=== PATIENT | male | born 1945 | race Two or more races ===

== ENCOUNTER 2018-11-20 21:08 | Inpatient (IN) | payer MEDICARE, OTHER ==
[~2018-11-20] VITALS: Ht 170.2 cm; Wt 74.6 kg
[2018-11-20 22:25] LABS: Basophils # (auto) 0.1 uL; Basophils % (auto) 1.6 % (0.0-2.0); Eosinophils # (auto) 0.1 uL; Eosinophils % (auto) 2.7 % (0.0-7.0); Hematocrit 42.5 % (41.0-53.0); Hemoglobin 14.2 g/dL (13.5-17.5); Lymphocytes # (auto) 0.7 uL; Lymphocytes % (auto) 14.3 % (10.0-50.0); Mean Corpuscular Hemoglobin 31.3 pg (28.0-32.0); Mean Corpuscular Hgb Conc. 33.4 g/dL (32.0-36.0); Mean Corpuscular Volume 93.7 fL (80.0-100.0); Monocytes # (auto) 0.7 uL; Neutrophils # (auto) 3.3 uL; Neutrophils % (auto) 66.4 % (37.0-80.0); Nucleated Red Blood Cells % 0.1 %; Platelet Count (auto) 143 10^3/uL (140-450); Red Blood Cells 4.54 10^6/uL (4.5-5.90); Red Cell Distribution Width 17.6 % (11.8-14.3)
[2018-11-20 22:37] LABS: Potassium 4.5 mmol/L (3.5-5.1)
[2018-11-20 22:45] LABS: Albumin 3.6 g/dL (3.4-5.0); BUN/Creatinine Ratio 20.2; Bilirubin, Total 0.9 mg/dL (0.2-1.0); Total Protein 7.6 g/dL (6.4-8.2)
[2018-11-21 01:39] LABS: Urine Bacteria NONE SEEN /hpf (None Seen); Urine Blood Negative /uL (Negative); Urine Hyaline Cast FEW /lpf (0 - 2); Urine Specific Gravity 1.011 (1.001-1.035); Urine WBC <1 /hpf (0 - 3)
[2018-11-21] MEDS ORDERED: FUROSEMIDE 20 MG/2 ML VIAL IV ONE (03:15)
[2018-11-21] MEDS ORDERED: diphenhdrAMINE HCL 25 MG CAP PO PRN (04:00)
[2018-11-21] MEDS ORDERED: traMADol HCL 50 MG TAB PO PRN (04:00)
[2018-11-21] MEDS ORDERED: DOCUSATE SOD 100 MG CAP PO PRN (04:00)
[2018-11-21] MEDS ORDERED: MORPHINE SULF INJ 2 MG/ML SYRINGE 1ML IV PRN (04:00)
[2018-11-21] MEDS ORDERED: ACETAMINOPHEN 500 MG TAB PO PRN (04:00)
[2018-11-21] MEDS ORDERED: ONDANSETRON HCL 4 MG/2 ML VIAL IV PRN (04:00)
[2018-11-21] MEDS ORDERED: NITROGLYCERIN 0.4 MG SL TAB SL PRN (04:00)
[2018-11-21] MEDS ORDERED: cloNIDine HCL 0.1 MG TAB PO PRN (04:15)
[2018-11-21] MEDS ORDERED: ALBUTEROL SULF 2.5 MG/0.5ML(0.5%) NEB SOLN NEB ONE (04:30)
[2018-11-21] MEDS ORDERED: IPRATROPIUM BROM 0.5 MG/2.5ML INH SOL NEB ONE (04:30)
--- NOTE | 2018-11-21 05:13 | NUR ---
Telemetry admit from ER BIPIN RAPHAEL admitted to Telemetry unit after SBAR received. Patient oriented to Bob Alvarado primary RN, unit, room, bed, and unit policies regarding patient care and visiting hours. Patient now on continuous telemetry monitoring, tele box # 36 and telemetry reading on arrival to unit is sinus tachycardia. Patient placed on bedside oxygen, weighed by bedscale and encouraged to call if they need something. All questions and concerns addressed, patient verbalized understanding.
[2018-11-21 05:46] VITALS: BP 143/85
[2018-11-21] MEDS: FUROSEMIDE 40 MG/4 ML VIAL IV SCH ×2 (05:49→17:02)
--- NOTE | 2018-11-21 08:05 | NUR ---
Opening Shift Note Assumed care of patient. Patient is awake, alert, and expressing frustration with unwanted hospital stay. Patient has left forearm IV 18 gauge peripheral IV. No S/S of distress/SOB or pain. Instructed on POC and to call for assist PRN, will continue to monitor for changes Q1hr and PRN.
[2018-11-21 08:46] LABS: Basophils # (auto) 0.1 uL; Basophils % (auto) 1.1 % (0.0-2.0); Eosinophils # (auto) 0.1 uL; Eosinophils % (auto) 0.8 % (0.0-7.0); Hematocrit 47.2 % (41.0-53.0); Hemoglobin 15.7 g/dL (13.5-17.5); Lymphocytes # (auto) 0.6 uL; Lymphocytes % (auto) 9.6 % (10.0-50.0); Mean Corpuscular Hemoglobin 31.2 pg (28.0-32.0); Mean Corpuscular Hgb Conc. 33.3 g/dL (32.0-36.0); Mean Corpuscular Volume 93.7 fL (80.0-100.0); Monocytes # (auto) 0.5 uL; Monocytes % (auto) 8.4 % (0.0-12.0); Neutrophils # (auto) 4.9 uL; Neutrophils % (auto) 80.1 % (37.0-80.0); Nucleated Red Blood Cells % 0.1 %; Platelet Count (auto) 162 10^3/uL (140-450); Red Blood Cells 5.04 10^6/uL (4.5-5.90); White Blood Cell 6.1 10^3/uL (4.4-10.8)
[2018-11-21 09:00] VITALS: BP 127/86
[2018-11-21 09:03] LABS: BUN/Creatinine Ratio 18.8; Calcium 9.2 mg/dL (8.5-10.1); Potassium 3.6 mmol/L (3.5-5.1)
[2018-11-21] MEDS: PANTOPRAZOLE 40 MG TAB PO SCH (09:50)
[2018-11-21] MEDS: ASPirin-EC 81 mg tab PO SCH (09:50)
[2018-11-21] MEDS ORDERED: ENOXAPARIN SOD 40 MG/0.4 ML SYRINGE SC SCH (10:00)
[2018-11-21] MEDS ORDERED: OPTISON 3ml Vial for INJ IV ONE (10:38)
[2018-11-21] MEDS ORDERED: SACU1TAB PO (12:12)
[2018-11-21] MEDS ORDERED: CLON0.1T PO (12:12)
[2018-11-21] MEDS ORDERED: ASPI-231 PO (12:12)
[2018-11-21] MEDS ORDERED: FER325T PO (12:12)
[2018-11-21] MEDS ORDERED: FURO80TA3 PO (12:12)
[2018-11-21 13:00] VITALS: BP 134/113
--- NOTE | 2018-11-21 13:25 | NUR ---
MD Notification Upon entering room, patient was experiencing shortness of breath and change in mentation. Patient's vital signs were taken BP 132/93 HR 136, RR 20, Oxygen Saturation 89%. Patient was placed in Semi-Fowlers and placed on nasal cannula 3L; oxygen saturation now 91%. Dr. Solo was called and said cardiac consult would be placed. Will continue to monitor patient.
[2018-11-21 17:19] VITALS: BP 128/78
--- NOTE | 2018-11-21 17:45 | NUR ---
DR. EILSE AT BEDSIDE DISCUSSING POC WITH PATIENT AND FAMILY. DR. ELISE IS PATIENT'S RN FIELD CASE MANAGER. ORDER TO BE PLACED FOR NEUROLOGY CONSULT FOR PATIENTS CHANGE IN MENTATION.
--- NOTE | 2018-11-21 19:15 | NUR ---
Opening Shift Note Received report from Peggy SNYDER. Assumed care of patient, awake and alert, family at bedside. No S/S of distress/SOB or pain. Instructed on POC and to call for assist PRN. Fall precaution measures in place, will continue to monitor for changes Q1hr and PRN.
[2018-11-21 22:00] VITALS: BP 138/70
[2018-11-21] MEDS: CARVEDILOL 3.125 MG TAB PO SCH (22:19)
[2018-11-22 05:00] VITALS: BP 121/75
[2018-11-22 05:49] LABS: BUN/Creatinine Ratio 20.5; Calcium 8.4 mg/dL (8.5-10.1)
[2018-11-22] MEDS: FUROSEMIDE 40 MG/4 ML VIAL IV SCH ×2 (06:01→18:21)
[2018-11-22 08:00] VITALS: BP 119/73
[2018-11-22 09:00] VITALS: BP 119/73
[2018-11-22] MEDS ORDERED: POTASSIUM CHL 20 Meq TABLET PO ONE ×2 (09:15→09:30)
[2018-11-22] MEDS ORDERED: POTASSIUM EFFERVESENT TAB 25 MEQ PO ONE (09:15)
[2018-11-22] MEDS: CARVEDILOL 3.125 MG TAB PO SCH ×2 (10:32→21:19)
[2018-11-22] MEDS: ASPirin-EC 81 mg tab PO SCH (10:32)
[2018-11-22] MEDS: PANTOPRAZOLE 40 MG TAB PO SCH (10:32)
[2018-11-22 13:00] VITALS: BP 110/73
[2018-11-22 17:00] VITALS: BP 118/77
--- NOTE | 2018-11-22 19:30 | NUR ---
Opening Shift Note Assumed care of patient. Patient awake and alert. No S/S of distress/SOB or pain. Instructed on POC and to call for assist PRN, will continue to monitor for changes. Bed locked in lowest position and bed rails up x2. Call light within reach.
[2018-11-22 21:36] VITALS: BP 113/70
--- NOTE | 2018-11-22 21:40 | NUR ---
Oxygen saturation level at 90%. Nasal cannula placed on patient at 2.5lpm. Reassessment of 99% was recorded
[2018-11-23 05:06] VITALS: BP 132/87
[2018-11-23 05:58] LABS: Potassium 3.6 mmol/L (3.5-5.1)
[2018-11-23 06:01] LABS: BUN/Creatinine Ratio 21.1
[2018-11-23] MEDS: FUROSEMIDE 40 MG/4 ML VIAL IV SCH (06:32)
[2018-11-23 07:06] LABS: RPR Non Reactive (Non Reactive)
--- NOTE | 2018-11-23 07:50 | NUR ---
Opening Shift Note Assumed care of patient, awake and alert. No S/S of distress/SOB or pain. Instructed on POC and to call for assist PRN, will continue to monitor for changes Q1hr and PRN.
[2018-11-23 08:20] VITALS: BP 132/86
[2018-11-23 08:46] VITALS: BP 132/86
--- NOTE | 2018-11-23 10:00 | NUR ---
Per Doctor Germania, Patient can have MRI as out patient. Patient okay to continue with discharge.
[2018-11-23] MEDS ORDERED: FUROSEMIDE 40 MG/4 ML VIAL IV SCH (10:15)
[2018-11-23] MEDS: CARVEDILOL 3.125 MG TAB PO SCH (10:19)
[2018-11-23] MEDS: PANTOPRAZOLE 40 MG TAB PO SCH ×2 (10:19→10:28)
[2018-11-23] MEDS: ASPirin-EC 81 mg tab PO SCH ×2 (10:20→10:29)
--- NOTE | 2018-11-23 11:20 | NUR ---
Per Doctor Karoline, Patient can have CT as out patient. Patient is okay to continue with discharge.
--- NOTE | 2018-11-23 11:33 | NUR ---
Discharge instructions given as ordered. Encourage to follow up with PMD as instructed. All questions and concerns addressed. Patient verbalized understanding. Medication reconciliation form completed and copy given to patient. No home medications held in Pharmacy and none returned to patient, and no needed vaccines given. IV removed with catheter intact, pressure dressing applied. Telemetry unit returned to ICU. Patient taken to lobby via wheelchair per patient request with all personal belongings, accompanied by staff. No distress noted at time of departure.
--- NOTE | 2018-11-23 13:57 | NUR ---
assessment re: elise consult for discharge planning Patient is a 73 year old male who is alert and oriented. Patients cognitive abilities are intact. Prior to admission patient lived home with family and functioned independently. Patient informed me he is able to care for his own ADLs. Per patient he will return home to his prior living arrangements post discharge and family will transport him home. Patient informed me he has a cane and rollator for home use. Patient informed me his PCP is Dr Garces. Patient informed me he has good family support. Patient informed me he feels safe returning home on discharge. Patient has no post discharge needs at this time. I informed patient he has a right to speak to a social worker psychiatric regarding all care. I informed patient he has a right to participate in any and all discharge planning. Patient does not have a POA and advanced directive. I have offered patient information on POA and advanced directives. I informed the patient the advantages and benefits of having an Advanced Directive. Patient verbalized understanding and agreed to discharge plan. Addendum: 11/23/18 at 1400 by Carol DUVALL Amended: Links added.
== END 2018-11-23 11:25 | disposition home or self-care (01) | DRG 291 ==
LOC: ER 21:15 → TELE 21:16 → TELE-CENTR 11-21 05:13
PROVIDERS: ADMIT Nurse Practitioner Family; ATTEND Internal Medicine
DX: I13.0 Hypertensive heart and chronic kidney disease with heart failure and stage 1 through stage 4 chronic kidney disease, or unspecified chronic kidney disease (principal); I50.43 Acute on chronic combined systolic (congestive) and diastolic (congestive) heart failure; J96.00 Acute respiratory failure, unspecified whether with hypoxia or hypercapnia; N17.9 Acute kidney failure, unspecified; G93.40 Encephalopathy, unspecified; R18.8 Other ascites; K21.9 Gastro-esophageal reflux disease without esophagitis; I25.10 Atherosclerotic heart disease of native coronary artery without angina pectoris; N18.3 Chronic kidney disease, stage 3 (moderate); K74.60 Unspecified cirrhosis of liver; E87.6 Hypokalemia; E78.5 Hyperlipidemia, unspecified; G89.29 Other chronic pain; K57.90 Diverticulosis of intestine, part unspecified, without perforation or abscess without bleeding; E11.22 Type 2 diabetes mellitus with diabetic chronic kidney disease; F03.90 Unspecified dementia, unspecified severity, without behavioral disturbance, psychotic disturbance, mood disturbance, and anxiety; I25.5 Ischemic cardiomyopathy; Z83.49 Family history of other endocrine, nutritional and metabolic diseases; Z95.5 Presence of coronary angioplasty implant and graft; I25.2 Old myocardial infarction; Z95.1 Presence of aortocoronary bypass graft; Z95.810 Presence of automatic (implantable) cardiac defibrillator; Z86.74 Personal history of sudden cardiac arrest; Z79.899 Other long term (current) drug therapy
CPT/HCPCS: 36415; 36600; 71045; 76775; 80048; 80053; 81001; 82140; 82607; 82805; 83735; 83880; 84425; 84443; 84484; 85025; 86592; 87040; 93005; 93306; 94640; 94761; 96372; 96374; 96375; 97116; 97530; G0378; Q9956

== ENCOUNTER 2018-12-25 16:51 | Emergency (ER) | payer MEDICARE, OTHER ==
[~2018-12-25] VITALS: Ht 170.2 cm; Wt 70.3 kg
[~2018-12-25 16:51] MED LIST: ASPI-231 PO; CLON0.1T PO; FER325T PO; FURO80TA3 PO; SACU1TAB PO
[2018-12-25 23:53] VITALS: BP 138/95
== END 2018-12-26 | disposition home or self-care (01) ==
LOC: ER 16:54
DX: M54.2 Cervicalgia (principal); R55 Syncope and collapse; I11.0 Hypertensive heart disease with heart failure; I50.9 Heart failure, unspecified; I25.2 Old myocardial infarction; Z95.0 Presence of cardiac pacemaker; Z98.61 Coronary angioplasty status
CPT/HCPCS: 72125; 93005

== ENCOUNTER 2019-03-06 12:10 | Inpatient (IN) | payer MEDICARE, OTHER ==
[~2019-03-06] VITALS: Ht 170.2 cm; Wt 79.3 kg
[2019-03-06 12:40] LABS: Basophils # (auto) 0.1 uL; Basophils % (auto) 1.2 % (0.0-2.0); Eosinophils # (auto) 0.1 uL; Eosinophils % (auto) 1.5 % (0.0-7.0); Hemoglobin 16.6 g/dL (13.5-17.5); Lymphocytes # (auto) 0.5 uL; Lymphocytes % (auto) 11.1 % (10.0-50.0); Mean Corpuscular Hemoglobin 32.2 pg (28.0-32.0); Mean Corpuscular Hgb Conc. 33.9 g/dL (32.0-36.0); Mean Corpuscular Volume 94.9 fL (80.0-100.0); Monocytes # (auto) 0.5 uL; Monocytes % (auto) 10.8 % (0.0-12.0); Neutrophils # (auto) 3.7 uL; Neutrophils % (auto) 75.4 % (37.0-80.0); Nucleated Red Blood Cells % 0.1 %; Platelet Count (auto) 123 10^3/uL (140-450); Red Blood Cells 5.17 10^6/uL (4.5-5.90); Red Cell Distribution Width 19.2 % (11.8-14.3); White Blood Cell 4.9 10^3/uL (4.4-10.8)
[2019-03-06 12:53] LABS: Urine Bacteria NONE SEEN /hpf (None Seen); Urine Blood Negative /uL (Negative); Urine Specific Gravity 1.007 (1.001-1.035); Urine Sperm PRESENT /hpf (None Seen); Urine WBC 4 /hpf (0 - 3)
[2019-03-06 12:56] LABS: Albumin 3.6 g/dL (3.4-5.0); Calcium 9.3 mg/dL (8.5-10.1)
[2019-03-06 12:59] LABS: BUN/Creatinine Ratio 19.9; Total Protein 7.5 g/dL (6.4-8.2)
[2019-03-06 14:14] LABS: Magnesium 2.9 mg/dL (1.6-2.6)
[2019-03-06 14:25] LABS: INR 1.3 (0.9-1.15); Partial Thromboplastin Time 31.6 sec (23.64-32.05)
[2019-03-06] MEDS ORDERED: FUROSEMIDE 40 MG/4 ML VIAL IV ONE (15:45)
[2019-03-06] MEDS ORDERED: ACETAMINOPHEN 500 MG TAB PO PRN (17:15)
[2019-03-06] MEDS ORDERED: ONDANSETRON HCL 4 MG/2 ML VIAL IV PRN (17:15)
[2019-03-06] MEDS ORDERED: MORPHINE SULF INJ 2 MG/ML SYRINGE 1ML IV PRN ×2 (17:15)
[2019-03-06] MEDS ORDERED: HYDROcodone-ACET 5/325MG TAB PO PRN (17:15)
[2019-03-06] MEDS ORDERED: NITROGLYCERIN 0.4 MG SL TAB SL PRN (17:15)
[2019-03-06] MEDS ORDERED: NITROGLYCERIN 0.2MG/HR TOPICAL PATCH TD ONE (17:15)
[2019-03-06] MEDS: SPIRONOLACTONE 25 MG TAB PO SCH (17:30)
[2019-03-06 22:00] VITALS: BP 140/70
--- NOTE | 2019-03-06 22:00 | NUR ---
Telemetry admit from ER DONAVONBIPIN admitted to Telemetry unit after SBAR received. Patient oriented to STANTON MONTANEZ RN primary RN, unit, room, bed, and unit policies regarding patient care and visiting hours. Patient now on continuous telemetry monitoring, tele box #35 and telemetry reading on arrival to unit is VPACED. Patient placed on bedside oxygen, weighed by bedscale and encouraged to call if they need something. All questions and concerns addressed, patient verbalized understanding. Note:
[2019-03-06] MEDS: ATORVASTATIN 20 MG TAB PO SCH (22:26)
[2019-03-06] MEDS: CARVEDILOL 3.125 MG TAB PO SCH (22:26)
[2019-03-07] MEDS: SPIRONOLACTONE 25 MG TAB PO SCH (05:41)
[2019-03-07 05:48] VITALS: BP 123/82
--- NOTE | 2019-03-07 08:00 | NUR ---
Opening Shift Note Assumed care of patient, awake but very confused. No S/S of distress/SOB or pain. Patient kept getting out of the bed. Closely monitored. Will continue to monitor for changes Q1hr and PRN.
[2019-03-07 08:26] LABS: Basophils # (auto) 0.1 uL; Basophils % (auto) 1.8 % (0.0-2.0); Eosinophils # (auto) 0.1 uL; Eosinophils % (auto) 2.4 % (0.0-7.0); Hematocrit 48.5 % (41.0-53.0); Hemoglobin 16.3 g/dL (13.5-17.5); Lymphocytes # (auto) 0.6 uL; Lymphocytes % (auto) 12.1 % (10.0-50.0); Mean Corpuscular Hgb Conc. 33.5 g/dL (32.0-36.0); Mean Corpuscular Volume 95.5 fL (80.0-100.0); Monocytes # (auto) 0.7 uL; Monocytes % (auto) 13.1 % (0.0-12.0); Neutrophils # (auto) 3.6 uL; Neutrophils % (auto) 70.6 % (37.0-80.0); Nucleated Red Blood Cells % 0.1 %; Platelet Count (auto) 116 10^3/uL (140-450); Red Blood Cells 5.08 10^6/uL (4.5-5.90); Red Cell Distribution Width 19.8 % (11.8-14.3)
[2019-03-07 08:43] LABS: Albumin 3.3 g/dL (3.4-5.0); Calcium 9.1 mg/dL (8.5-10.1); Magnesium 2.9 mg/dL (1.6-2.6); Potassium 3.7 mmol/L (3.5-5.1)
[2019-03-07 08:47] LABS: BUN/Creatinine Ratio 19.4; Bilirubin, Total 2.1 mg/dL (0.2-1.0); Total Protein 7.5 g/dL (6.4-8.2)
[2019-03-07 09:00] VITALS: BP 106/73
[2019-03-07] MEDS: FAMOTIDINE 20 MG TAB PO SCH (09:33)
[2019-03-07] MEDS: ASPirin-EC 81 mg tab PO SCH (09:33)
[2019-03-07] MEDS: FUROSEMIDE 40 MG/4 ML VIAL IV SCH ×2 (09:33→18:29)
[2019-03-07] MEDS: CARVEDILOL 3.125 MG TAB PO SCH ×2 (09:37→22:04)
[2019-03-07] MEDS ORDERED: LOSARTAN POTASSIUM 50 MG TAB PO SCH (10:00)
--- NOTE | 2019-03-07 10:00 | NUR ---
Patient's at the bedside. Patient is calm at this time.
--- NOTE | 2019-03-07 10:50 | NUR ---
Patient pulled out Telebox, very confused and agitated. Patient's still at the bedside and agreed to stay during the day. Jossie SNYDER charge informed about this and will work on providing a sitter later.
[2019-03-07] MEDS ORDERED: metOLazone 5 MG TAB PO ONE (12:00)
[2019-03-07 13:00] VITALS: BP 102/78
[2019-03-07 16:20] VITALS: BP 122/80
--- NOTE | 2019-03-07 16:22 | NUR ---
Complaints of lightheadedness and headache. Patient stated that he started feeling these after taking the Metolazone PO given 2-3 hours ago VS taken and recorded. Will continue care. Addendum: 03/07/19 at 1851 by Jesse Christopher RN Patient and family does not want Metolazone PO given anymore.
[2019-03-07 17:00] VITALS: BP 121/80
[2019-03-07 22:00] VITALS: BP 111/72
[2019-03-07] MEDS: ATORVASTATIN 20 MG TAB PO SCH (22:05)
[2019-03-08 05:00] VITALS: BP 115/74
[2019-03-08 06:18] LABS: Anion Gap 8 (5-15); BUN/Creatinine Ratio 22.6; Blood Urea Nitrogen 38 mg/dL (7-18); Calcium 9.4 mg/dL (8.5-10.1); Carbon Dioxide 29 mmol/L (21-32); Chloride 103 mmol/L (98-107); GFR African American 51 mL/min; GFR Non-African American 43 mL/min; Glucose 90 mg/dL (74-106); Potassium 3.6 mmol/L (3.5-5.1); Sodium 140 mmol/L (136-145)
[2019-03-08] MEDS: FUROSEMIDE 40 MG/4 ML VIAL IV SCH ×2 (07:01→18:30)
[2019-03-08 08:00] VITALS: BP 117/72
--- NOTE | 2019-03-08 08:00 | NUR ---
Opening Shift Note Assumed care of patient, awake but confused. No S/S of distress/SOB or pain. With sitter at bedside. Will continue to monitor for changes Q1hr and PRN.
[2019-03-08] MEDS: ASPirin-EC 81 mg tab PO SCH (09:41)
[2019-03-08] MEDS ORDERED: metOLazone 5 MG TAB PO SCH (10:00)
[2019-03-08] MEDS: CARVEDILOL 3.125 MG TAB PO SCH ×2 (10:00→22:02)
[2019-03-08] MEDS: FAMOTIDINE 20 MG TAB PO SCH (10:00)
[2019-03-08] MEDS ORDERED: SPIRONOLACTONE 25 MG TAB PO SCH (10:00)
--- NOTE | 2019-03-08 10:30 | NUR ---
Dr. Wesley at bedside, patient is advised. Made him aware that patient experienced light headedness, headache and panic attacks yesterday after metolazone PO administration. Orders received from Dr. Wesley to discontinue the medication.
--- NOTE | 2019-03-08 16:52 | NUR ---
Increasing confusion noted. Sitter at the bedside. Continue to monitor.
[2019-03-08 21:30] VITALS: BP 101/63
[2019-03-08] MEDS: ATORVASTATIN 20 MG TAB PO SCH (22:02)
[2019-03-09 05:00] VITALS: BP 121/81
[2019-03-09] MEDS: FUROSEMIDE 40 MG/4 ML VIAL IV SCH (05:39)
[2019-03-09 06:47] LABS: Basophils # (auto) 0.1 uL; Basophils % (auto) 1.3 % (0.0-2.0); Eosinophils # (auto) 0.1 uL; Eosinophils % (auto) 2.7 % (0.0-7.0); Hematocrit 48.9 % (41.0-53.0); Hemoglobin 16.4 g/dL (13.5-17.5); Lymphocytes # (auto) 0.6 uL; Lymphocytes % (auto) 12.2 % (10.0-50.0); Mean Corpuscular Hemoglobin 31.9 pg (28.0-32.0); Mean Corpuscular Hgb Conc. 33.5 g/dL (32.0-36.0); Mean Corpuscular Volume 95.2 fL (80.0-100.0); Monocytes # (auto) 0.6 uL; Monocytes % (auto) 11.9 % (0.0-12.0); Neutrophils # (auto) 3.6 uL; Neutrophils % (auto) 71.9 % (37.0-80.0); Nucleated Red Blood Cells % 0.4 %; Platelet Count (auto) 113 10^3/uL (140-450); Red Blood Cells 5.13 10^6/uL (4.5-5.90); White Blood Cell 4.9 10^3/uL (4.4-10.8)
[2019-03-09 07:02] LABS: Albumin 3.3 g/dL (3.4-5.0); Calcium 9.2 mg/dL (8.5-10.1); Magnesium 2.8 mg/dL (1.6-2.6); Potassium 3.7 mmol/L (3.5-5.1)
[2019-03-09 07:05] LABS: INR 1.37 (0.9-1.15)
[2019-03-09 07:06] LABS: BUN/Creatinine Ratio 24.4; Bilirubin, Total 1.4 mg/dL (0.2-1.0); Phosphorus 3.4 mg/dL (2.5-4.90); Total Protein 7.2 g/dL (6.4-8.2)
--- NOTE | 2019-03-09 08:00 | NUR ---
Opening Shift Note Assumed care of patient, awake with periods of confusion. No S/S of distress/SOB or pain. With sitter at bedside. Will continue to monitor for changes Q1hr and PRN.
--- NOTE | 2019-03-09 08:45 | NUR ---
AMA Note BIPIN RAPHAEL stated he want to go home, patient is confused. Patient's son came in and stated the family wanted to leave the hospital Against Medical Advice (AMA). Encouraged to stay for further treatment/stabilization. Nereyda Couch MD notified of patient's wishes. Patient/patient's son advised of the risks and benefits of leaving AMA. Patient's son verbalized understanding. Encouraged to return to the ER if symptoms do not improve or worsen.
[2019-03-09] MEDS ORDERED: ENOXAPARIN SOD 40 MG/0.4 ML SYRINGE SC SCH (10:00)
[2019-03-09] MEDS ORDERED: LISINOPRIL 5 MG TAB PO SCH (10:00)
== END 2019-03-09 08:45 | disposition left against medical advice (07) | DRG 291 ==
LOC: ER 12:10 → TELE 12:11 → TELE-CENTR 20:08
PROVIDERS: ADMIT Nurse Practitioner Acute Care; ATTEND Internal Medicine
DX: I13.0 Hypertensive heart and chronic kidney disease with heart failure and stage 1 through stage 4 chronic kidney disease, or unspecified chronic kidney disease (principal); J96.01 Acute respiratory failure with hypoxia; I50.43 Acute on chronic combined systolic (congestive) and diastolic (congestive) heart failure; N17.9 Acute kidney failure, unspecified; E44.0 Moderate protein-calorie malnutrition; D69.6 Thrombocytopenia, unspecified; N18.3 Chronic kidney disease, stage 3 (moderate); K70.30 Alcoholic cirrhosis of liver without ascites; Z53.29 Procedure and treatment not carried out because of patient's decision for other reasons; F32.9 Major depressive disorder, single episode, unspecified; I25.5 Ischemic cardiomyopathy; I25.10 Atherosclerotic heart disease of native coronary artery without angina pectoris; E78.5 Hyperlipidemia, unspecified; Z79.82 Long term (current) use of aspirin; Z95.810 Presence of automatic (implantable) cardiac defibrillator; Z82.49 Family history of ischemic heart disease and other diseases of the circulatory system; Z95.1 Presence of aortocoronary bypass graft; Z95.5 Presence of coronary angioplasty implant and graft; Z87.891 Personal history of nicotine dependence; Z68.27 Body mass index [BMI] 27.0-27.9, adult
CPT/HCPCS: 36415; 71045; 80048; 80053; 80061; 81001; 83735; 83880; 84100; 84443; 84484; 85025; 85610; 85730; 86141; 93005; 96374; G0378

== ENCOUNTER 2019-04-17 04:15 | Inpatient (IN) | payer MEDICARE, OTHER ==
[~2019-04-17] VITALS: Ht 177.8 cm; Wt 68.6 kg
[2019-04-17] VITALS (67 sets, daily range): BP systolic 92–138; BP diastolic 50–103
[2019-04-17] MEDS ORDERED: LORazepam 2MG/ML-1ML VIAL IV ONE (04:45)
[2019-04-17] MEDS ORDERED: SODIUM CHLORIDE 0.9% 1,000 ML IV ONE (05:00)
[2019-04-17] MEDS ORDERED: VANCOMYCIN 1GM/250ML 250 ML IV ONE (05:00)
[2019-04-17] MEDS ORDERED: PIPERACILLIN-TAZOB 3.375GM 100 ML IV ONE (05:00)
[2019-04-17] MEDS ORDERED: VANCOMYCIN PER PHARMACY 0 MG IV SCH ×2 (05:00→07:45)
[2019-04-17 05:14] LABS: Basophils # (auto) 0.1 10 ^3/uL (0-0.2); Basophils % (auto) 0.8 % (0.0-2.0); Eosinophils # (auto) 0.1 10 ^3/uL (0-0.8); Eosinophils % (auto) 2.2 % (0.0-7.0); Hematocrit 46.3 % (41.0-53.0); Hemoglobin 15.8 g/dL (13.5-17.5); Lymphocytes # (auto) 1.1 10 ^3/uL (0.4-5.4); Lymphocytes % (auto) 17.4 % (10.0-50.0); Mean Corpuscular Hemoglobin 32.4 pg (28.0-32.0); Mean Corpuscular Hgb Conc. 34.1 g/dL (32.0-36.0); Mean Corpuscular Volume 95.1 fL (80.0-100.0); Monocytes # (auto) 0.7 10 ^3/uL (0-1.3); Monocytes % (auto) 10.6 % (0.0-12.0); Neutrophils # (auto) 4.5 10 ^3/uL (1.6-8.6); Nucleated Red Blood Cells % 0.3 %; Platelet Count (auto) 132 10^3/uL (140-450); Red Blood Cells 4.87 10^6/uL (4.5-5.90); Red Cell Distribution Width 18.6 % (11.8-14.3); White Blood Cell 6.5 10^3/uL (4.4-10.8)
[2019-04-17 05:18] LABS: Urine Bacteria FEW /hpf (None Seen); Urine Blood TRACE /uL (Negative); Urine Hyaline Cast MANY /lpf (0 - 2); Urine Mucus FEW (None Seen); Urine Specific Gravity 1.014 (1.001-1.035); Urine WBC 11 /hpf (0 - 3); Urine WBC Clumps PRESENT /hpf (None Seen)
[2019-04-17 05:25] LABS: INR 1.4 (0.9-1.15); Partial Thromboplastin Time 29.3 sec (23.64-32.05)
[2019-04-17] MEDS ORDERED: ACETAMINOPHEN 650 MG RECT SUPP PR ONE (05:30)
[2019-04-17 05:32] LABS: Chloride 108 mmol/L (98-107); Lactic Acid w/Reflex 3.5 mmol/L (0.4-2.0); Sodium 141 mmol/L (136-145)
[2019-04-17 05:37] LABS: Alanine Aminotransferase 22 U/L (16-61); Albumin 3.4 g/dL (3.4-5.0); Anion Gap 11 (5-15); Aspartate Aminotransferase 23 U/L (15-37); BUN/Creatinine Ratio 18.5; Blood Alcohol < 3.0 mg/dL (0-5); Blood Urea Nitrogen 30 mg/dL (7-18); Calcium 9.1 mg/dL (8.5-10.1); Carbon Dioxide 22 mmol/L (21-32); GFR African American 54 mL/min; GFR Non-African American 44 mL/min; Glucose 131 mg/dL (74-106); Magnesium 2.3 mg/dL (1.6-2.6)
[2019-04-17 05:40] LABS: Alcohol, Urine < 3.0 mg/dL (0-5); Amphetamine Screen, Urine NEGATIVE (NEGATIVE); Barbiturate Scree,Urine NEGATIVE (NEGATIVE); Benzodiazephine Screen, Urine NEGATIVE (NEGATIVE); Cannabinoid Screen, Urine NEGATIVE (NEGATIVE); Cocaine Screen, Urine NEGATIVE (NEGATIVE); Opiate Scree,Urine NEGATIVE (NEGATIVE); Phencyclidine Screen, Urine NEGATIVE (NEGATIVE)
[2019-04-17 05:42] LABS: Alkaline Phosphatase 144 U/L (45-117); Bilirubin, Total 1.5 mg/dL (0.2-1.0); Total Protein 7.3 g/dL (6.4-8.2)
[2019-04-17] MEDS ORDERED: MIDAZOLAM DRIP 50 mg/50mL 50 ML IV ONE (06:12)
[2019-04-17] MEDS ORDERED: ETOMIDATE (2MG/ML) 20ML VIAL IV ONE ×2 (06:12→06:15)
[2019-04-17] MEDS ORDERED: SUCCINYLCHOLINE CHLORIDE 20 MG/ML 10ML VIAL IV ONE ×2 (06:13→06:15)
[2019-04-17] MEDS ORDERED: NOREPINEPHRINE 8 MG/250ML KIT 250 ML IV ONE (06:13)
[2019-04-17] MEDS ORDERED: NOREPINEPHRINE 8 MG/250ML KIT 250 ML IV SCH (06:15)
[2019-04-17] MEDS ORDERED: POTASSIUM CHL 20MEQ/100ML 100 ML IV ONE (06:30)
[2019-04-17] MEDS: MIDAZOLAM DRIP 50 mg/50mL 50 ML IV SCH ×2 (06:52→11:52)
[2019-04-17] MEDS ORDERED: NITROGLYCERIN 0.4 MG SL TAB SL PRN (07:45)
[2019-04-17] MEDS ORDERED: ONDANSETRON HCL 4 MG/2 ML VIAL IV PRN (07:45)
[2019-04-17] MEDS ORDERED: ENOXAPARIN SOD 100 MG/1 ML SYRINGE SC ONE (07:45)
[2019-04-17] MEDS ORDERED: MORPHINE SULF INJ 2 MG/ML SYRINGE 1ML IV PRN (07:45)
[2019-04-17] MEDS ORDERED: ACETAMINOPHEN 325 MG TAB PO PRN (07:45)
[2019-04-17] MEDS ORDERED: ENOXAPARIN SOD 80 MG/0.8ML SYRINGE SC ONE (08:00)
[2019-04-17] MEDS: FUROSEMIDE 40 MG/4 ML VIAL IV SCH ×2 (08:24→18:28)
--- NOTE | 2019-04-17 09:10 | NUR ---
RECEIVED PT AT ICU AT 0910
--- NOTE | 2019-04-17 10:10 | NUR ---
DR. RAPHAEL UPDATED DR RAPHAEL OVER TELEPHONE ON PT STATUS
--- NOTE | 2019-04-17 10:10 | NUR ---
ADVANCED ETT, ETT NOW SECURED AT 24 CM AT THE LIP WITH CHERY. EQUAL BILAT BREATH SOUNDS AUSCULTATED.
[2019-04-17] MEDS: ASPirin 81 mg TAB PO SCH (10:51)
[2019-04-17] MEDS: PANTOPRAZOLE 40 MG/10 ML VIAL INJ IV SCH (10:51)
--- NOTE | 2019-04-17 11:00 | NUR ---
FAMILY AT BEDSIDE FAMILY UPDATED ON PT CARE, QUESTIONS AND CONCERNS ADDRESSED
--- NOTE | 2019-04-17 11:14 | NUR ---
MEDICATION RECONCILIATION INSTRUCTED TO BRING IN HOME MEDICATIONS. PER SHE WILL BRING IN MEDICATIONS TONIGHT OR TOMORROW
[2019-04-17] MEDS: PIPERACILLIN-TAZOB 3.375GM 100 ML IV SCH ×2 (11:52→18:29)
[2019-04-17] MEDS: POTASSIUM CHL 20MEQ/100ML 100 ML IV SCH ×2 (12:03→13:31)
--- NOTE | 2019-04-17 13:23 | NUR ---
DR. BATEMAN AT BEDSIDE UPDATED MD ON PT STATUS AND LABS
--- NOTE | 2019-04-17 16:47 | NUR ---
PAGED DR ELISE LEFT MESSAGE ABOUT ELEVATED TROPONIN LEVELS
--- NOTE | 2019-04-17 17:37 | NUR ---
WOUND CARE NOTE: Wound care into see patient per wound care request regarding "skin tear left wrist, low Sathya" that are noted present on admission. Bedside nurse took photograph of patient's wound upon admission for reference. Patient is 74 years old male with admitting diagnosis of Acute Resp Failure, Sepsis. Patient with history of Depression, Htn, MA, COPD, CHF, CAD. Patient is resting in ICU bed in Rm. 105. Patient is intubated,sedated and mechanically ventilated. Patient appears to be in no pain using [place] Wolf Faces Pain Scale. His Sathya score is 13. Skin assessment done with the assistance of patient's nurse, CLAUDIO Singer. Patient's L wrist noted with 2x2cm open full thickness skin tear. Wound is red with purple ecchymotic periwound, minimal sanguinous drainage noted, no odor noted. Cleansed patient's L wrist skin tears with NS,patted dry with gauze, applied Thera honey gauze and covered with Opti foam gentle dressing. Patient's bilateral feet noted with red, mottled, blanchable skin but more prominent to L foot; are is clean and dry, left open to air. No pressure injury noted. Patient tolerated well. CLAUDIO Singer at bedside with student nurse groundwater consultant to change linen and reposition patient. RECOMMENDATION: Nursing to continue with BID/PRN cleaning and application Barrier cream to sacral, buttocks as preventative; Q3days/PRN dressing change to Lt wrist skin tear per MD order, Dietary consult for low Sathya score and wound, frequent turning and repositioning schedule as condition permits, redistribute pressure points with pillows,keep heels elevated on pillows, continue monitoring by wound care while patient is hospitalized. Addendum: 04/17/19 at 1845 by Nia Bañuelos RN Amended: Links added.
--- NOTE | 2019-04-17 20:07 | NUR ---
received inbe in no acute resp. distress and no blood oozing from right IJ site. Eufemia HERRERA in to see pt and put a suture to control bleeding
[2019-04-18] VITALS (102 sets, daily range): BP systolic 86–133; BP diastolic 50–89
[2019-04-18] MEDS: PIPERACILLIN-TAZOB 3.375GM 100 ML IV SCH ×5 (00:07→23:47)
[2019-04-18] MEDS: MIDAZOLAM DRIP 50 mg/50mL 50 ML IV SCH ×6 (02:06→19:58)
[2019-04-18 04:08] LABS: Basophils # (auto) 0.1 10 ^3/uL (0-0.2); Basophils % (auto) 0.9 % (0.0-2.0); Eosinophils # (auto) 0 10 ^3/uL (0-0.8); Eosinophils % (auto) 0.5 % (0.0-7.0); Hematocrit 45.6 % (41.0-53.0); Hemoglobin 15.1 g/dL (13.5-17.5); Lymphocytes # (auto) 0.4 10 ^3/uL (0.4-5.4); Lymphocytes % (auto) 6.8 % (10.0-50.0); Mean Corpuscular Hemoglobin 31.6 pg (28.0-32.0); Mean Corpuscular Volume 95.8 fL (80.0-100.0); Monocytes # (auto) 0.6 10 ^3/uL (0-1.3); Monocytes % (auto) 9.4 % (0.0-12.0); Neutrophils # (auto) 5.2 10 ^3/uL (1.6-8.6); Neutrophils % (auto) 82.4 % (37.0-80.0); Nucleated Red Blood Cells % 0.1 %; Platelet Count (auto) 117 10^3/uL (140-450); Red Blood Cells 4.76 10^6/uL (4.5-5.90); Red Cell Distribution Width 18.4 % (11.8-14.3); White Blood Cell 6.3 10^3/uL (4.4-10.8)
[2019-04-18 04:30] LABS: Potassium 3.1 mmol/L (3.5-5.1)
[2019-04-18] MEDS: VANCOMYCIN 1GM/250ML 250 ML IV SCH (04:33)
[2019-04-18 04:40] LABS: Albumin 2.7 g/dL (3.4-5.0); BUN/Creatinine Ratio 16.9; Bilirubin, Total 1.8 mg/dL (0.2-1.0); Calcium 8.5 mg/dL (8.5-10.1); Magnesium 2.4 mg/dL (1.6-2.6); Total Protein 6.3 g/dL (6.4-8.2)
--- NOTE | 2019-04-18 04:54 | NUR ---
Dr Foster was called for K that is3.1
--- NOTE | 2019-04-18 05:57 | NUR ---
Called Dr. Foster 2nd time forK3.1
[2019-04-18] MEDS ORDERED: POTASSIUM CHL 20MEQ/100ML 100 ML IV ONE (06:00)
[2019-04-18] MEDS: FUROSEMIDE 40 MG/4 ML VIAL IV SCH ×2 (06:08→18:06)
[2019-04-18] MEDS: PANTOPRAZOLE 40 MG/10 ML VIAL INJ IV SCH (10:21)
[2019-04-18] MEDS: ASPirin 81 mg TAB PO SCH (10:21)
--- NOTE | 2019-04-18 11:10 | NUR ---
FAMILY AT BEDSIDE UPDATED FAMILY ON POC, ADDRESSED THEIR QUESTIONS AND CONCERNS
--- NOTE | 2019-04-18 12:50 | NUR ---
FAMILY AT BEDSIDE UPDATED FAMILY ON POC, ADDRESSED 'S (ALONDRA) QUESTIONS AND CONCERNS
--- NOTE | 2019-04-18 13:30 | NUR ---
DR ELISE AT BEDSIDE SPOKE WITH FAMILY MEMBERS REGARDING POC AND ALL QUESTIONS AND CONCERNS ARE ADDRESSED.
--- NOTE | 2019-04-18 14:00 | NUR ---
NUTRITION ASSESSMENT NOTES Please refer to link notes of nutrition screen form filed under the intervention section of the plan of care for further details. Est. Energy Needs: 1181-1178 kcal (20-23 kcal/kg BW). Est. Protein Needs: 94-117 gms/day (1.2-1.5 gms/kg Adj.BW). Will continue to monitor pertinent labs and reassess nutrient need prn Addendum: 04/18/19 at [address] Amended: Links added.
--- NOTE | 2019-04-18 14:05 | NUR ---
PACEMAKER INTERROGATION RN AT BEDSIDE
--- NOTE | 2019-04-18 14:10 | NUR ---
DR BATEMAN AT BEDSIDE MD AT BEDSIDE
--- NOTE | 2019-04-18 14:16 | NUR ---
DR. BATEMAN AT BEDSIDE
--- NOTE | 2019-04-18 16:09 | NUR ---
ss consult Patient needs PCP. Per Carol Sandy patients PCP is Dr Suarez. Addendum: 04/18/19 at 1610 by Carol DUVALL Amended: Links added.
--- NOTE | 2019-04-18 16:10 | NUR ---
DR. RAPHAEL AT BEDSIDE MD PERFORMED THORACENTESIS, 2 LITER OF PLEURAL FLUID REMOVED AND SENT TO LAB.
--- NOTE | 2019-04-18 17:42 | NUR ---
DR. RAPHAEL AT BEDSIDE MD DISCUSSED POC WITH (ALONDRA)
--- NOTE | 2019-04-18 21:30 | NUR ---
received on versed drip and pt is only rsponsive by deep painful stimuli. Tachypneic but not in acute resp distress
[2019-04-18] MEDS: POTASSIUM CHL 10 Meq TABLET PO SCH (21:47)
[2019-04-18] MEDS: SACUBITRIL-VALSARTAN 24mg/26mg TAB PO SCH (21:47)
--- NOTE | 2019-04-18 22:24 | NUR ---
Very anxious this time and tachpneic, Bp is high 133/74. Encouraged to take adeep breath and dont talk . oral care give. ativan 1 mg Ivp given Addendum: 04/19/19 at 0138 by MARVIN ROSS RN RN ERROR DOCUMENTATION ABOVE NOTES INTENDED FOR ANOTHER PT
[2019-04-19] VITALS (103 sets, daily range): BP systolic 75–122; BP diastolic 40–73
[2019-04-19] MEDS ORDERED: ALBUMIN 5% 250 ML IV ONE ×2 (01:00→01:02)
[2019-04-19] MEDS: MIDAZOLAM DRIP 50 mg/50mL 50 ML IV SCH ×2 (01:06→04:48)
--- NOTE | 2019-04-19 01:38 | NUR ---
bp was 85/45 and recycled three times and systolic remains below 90. Dr. Foster was called about low BP and ordered albumin 250ml 5% at a bolus rate 1x only
[2019-04-19 03:56] LABS: Basophils # (auto) 0.1 10 ^3/uL (0-0.2); Basophils % (auto) 0.7 % (0.0-2.0); Eosinophils # (auto) 0 10 ^3/uL (0-0.8); Eosinophils % (auto) 0.1 % (0.0-7.0); Hematocrit 48.1 % (41.0-53.0); Lymphocytes # (auto) 0.5 10 ^3/uL (0.4-5.4); Lymphocytes % (auto) 5.7 % (10.0-50.0); Mean Corpuscular Hemoglobin 31.8 pg (28.0-32.0); Mean Corpuscular Hgb Conc. 33.3 g/dL (32.0-36.0); Mean Corpuscular Volume 95.3 fL (80.0-100.0); Monocytes # (auto) 1.1 10 ^3/uL (0-1.3); Monocytes % (auto) 11.8 % (0.0-12.0); Neutrophils # (auto) 7.3 10 ^3/uL (1.6-8.6); Neutrophils % (auto) 81.7 % (37.0-80.0); Nucleated Red Blood Cells % 0.1 %; Platelet Count (auto) 125 10^3/uL (140-450); Red Blood Cells 5.05 10^6/uL (4.5-5.90); Red Cell Distribution Width 18.3 % (11.8-14.3)
[2019-04-19 04:15] LABS: Calcium 8.8 mg/dL (8.5-10.1); Potassium 3.2 mmol/L (3.5-5.1)
[2019-04-19 04:17] LABS: BUN/Creatinine Ratio 16.1
[2019-04-19 04:22] LABS: Albumin 2.7 g/dL (3.4-5.0)
[2019-04-19 04:33] LABS: Bilirubin, Total 2.1 mg/dL (0.2-1.0); Total Protein 6.3 g/dL (6.4-8.2)
[2019-04-19 04:36] LABS: Bilirubin, Direct 1.1 mg/dL (0-0.2)
[2019-04-19] MEDS: VANCOMYCIN 1GM/250ML 250 ML IV SCH ×2 (04:44→04:58)
--- NOTE | 2019-04-19 05:03 | NUR ---
Dr. Foster was paged for K level of 3.1
[2019-04-19] MEDS ORDERED: POTASSIUM CHL 20MEQ/100ML 100 ML IV ONE ×2 (05:45→14:15)
[2019-04-19] MEDS: PIPERACILLIN-TAZOB 3.375GM 100 ML IV SCH ×3 (06:09→17:37)
[2019-04-19] MEDS: FUROSEMIDE 40 MG/4 ML VIAL IV SCH ×2 (06:16→17:37)
--- NOTE | 2019-04-19 07:45 | NUR ---
OPENING Report received from Vicki SNYDER. Care initiated and initial assessment completed.
[2019-04-19] MEDS: PANTOPRAZOLE 40 MG/10 ML VIAL INJ IV SCH (09:57)
[2019-04-19] MEDS: ASPirin 81 mg TAB PO SCH (09:57)
[2019-04-19] MEDS: POTASSIUM CHL 10 Meq TABLET PO SCH ×2 (09:58→22:00)
[2019-04-19] MEDS: SACUBITRIL-VALSARTAN 24mg/26mg TAB PO SCH ×2 (09:58→22:26)
--- NOTE | 2019-04-19 10:30 | NUR ---
CENTRAL LINE DRESSING CHANGE Central line dressing change done with sterile technique. Cleansed with chloraprep scrub. Biopatch applied. Occlusive dressing applied.
--- NOTE | 2019-04-19 11:00 | NUR ---
BEDSIDE Dr. Padgett bedside.
--- NOTE | 2019-04-19 12:00 | NUR ---
BEDSIDE Dr. Pendleton bedside.
[2019-04-19] MEDS ORDERED: AMIODARONE HCL 200 MG TAB PO ONE (14:00)
--- NOTE | 2019-04-19 19:16 | NUR ---
RECEIVED PATIENT LETHARGIC ND NO MOANING THIS TIME ON BIPAP16/6 ,BUR-12 and 70% of o2 Addendum: 04/19/19 at 2116 by MARVIN ROSS RN RN please take note of the above notes to be an error
[2019-04-19] MEDS ORDERED: AMIODARONE HCL 900 MG in DEXTROSE 500 ML IV SCH (20:21)
--- NOTE | 2019-04-19 21:16 | NUR ---
Dr. Pimentel was called thru the answering service to verify an ordwer made yessica
[2019-04-19] MEDS ORDERED: AMIODARONE HCL 200 MG TAB PO SCH (22:00)
--- NOTE | 2019-04-19 22:28 | NUR ---
potassium po ordwered cant be given crushed and pt has NGT, unable to swallow
[2019-04-20] VITALS (86 sets, daily range): BP systolic 71–109; BP diastolic 38–66
--- NOTE | 2019-04-20 04:12 | NUR ---
Condition unchanged, responding to pain
[2019-04-20 04:26] LABS: Basophils # (auto) 0 10 ^3/uL (0-0.2); Basophils % (auto) 0.3 % (0.0-2.0); Eosinophils # (auto) 0 10 ^3/uL (0-0.8); Eosinophils % (auto) 0.2 % (0.0-7.0); Hematocrit 51.9 % (41.0-53.0); Hemoglobin 17.4 g/dL (13.5-17.5); Lymphocytes # (auto) 0.5 10 ^3/uL (0.4-5.4); Lymphocytes % (auto) 5.6 % (10.0-50.0); Mean Corpuscular Hgb Conc. 33.5 g/dL (32.0-36.0); Mean Corpuscular Volume 95.6 fL (80.0-100.0); Monocytes # (auto) 1.1 10 ^3/uL (0-1.3); Neutrophils # (auto) 7.4 10 ^3/uL (1.6-8.6); Neutrophils % (auto) 81.9 % (37.0-80.0); Nucleated Red Blood Cells % 0.1 %; Platelet Count (auto) 120 10^3/uL (140-450); Red Blood Cells 5.43 10^6/uL (4.5-5.90); Red Cell Distribution Width 18.7 % (11.8-14.3); White Blood Cell 9.1 10^3/uL (4.4-10.8)
[2019-04-20] MEDS: VANCOMYCIN 1GM/250ML 250 ML IV SCH (04:43)
[2019-04-20 04:45] LABS: Albumin 2.3 g/dL (3.4-5.0); Calcium 8.4 mg/dL (8.5-10.1); Magnesium 2.4 mg/dL (1.6-2.6); Potassium 3.6 mmol/L (3.5-5.1)
[2019-04-20 04:52] LABS: BUN/Creatinine Ratio 16.1; Bilirubin, Direct 1.4 mg/dL (0-0.2); Bilirubin, Total 2.5 mg/dL (0.2-1.0); Total Protein 6.3 g/dL (6.4-8.2)
[2019-04-20] MEDS: FUROSEMIDE 40 MG/4 ML VIAL IV SCH ×2 (06:24→17:58)
[2019-04-20] MEDS: PIPERACILLIN-TAZOB 3.375GM 100 ML IV SCH ×4 (06:28→17:58)
--- NOTE | 2019-04-20 07:45 | NUR ---
OPENING Report received from Vicki SNYDER. Care initiated and initial assessment complete.
[2019-04-20] MEDS: ASPirin 81 mg TAB PO SCH (09:02)
[2019-04-20] MEDS: SACUBITRIL-VALSARTAN 24mg/26mg TAB PO SCH ×2 (09:03→21:54)
[2019-04-20] MEDS: SOTALOL HCL 80 MG TAB PO SCH (09:03)
[2019-04-20] MEDS: POTASSIUM CHL 10 Meq TABLET PO SCH ×2 (09:03→21:54)
[2019-04-20] MEDS: PANTOPRAZOLE 40 MG/10 ML VIAL INJ IV SCH (09:03)
[2019-04-20] MEDS: ENOXAPARIN SOD 40 MG/0.4 ML SYRINGE SC SCH (09:04)
--- NOTE | 2019-04-20 10:45 | NUR ---
BEDSIDE Dr. Padgett bedside assessing patient. No new orders received. MD aware patient is not alert for CPAP.
--- NOTE | 2019-04-20 11:00 | NUR ---
BEDSIDE Dr. Pendleton bedside. No new orders received. MD to consult neurology if patient is not alert for CPAP tomorrow 04/20.
--- NOTE | 2019-04-20 11:10 | NUR ---
FAMILY BEDSIDE Updated patients on patients status. Family verbalized understanding that patient is not awake and following commands and cannot attempt CPAP trial until then. CPAP trial and extubation explained thoroughly at this time.
--- NOTE | 2019-04-20 14:03 | NUR ---
BEDSIDE Dr. Garces bedside assessing patient. No new orders received. Updated MD on patients status.
--- NOTE | 2019-04-20 21:35 | NUR ---
BP went down to systolic bet 87 to 84 and HOB was positioned to flat but did not go up, so dr Schwartz was called and order iliter bolus of N. saline and given as bolus
[2019-04-20] MEDS ORDERED: SODIUM CHLORIDE 0.9% 1,000 ML IV ONE (21:45)
--- NOTE | 2019-04-20 21:54 | NUR ---
unable to give the potassium po because it cant be crushed and pt is NPO and with NGT
[2019-04-21] VITALS (92 sets, daily range): BP systolic 77–120; BP diastolic 45–73
[2019-04-21] MEDS: PIPERACILLIN-TAZOB 3.375GM 100 ML IV SCH ×5 (00:37→22:24)
[2019-04-21 04:09] LABS: Calcium 8.4 mg/dL (8.5-10.1); Magnesium 2.3 mg/dL (1.6-2.6); Potassium 3.3 mmol/L (3.5-5.1)
[2019-04-21 04:15] LABS: Bilirubin, Total 2.4 mg/dL (0.2-1.0)
[2019-04-21] MEDS: VANCOMYCIN 1GM/250ML 250 ML IV SCH (04:37)
[2019-04-21] MEDS ORDERED: POTASSIUM CHL 20MEQ/100ML 100 ML IV ONE ×2 (04:45→10:30)
[2019-04-21] MEDS: FUROSEMIDE 40 MG/4 ML VIAL IV SCH ×2 (05:55→18:18)
--- NOTE | 2019-04-21 06:48 | NUR ---
PT HAD A RUN OF VTACH JUST FEW MINS, AGO BUT ASYMPTOMATIC APPROXIMATELT 8 BEATS
--- NOTE | 2019-04-21 07:12 | NUR ---
Respiratory note: RECEIVED PATIENT ON V14 ESPRIT VENT ORALLY INTUBATED WITH AN 8.0 ETT SECURED VIA CHERY AT THE 24CM MARKING AT THE LIP, AND MECHANICALLY VENTILATED WITH THE CHARTED SETTINGS. SPO2 100%, LUNG SOUNDS CLEAR/DIM T/O, NO SECRETIONS WHEN SUCTIONED. SKIN IS WARM/DRY TO THE TOUCH AND IS INTACT NEAR CHERY SITE. THERE IS A NGT IN THE RIGHT NARE AND SECURED TO THE ETT, A TRIPLE LUMEN CENTRAL LINE IS PLACED IN THE RIGHT IJ. NO EDEMA NOTED IN UPPER/LOWER EXTREMITIES. NO NEW CXR TO ASSESS. PATIENT IS UNRESPONSIVE TO BOTH VERBAL/TACTILE STIMULI AND IS OFF ALL SEDATION. HE IS RESTING COMFORTABLY AND TOLERATING VENT WELL, NO CHANGES MADE. VENT PLUGGED INTO RED OUTLET AND ALL ALARMS ARE SET AND AUDIBLE. WILL CONTINUE TO ASSESS PATIENT WELL VENTILATOR FUNCTION.
--- NOTE | 2019-04-21 09:05 | NUR ---
PAGED HOSPITALIST (DR GRANDA) RELATED TO LOW BP MD ORDERED LEVOPHED (SEE ORDERS)
[2019-04-21] MEDS: NOREPINEPHRINE 8 MG/250ML KIT 250 ML IV SCH (09:07)
[2019-04-21] MEDS ORDERED: NOREPINEPHRINE 8 MG/250ML KIT 250 ML IV ONE (09:10)
[2019-04-21] MEDS: POTASSIUM CHL 10 Meq TABLET PO SCH ×2 (10:00→20:13)
[2019-04-21] MEDS: SOTALOL HCL 80 MG TAB PO SCH (10:00)
[2019-04-21] MEDS: SACUBITRIL-VALSARTAN 24mg/26mg TAB PO SCH ×2 (10:00→21:19)
--- NOTE | 2019-04-21 10:25 | NUR ---
DR WADE AT BEDSIDE RECEIVED NEW ORDERS.
[2019-04-21] MEDS ORDERED: DOXYCYCLINE 100MG/250ML 250 ML IV SCH (10:30)
[2019-04-21] MEDS: ENOXAPARIN SOD 40 MG/0.4 ML SYRINGE SC SCH (10:32)
[2019-04-21] MEDS: PANTOPRAZOLE 40 MG/10 ML VIAL INJ IV SCH (10:32)
[2019-04-21] MEDS: ASPirin 81 mg TAB PO SCH (10:32)
[2019-04-21] MEDS ORDERED: POTASSIUM EFFERVESENT TAB 25 MEQ GT ONE ×2 (10:45→13:00)
--- NOTE | 2019-04-21 11:20 | NUR ---
FAMILY AT BEDSIDE (ALONDRA) UPDATED ON POC, QUESTIONS AND CONCERNS ADDRESSED
--- NOTE | 2019-04-21 12:00 | NUR ---
EKG OBTAINED FREQUENT PVC NOTED Addendum: 04/21/19 at 1504 by KAIDEN GALLOWAY RN RN PVC'S NOTED AFTER REPOSITIONING PT
--- NOTE | 2019-04-21 13:05 | NUR ---
DR RAPHAEL AT BEDSIDE
--- NOTE | 2019-04-21 13:18 | NUR ---
LARGE BOWEL MOVEMENT BROWN, SOFT. FULL LINEN AND GOWN CHANGED AT THIS TIME.
--- NOTE | 2019-04-21 13:25 | NUR ---
WOUND PHOTOS TAKEN TO LEFT HIP
[2019-04-21] MEDS ORDERED: VANCOMYCIN PER PHARMACY 0 MG IV SCH (16:15)
[2019-04-21] MEDS: MIDAZOLAM HCL 1MG/1ML-2 ML VIAL IV PRN (22:47)
[2019-04-22] VITALS (87 sets, daily range): BP systolic 86–126; BP diastolic 52–82
[2019-04-22 04:11] LABS: Basophils # (auto) 0.1 10 ^3/uL (0-0.2); Basophils % (auto) 0.9 % (0.0-2.0); Eosinophils # (auto) 0.1 10 ^3/uL (0-0.8); Hematocrit 47.3 % (41.0-53.0); Hemoglobin 15.7 g/dL (13.5-17.5); Lymphocytes # (auto) 0.5 10 ^3/uL (0.4-5.4); Lymphocytes % (auto) 7.7 % (10.0-50.0); Mean Corpuscular Hemoglobin 31.6 pg (28.0-32.0); Mean Corpuscular Hgb Conc. 33.3 g/dL (32.0-36.0); Monocytes # (auto) 0.8 10 ^3/uL (0-1.3); Monocytes % (auto) 12.6 % (0.0-12.0); Neutrophils % (auto) 76.8 % (37.0-80.0); Nucleated Red Blood Cells % 0.1 %; Platelet Count (auto) 153 10^3/uL (140-450); Red Blood Cells 4.98 10^6/uL (4.5-5.90); Red Cell Distribution Width 17.8 % (11.8-14.3); White Blood Cell 6.6 10^3/uL (4.4-10.8)
[2019-04-22 04:33] LABS: Potassium 3.6 mmol/L (3.5-5.1)
[2019-04-22 04:39] LABS: BUN/Creatinine Ratio 18.7; Calcium 8.8 mg/dL (8.5-10.1)
[2019-04-22] MEDS: VANCOMYCIN 1GM/250ML 250 ML IV SCH (04:49)
[2019-04-22] MEDS: FUROSEMIDE 40 MG/4 ML VIAL IV SCH ×2 (04:49→17:53)
[2019-04-22] MEDS: PIPERACILLIN-TAZOB 3.375GM 100 ML IV SCH ×3 (04:50→17:52)
--- NOTE | 2019-04-22 07:40 | NUR ---
PATIENT PLACED ON CPAP MODE
--- NOTE | 2019-04-22 07:50 | NUR ---
Respiratory note: CPAP TRIAL TERMINATED DUE TO APNEA. RN AWARE OF CPAP TERMINATION.
[2019-04-22] MEDS: MIDAZOLAM HCL 1MG/1ML-2 ML VIAL IV PRN (08:23)
--- NOTE | 2019-04-22 09:01 | NUR ---
PATIENT ON NO SEDATION AT THIS TIME Addendum: 04/22/19 at 0901 by Enmanuel Conde RN Amended: Links added.
[2019-04-22] MEDS: NOREPINEPHRINE 8 MG/250ML KIT 250 ML IV SCH (09:07)
[2019-04-22] MEDS: ENOXAPARIN SOD 40 MG/0.4 ML SYRINGE SC SCH (09:27)
[2019-04-22] MEDS: PANTOPRAZOLE 40 MG/10 ML VIAL INJ IV SCH (09:27)
[2019-04-22] MEDS: POTASSIUM CHL 10 Meq TABLET PO SCH (09:28)
[2019-04-22] MEDS: SACUBITRIL-VALSARTAN 24mg/26mg TAB PO SCH (09:28)
[2019-04-22] MEDS: ASPirin 81 mg TAB PO SCH (09:28)
[2019-04-22] MEDS: SOTALOL HCL 80 MG TAB PO SCH (09:28)
--- NOTE | 2019-04-22 11:30 | NUR ---
Respiratory note: ABG RESULTS AND CPAP TRIAL PARAMETERS REPORTED TO DR RAPHAEL VIA TELEPHONE: RSBI 59 LEAK 300 VC 1205 NIF 19.2 AWAITING ORDERS. CLAUDIO EARL MADE AWARE.
--- NOTE | 2019-04-22 12:09 | NUR ---
PATIENT EXTUBATED PLACED ON COOL MIST MASK. NO STRIDOR OR DISTRESS NOTED AT THIS TIME
--- NOTE | 2019-04-22 12:09 | NUR ---
Respiratory note: EXTUBATED AND PLACED ON 35% COOL MIST AEROSOL PER DR DICKENS ORDER. NO STRIDOR NOTED AT THIS TIME. FAMILY AT BEDSIDE. RN MADY AWARE OF CHANGES. HR 73, 98%, RR 12.
[2019-04-22] MEDS ORDERED: POTASSIUM EFFERVESENT TAB 25 MEQ GT ONE (12:30)
--- NOTE | 2019-04-22 13:39 | NUR ---
FAMILY AND DAUGHTER AT BEDSIDE. UPDATED ON PATIENT STATUS. ALL QUESTIONS AND CONCERNS ADDRESSED
--- NOTE | 2019-04-22 15:27 | NUR ---
Nutrition Follow-up Notes Wt.: 78.7 kg today Pt's in isolation room, intubated. Currently no diet order. RN reported plan for pt to be extubated. Est. Energy Needs: 2354-8974 kcal (20-23 kcal/kg BW). Est. Protein Needs: 94-117 gms/day (1.2-1.5 gms/kg Adj.BW). Will continue to monitor pertinent labs and reassess nutrient needs prn Labs 04/21: BUN 29 H, Cr 1.55 H, serum glucose 114 H 04/20: Ca 8.4 L 04/19: TP 6.3 L, albumin 2.3 L Skin: Sathya scale 14, mod risk, skin tears to L wrist and L hip per customs investigator. GI: Pt had BM 04/21/19 per customs investigator. PES: 1) Altered nutrition related lab values r/t current medical condition aeb elevated RFTs, hypokalemia, hypoproteinemia 2) Inadequate energy intake r/t current energy and protein needs aeb NPO, intubated status Will continue to monitor NPO status, skin status, pertinent labs and weight trend. F/u in 2 to 3 days. Recommendations: 1) If still NPO for 48 hours and if potassium levels normalize, consider EN support with Jevity 1.2 @60ml/hr as tolerated when medically appropriate. 2) If Albumin continues trending down, consider Prostat 1 pkt BID. 3) Advance gradually to oral diet when medically appropriate. 4) Continue current plan of care.
[2019-04-22] MEDS: ACCU-CHEK COMFORT CURVE STRIP VI SCH ×3 (16:05→22:00)
--- NOTE | 2019-04-22 16:35 | NUR ---
PARTIAL LINEN CHANGE PERFORMED
--- NOTE | 2019-04-22 17:15 | NUR ---
LARGE BOWEL MOVEMENT PATIENT CLEANSED AND LINEN CHANGE PERFORMED AT THIS TIME
[2019-04-22] MEDS ORDERED: LORazepam 2MG/ML-1ML VIAL ONE (20:42)
[2019-04-22] MEDS ORDERED: LORazepam 2MG/ML-1ML VIAL IV ONE (20:45)
[2019-04-23] VITALS (29 sets, daily range): BP systolic 93–123; BP diastolic 55–83
[2019-04-23] MEDS: PIPERACILLIN-TAZOB 3.375GM 100 ML IV SCH ×3 (00:39→11:29)
[2019-04-23] MEDS: ACCU-CHEK COMFORT CURVE STRIP VI SCH ×6 (02:01→22:01)
[2019-04-23] MEDS: VANCOMYCIN 1GM/250ML 250 ML IV SCH (04:59)
[2019-04-23] MEDS: FUROSEMIDE 40 MG/4 ML VIAL IV SCH ×2 (05:35→18:04)
[2019-04-23 06:13] LABS: Calcium 8.9 mg/dL (8.5-10.1); Potassium 3.5 mmol/L (3.5-5.1)
[2019-04-23 06:14] LABS: BUN/Creatinine Ratio 16.8
--- NOTE | 2019-04-23 08:48 | NUR ---
Family updated on pt status Family of CHERIE KATE updated on patient's status and condition. All questions and concerns addressed. Kerri verbalized understanding. Family aware of strict precautions due to COVID-19. Family verbalized understanding.
[2019-04-23] MEDS: NOREPINEPHRINE 8 MG/250ML KIT 250 ML IV SCH (09:07)
[2019-04-23] MEDS: ASPirin 81 mg TAB PO SCH (11:17)
[2019-04-23] MEDS: PANTOPRAZOLE 40 MG/10 ML VIAL INJ IV SCH (11:17)
[2019-04-23] MEDS: ENOXAPARIN SOD 40 MG/0.4 ML SYRINGE SC SCH (11:18)
--- NOTE | 2019-04-23 11:33 | NUR ---
MD AT BEDSIDE DR. CARLTON UPDATED ON PATIENTS STATUS. MD AWARE OF CURRENT BP 113/65 WITH BETAPACE ORDERED. MD AWARE LAST EPISODE OF V TACK NOTED PER NURSES NOTES. DR. ELISE TO BE PAGED TO VERIFY DOSE AND ADMINISTRATION. PATIENT TO BE TRANSFERRED TO [facility] FOR OBSERVATION OF VTACK.
--- NOTE | 2019-04-23 11:38 | NUR ---
PO MEDICATIONS PATIENT TOLERATING PO MEDS CRUSHED WITH APPLESAUCE. PT TOLERATED WELL. NO S/S OF ASPIRATION.
[2019-04-23] MEDS ORDERED: DOXYCYCLINE 100 MG TAB/CAP PO ONE (12:00)
--- NOTE | 2019-04-23 12:15 | NUR ---
DR. ELISE CALLED BACK STATING IT IS OK TO CONTINUE WITH PO SOTOLOL 40MG IS A LOW DOSE. MD AWARE CURRENT BP 115/73, HR 78.
[2019-04-23] MEDS: SOTALOL HCL 80 MG TAB PO SCH (13:08)
--- NOTE | 2019-04-23 13:35 | NUR ---
LUNCH TOLERATED PATIENT TOLERATED 100% OF FULL LIQUID DIET WITHOUT ANY DIFFICULTY. DIET TO BE ADVANCED TO PUREED. NO DENTURES IN PLACE.
--- NOTE | 2019-04-23 14:27 | NUR ---
Attempted PT eval but pt refused. Pt was very lethargic and confused. Pt was reoriented at RN notified. Will attempt again tomorrow.
--- NOTE | 2019-04-23 15:00 | NUR ---
ELIMINATION PATIENT HAD A MODERATE, BROWN, LOOSE/SOFT BM. SKIN CLEANSED. ZGAURD WITH OPTIFOAM PLACED.
--- NOTE | 2019-04-23 17:01 | NUR ---
ELIMINATION PATIENT INCONTINENT OF STOOL. PATIENT VERBALIZED URGE TO USE RESTROOM TO HAVE A BOWEL MOVEMENT BUT ALREADY HAD A SMALL, BROWN, SOFT/LOOSE BM ON PERIPAD. SKIN CLEANSED AND SET ON BEDPAN. ONCE SET ON BEDPAN NO FURTHER BOWEL NOTED. SACRUM REMAINS ASYMPTOMATIC. OPTIFOAM REMAINS.
--- NOTE | 2019-04-23 18:00 | NUR ---
NUTRITION PATIENT REFUSING TO EAT DINNER, STATING HE IS FULL FROM LUNCH. MEAL HELD AT THIS TIME.
--- NOTE | 2019-04-23 18:21 | NUR ---
MARSHA BERMUDEZ, CHANGED 04/21. Addendum: 04/23/19 at 1821 by Elizabeth Aquino RN Amended: Links added.
--- NOTE | 2019-04-23 18:35 | NUR ---
RESTLESSNESS PATIENT BECOMING RESTLESS REQUESTING TO GO HOME AND ASKING FOR DIRECTIONS. FREQUENT REORIENTATION PROVIDED. COMFORT MEASURES GIVEN. ALL LINES HIDDEN, BED ALARM ON, CALL LIGHT AT REACH. ASPIRATION PRECAUTIONS IN PLACE.
[2019-04-23] MEDS: LORazepam 2MG/ML-1ML VIAL IV PRN (19:21)
[2019-04-23] MEDS: POTASSIUM CHL 10 Meq TABLET PO SCH (22:00)
[2019-04-23] MEDS: DOXYCYCLINE 100 MG TAB/CAP PO SCH (22:01)
--- NOTE | 2019-04-23 22:50 | NUR ---
ICU patient trans to [facility] Patient's report was given to Sudarshan SNYDER. BIPIN RAPHAEL transferred to 262 via bed on hall monitor and portable 02 by Jina SNYDER. All patient personal belongings transferred with patient to receiving floor. Patient care transferred to Sudarshan SNYDER.
--- NOTE | 2019-04-23 22:55 | NUR ---
PT IN [facility] PT APPEARS TO BE RESTING. CONNECTED TO MONITOR. NO S/S OF RESPIRATORY DISTRESS. CALL LIGHT IS WITHIN REACH AND BED LOCKED IN PLACE. PT ORIENTED TO CLAUDIO ALDRIDGE AND ALL QUESTIONS ANSWERED.
[2019-04-24] VITALS: BP 96/63
[2019-04-24] MEDS: ACCU-CHEK COMFORT CURVE STRIP VI SCH ×6 (02:00→22:18)
--- NOTE | 2019-04-24 02:00 | NUR ---
PT APPEARS TO BE RESTING NO DISTRESS NOTED. VSS.
[2019-04-24 04:00] VITALS: BP 125/62
[2019-04-24] MEDS: FUROSEMIDE 40 MG/4 ML VIAL IV SCH ×2 (05:23→18:36)
[2019-04-24 06:06] LABS: Potassium 3.5 mmol/L (3.5-5.1)
[2019-04-24 06:29] LABS: Albumin 2.3 g/dL (3.4-5.0); Bilirubin, Total 1.9 mg/dL (0.2-1.0); Magnesium 2.3 mg/dL (1.6-2.6); Total Protein 6.4 g/dL (6.4-8.2)
[2019-04-24 06:39] LABS: BUN/Creatinine Ratio 17.1
[2019-04-24 07:50] VITALS: BP 117/73
--- NOTE | 2019-04-24 08:00 | NUR ---
Opening Shift Note Assumed care of patient, awake, follows simple commands, oriented to self only, re-orientation done. No S/S of distress/SOB or pain. Patient on 2 LPM oxygen via nasal cannula, saturation 100%. See interventions for complete assessment. Bed locked on low position, side rails up x2, bed alarms on at all times, call rosales within reach, instructed on POC and to call for assist PRN, will continue to monitor for changes Q1hr and PRN.
[2019-04-24] MEDS: ASPirin 81 mg TAB PO SCH (10:45)
[2019-04-24] MEDS: DOXYCYCLINE 100 MG TAB/CAP PO SCH ×2 (10:45→22:18)
--- NOTE | 2019-04-24 10:45 | NUR ---
Dr Pendleton at bedside, updated on patient's status. Patient seen and examined. Will carry out new orders.
[2019-04-24] MEDS: SOTALOL HCL 80 MG TAB PO SCH (10:46)
[2019-04-24] MEDS: ENOXAPARIN SOD 40 MG/0.4 ML SYRINGE SC SCH (10:47)
[2019-04-24] MEDS: PANTOPRAZOLE 40 MG/10 ML VIAL INJ IV SCH (10:47)
[2019-04-24] MEDS: POTASSIUM CHL 10 Meq TABLET PO SCH ×2 (10:47→22:17)
[2019-04-24 11:54] VITALS: BP 113/66
--- NOTE | 2019-04-24 13:58 | NUR ---
Patient out of bed with Vicki PT, fall precautions in place. Patient max assist standing at side of bed.
--- NOTE | 2019-04-24 14:40 | NUR ---
Script Supervisor consult regarding resuming Home Health. Pt was previously on Service with Sharon Christie and will be resuming with this service upon discharge. Sharon Christie contacted and information faxed to [facility]. Information received and services to resume upon discharge. Will notify covering nurse and MIGUEL II of the above.
--- NOTE | 2019-04-24 15:46 | NUR ---
assessment Patient is a 74 year old male who is confused. Per Kerri campa this is new confusion. Per Kerri prior to admission patient lived home with her and was independent. Patient does have a wheelchair, fww, and a cane at home if he needs it. Per Kerri campa PCP is Dr Lorenz. Per Kerri patient is on service with [facility]. Kerri informed me patient will not go to rehab on discharge. Per Kerri patient will return home with her on discharge and resume Tyfone PratikAndre Phillipe. Patient will nee a resumption order on discharge. Kerri verbalized understanding and agreed to discharge plan home. Addendum: 04/24/19 at 1550 by Carol DUVALL Amended: Links added.
[2019-04-24 15:51] VITALS: BP 107/76
--- NOTE | 2019-04-24 16:40 | NUR ---
assembler fluorescent lights Nia at bedside for follow - up, wound photograph of LT buttocks taken for reference. Z-guard applied and covered with optifoam dressing.
--- NOTE | 2019-04-24 16:52 | NUR ---
WOUND CARE NOTE: Wound care into see patient for reevaluation of wound that are noted present on admission. Patient has been extubated and now in SDU Rm. 262. Patient is awake, alert and able to verbalize needs. Patient is in no stated pain at this time and he appears to be in no pain using [place] Wolf Faces Pain Scale. He's able to assist in turning and repositioning and his Sathya score is 14. Skin assessment done with the assistance of patient's nurse, CLAUDIO Pa. Patient's L wrist continue to display open partial thickness skin tear. Wound measuring 1.8x1.2cm, look improving and smaller. Skin tear is red with purple ecchymotic periwound, no drainage or odor noted. Cleansed patient's L wrist skin tears with NS,patted dry with gauze, applied Thera honey gauze and covered with Opti foam gentle dressing. Patient developed 0.7x1cm open partial thickness skin tear to L lower buttock. Skin tear is red with pink austin wound. Bedside nurse reported that she's suspecting that patient must have scratched it during episode of confusion. Patient now has mittens for safety. Cleansed skin tear with mild soap and water,patted dry, applied Z Guard cream and covered with Opti foam gentle dressing. Patient tolerated well, repositioned for comfort facing his Lt side,redistributed pressure points with pillows. New photograph of wounds are taken for reference. RECOMMENDATION: Continuation of all wound care orders prescribed by MD,continue with skin/wound plan of care, continue monitoring by wound care while patient is hospitalized. Addendum: 04/24/19 at 1856 by Nia Bañuelos RN Amended: Links added.
--- NOTE | 2019-04-24 17:20 | NUR ---
Dr Padgett at bedside, updated on patient's status. Patient seen and examined. Will carry out new orders.
[2019-04-24] MEDS ORDERED: FUROSEMIDE 40 MG/4 ML VIAL IV SCH (18:00)
[2019-04-24 20:00] VITALS: BP 107/60
--- NOTE | 2019-04-24 21:30 | NUR ---
PT REMOVED CENTRAL LINE CHARGE NURSE WITH PT AND APPLIED PRESSURE. CATHETER INTACT. NO HEMATOMA. WILL CONTINUE TO MONITOR. PT MITTENS IN PLACE FOR SAFETY.
[2019-04-24] MEDS: LORazepam 2MG/ML-1ML VIAL IV PRN (21:39)
[2019-04-25] VITALS (7 sets, daily range): BP systolic 95–112; BP diastolic 45–74
[2019-04-25] MEDS: ACCU-CHEK COMFORT CURVE STRIP VI SCH ×3 (02:00→10:17)
--- NOTE | 2019-04-25 03:33 | NUR ---
PT APPEARS TO BE RESTING BREATHING EVEN AND UNLABORED. NO S/S OF RESPIRATORY DISTRESS.
--- NOTE | 2019-04-25 04:54 | NUR ---
BED BATH/FULL LINEN CHANGE NEW LEADS AND GOWN ON PT.NO DISTRESS NOTED AND PT WENT BACK TO SLEEP.
[2019-04-25] MEDS: FUROSEMIDE 40 MG/4 ML VIAL IV SCH (06:12)
--- NOTE | 2019-04-25 06:20 | NUR ---
MORNING LABS STILL PENDING THIS MORNING.
--- NOTE | 2019-04-25 07:26 | NUR ---
ENDORSED CARE TO DAY RN PT RESTING. NO S/S OF RESPIRATORY DISTRESS.
[2019-04-25 07:50] LABS: BUN/Creatinine Ratio 16.3; Bilirubin, Total 1.7 mg/dL (0.2-1.0); Potassium 3.5 mmol/L (3.5-5.1)
--- NOTE | 2019-04-25 07:50 | NUR ---
OPENING SHIFT NOTE: Received report from NOC RNSudarshan. Assumed care of patient. Received patient lying in bed, no S/S of distress noted. Patient is A&Ox2 and denies pain. Patient found with mittens off and patient was cooperative when replaced. Patient on bedside monitor with alarms in place. Patient on 2L NC with O2 sats at 100%. Patient with alves catheter draining red-tinged urine due to pulling at catheter previous shift. Bed in lowest position, rails x3 up and call light within reach. Updated on plan of care. Will continue to monitor q1hr/PRN.
--- NOTE | 2019-04-25 09:10 | NUR ---
Dr Grayson paged for possible downgrade to tele.
--- NOTE | 2019-04-25 09:24 | NUR ---
Patient pulled out IV to left wrist after pulling off mittens. Catheter found intact. Pressure dressing applied. Reapplied mittens to patient.
[2019-04-25] MEDS: SOTALOL HCL 80 MG TAB PO SCH (10:00)
[2019-04-25] MEDS: ENOXAPARIN SOD 40 MG/0.4 ML SYRINGE SC SCH (10:06)
[2019-04-25] MEDS: PANTOPRAZOLE 40 MG TAB PO SCH (10:06)
[2019-04-25] MEDS: DOXYCYCLINE 100 MG TAB/CAP PO SCH ×2 (10:06→22:35)
[2019-04-25] MEDS: ASPirin 81 mg TAB PO SCH (10:08)
[2019-04-25] MEDS: POTASSIUM CHL 10 Meq TABLET PO SCH ×2 (10:08→22:40)
--- NOTE | 2019-04-25 10:18 | NUR ---
Medicated patient with 1000 medications. Verified patient and five rights. Patient explained rationale and side effects for each medication and verbalized understanding. Patient tolerated medications without any difficulty.
--- NOTE | 2019-04-25 10:47 | NUR ---
Dr Pendleton to see patient. Orders received.
--- NOTE | 2019-04-25 11:19 | NUR ---
Physical therapy at bedside working with patient.
--- NOTE | 2019-04-25 12:00 | NUR ---
PIV started in right forearm #22.
--- NOTE | 2019-04-25 12:09 | NUR ---
Report given to CLAUDIO Martin. Patient to be transferred to 245A.
--- NOTE | 2019-04-25 12:13 | NUR ---
Called patient's Kerri COUGHLIN and informed her of patient's transfer to new room and nurse's station phone number.
[2019-04-25] MEDS ORDERED: LACTULOSE 20Gm/30ML SOLN PO ONE (12:15)
--- NOTE | 2019-04-25 12:30 | NUR ---
PT ARRIVED FROM [facility]IA [facility]PITAL BED, SLEEPING, NO DISTRESS NOTED, NO SHORTAGE OF BREATH NOTED, HAND MITTENS ON BOTH HANDS, PATEL CATHETER TO GRAVITY, HEMATURIA NOTED,LARGE SOFT ABDOMEN NOTED, TOTAL DEPENDANT ON HIS CARE, NEXT TO NURSING STATION, SITTER AT BED SIDE
--- NOTE | 2019-04-25 13:30 | NUR ---
PT IS AWAKE, ASSISTED TO EAT LUNCH
--- NOTE | 2019-04-25 16:00 | NUR ---
BED BATH GIVEN TO PT BY HIS AIDE, TOLERATED WELL, CLEAN GOWN APPLIED
--- NOTE | 2019-04-25 17:50 | NUR ---
IV insertion IV access obtained, via clean sterile technique by inserting 22 gauge catheter at after attempt(s). IV secured properly. No trauma to site. Patient tolerated procedure well.
[2019-04-25] MEDS: FUROSEMIDE 100 MG/10ML VIAL IV SCH (18:19)
[2019-04-25] MEDS: LACTULOSE 20Gm/30ML SOLN PO SCH (18:19)
--- NOTE | 2019-04-25 18:30 | NUR ---
DINNER PT REFUSED
--- NOTE | 2019-04-25 18:46 | NUR ---
PT CONTINEU STABLE Addendum: 04/25/19 at 1847 by Veronica Pennington RN JC NOTE
--- NOTE | 2019-04-25 18:47 | NUR ---
PT CONTINUE STABLE, HEMATURIA CONTINUE NOTED LIGHT SU TO DARK, VITAL SIGNS STABLE, PATEL CATHETER CONTINUE SECURED WITH PATEL CATHETER VAZQUEZ, HANDS MITTENS ON PT HANDS AT ALL TIMES
--- NOTE | 2019-04-25 19:29 | NUR ---
Opening Shift Note Received report and assumed care of patient. Patient is awake and alert. No signs or symptoms of distress noted. Instructed patient on plan of care and to call for assistance as needed. Sitter at bedside. Will continue to monitor.
[2019-04-26] MEDS: LACTULOSE 20Gm/30ML SOLN PO SCH ×3 (00:17→11:28)
--- NOTE | 2019-04-26 02:47 | NUR ---
Paged Hospitalist Paged Hospitalist regarding blood in urine. New orders received for Hemoglobin and Hematocrit lab draw. Order read back and verified. Will carry out and continue to monitor.
[2019-04-26 06:00] VITALS: BP 124/78
[2019-04-26] MEDS: FUROSEMIDE 100 MG/10ML VIAL IV SCH (06:14)
[2019-04-26 06:47] LABS: Hematocrit 43.8 % (41.0-53.0); Hemoglobin 14.9 g/dL (13.5-17.5)
[2019-04-26 07:07] LABS: Magnesium 2.5 mg/dL (1.6-2.6); Potassium 4.2 mmol/L (3.5-5.1)
--- NOTE | 2019-04-26 07:50 | NUR ---
Opening Note Assumed care of patient, he is A & O x1, to self, with confusion. Patient answers questions appropriately at times, and inappropriately at other times. POC discussed with patient, bed is in lowest, locked position, call light within reach, bed alarm on. Sitter at bedside, as patient has been reported to attempted to get out of bed and pull at alves catheter, which is now tinged pink with urinary output. Patient has mittens on for safety at this time. Will continue to monitor Q1h and PRN.
[2019-04-26 08:04] LABS: Folate (Folic Acid) > 24.00 ng/mL (5.38-24)
[2019-04-26] MEDS ORDERED: HALOPERIDOL LACTATE 5 MG/ML INJ VIAL IM PRN (08:45)
[2019-04-26 09:00] VITALS: BP 101/59
--- NOTE | 2019-04-26 10:24 | NUR ---
Dr. Pendleton at bedside. Orders received, read back and verified. Will remove alves catheter , assess patient O2 level on room air, re-assess blood pressure prior to medication administration.
--- NOTE | 2019-04-26 10:30 | NUR ---
Physical therapy at bedside.
[2019-04-26] MEDS: ASPirin 81 mg TAB PO SCH (11:26)
[2019-04-26] MEDS: POTASSIUM CHL 10 Meq TABLET PO SCH (11:26)
[2019-04-26] MEDS: DOXYCYCLINE 100 MG TAB/CAP PO SCH (11:27)
[2019-04-26] MEDS: SOTALOL HCL 80 MG TAB PO SCH (11:27)
[2019-04-26] MEDS: PANTOPRAZOLE 40 MG TAB PO SCH (11:27)
[2019-04-26] MEDS: ENOXAPARIN SOD 40 MG/0.4 ML SYRINGE SC SCH (11:27)
[2019-04-26] MEDS ORDERED: DOXY-286 PO (11:52)
[2019-04-26] MEDS ORDERED: PANT40T PO (11:52)
[2019-04-26] MEDS ORDERED: SOTA80TA20 PO (11:52)
[2019-04-26] MEDS ORDERED: LACTULOSE 20Gm/30ML SOLN PO PRN (12:00)
--- NOTE | 2019-04-26 12:00 | NUR ---
Alves Catheter Removed and Oxygen assessed. Patient tolerated removal of alves catheter well, 750 ml of pink tinged output at this time. Will monitor urine output. Patient is 96% on room air oxygen, patient tolerating well. Dr. Pendleton notified, patient will be discharged to SNF, will call family to reevaluate their wishes, as the chart indicates home health has been set up.
[2019-04-26] MEDS ORDERED: FURO1TAB31 PO (12:03)
--- NOTE | 2019-04-26 12:15 | NUR ---
Patient cooperative at this time, urinated s/p catheter removal. Patient incontinent of bowel and bladder at this time. Will continue to monitor.
--- NOTE | 2019-04-26 12:15 | NUR ---
Spoke to Kerri on telephone She informed this RN that she wants patient to come home only if he can get up on his own, she needs him to be able to stand up and go the bathroom, she has a cane herself. This RN informed her that the patient was unable to walk with physical therapy this morning, patient is able to stand with minimum assistance with walker, but not coordinated enough to walk. Kerri informed this RN that she doesn't want him going to "any of those places on [address] This RN tried to clarify that the patient will be getting discharged today, it is important that we know if she is able to help the patient independently or if we are sending him to a custodial facility Rehab. She informed me that she will call [facility] "where he went last time" and give me a call back. Will await family phone call and page Dr. Pendleton regarding this information.
--- NOTE | 2019-04-26 12:30 | NUR ---
Paged Dr. Pendleton regarding family wishes upon discharge.
[2019-04-26] MEDS ORDERED: SACU1TAB PO (12:38)
[2019-04-26] MEDS ORDERED: DABI75CA5 PO (12:38)
[2019-04-26 13:00] VITALS: BP 109/63
--- NOTE | 2019-04-26 14:45 | NUR ---
re-assessment Per consult SNF placement. Per patients Kerri she is requesting [facility]. order has been sent to [facility]. Waiting customer acquisition manager back now. Addendum: 04/26/19 at 1448 by Carol Lorenz Amended: Links added.
--- NOTE | 2019-04-26 15:59 | NUR ---
re-assessment Per Charline at [facility] she has accepted patient to [facility]. Per Charline patient will be admitted to room 3A and Dr Dawkins is the accepting MD. Naheed will transport at 715pm tonight post discharge. Kerri rivera has been notified as well as Zandra SNYDER. Addendum: 04/26/19 at 1603 by Carol DUVALL Amended: Links added.
--- NOTE | 2019-04-26 16:05 | NUR ---
Paged Dr. Hunter to obtain clearance by neurology s/p EEG
--- NOTE | 2019-04-26 16:12 | NUR ---
EEG- unable to complete electroencephalogram due to artifacts. will attempt again tomorrow morning 04/27/2019.
--- NOTE | 2019-04-26 16:30 | NUR ---
Notes per Dr. Hunter, Patient to follow with Neuro upon discharge.
[2019-04-26 16:33] VITALS: BP 111/66
[2019-04-26 17:00] VITALS: BP 126/69
--- NOTE | 2019-04-26 17:00 | NUR ---
Kerri, notified of patient discharge to [facility]. Telephone verification for transfer confirmed by two RN, ayo RN and Ita Gutierrez. Okay to be discharged to [facility] per .
--- NOTE | 2019-04-26 17:35 | NUR ---
Report called to [facility]. Given to Katarina RN. All questions answered to RN satisfaction.
[2019-04-26] MEDS ORDERED: FUROSEMIDE 40 MG TAB PO SCH (18:00)
--- NOTE | 2019-04-26 19:35 | NUR ---
Patient transferred to [facility] per orders. Discharge instructions given as ordered. Encourage to follow up with PMD as instructed. All questions and concerns addressed. Patient remains oriented to self, report given to Katarina RN at [facility] regarding patient confusion, no sitter needed at this time patient has been cooperative, bed alarm on. Medication reconciliation form completed and copy given to patient. IV removed with catheter intact, pressure dressing applied, alves catheter removed this morning. Telemetry unit returned to ICU. Patient picked up by [employer] transportation with all personal belongings, accompanied by staff and family member. No distress noted at time of departure.
[2019-04-26] MEDS ORDERED: SACUBITRIL-VALSARTAN 24mg/26mg TAB PO SCH (22:00)
[2019-04-26] MEDS ORDERED: DOXYCYCLINE 100 MG TAB/CAP PO SCH (22:00)
[2019-04-26] MEDS ORDERED: DABIGATRAN 75 MG CAP PO SCH (22:00)
== END 2019-04-26 19:35 | DRG 870 ==
LOC: ER 04:15 → EDBD 04:15 → OVERFLOW 04:16 → ICU WEST 09:10 → DOU IN ICU 04-23 22:48 → EAST 04-25 12:58 → TELE-EAST 04-26 05:53
PROVIDERS: ADMIT Nurse Practitioner; ATTEND Internal Medicine
PROC: 5A1955Z Respiratory Ventilation, Greater than 96 Consecutive Hours (ICD-10-PCS; principal; 2019-04-17)
PROC: 0BH17EZ Insertion of Endotracheal Airway into Trachea, Via Natural or Artificial Opening (ICD-10-PCS; 2019-04-17)
PROC: 02HV33Z Insertion of Infusion Device into Superior Vena Cava, Percutaneous Approach (ICD-10-PCS; 2019-04-17)
PROC: B5181ZA Fluoroscopy of Superior Vena Cava using Low Osmolar Contrast, Guidance (ICD-10-PCS; 2019-04-17)
PROC: 0W993ZZ Drainage of Right Pleural Cavity, Percutaneous Approach (ICD-10-PCS; 2019-04-18)
DX: A41.9 Sepsis, unspecified organism (principal); J18.9 Pneumonia, unspecified organism; I21.4 Non-ST elevation (NSTEMI) myocardial infarction; G93.41 Metabolic encephalopathy; I50.23 Acute on chronic systolic (congestive) heart failure; J15.211 Pneumonia due to Methicillin susceptible Staphylococcus aureus; J96.01 Acute respiratory failure with hypoxia; N17.0 Acute kidney failure with tubular necrosis; I13.0 Hypertensive heart and chronic kidney disease with heart failure and stage 1 through stage 4 chronic kidney disease, or unspecified chronic kidney disease; I42.0 Dilated cardiomyopathy; I47.2 Ventricular tachycardia; I48.92 Unspecified atrial flutter; E44.0 Moderate protein-calorie malnutrition; G93.1 Anoxic brain damage, not elsewhere classified; R18.8 Other ascites; J91.8 Pleural effusion in other conditions classified elsewhere; E86.0 Dehydration; E87.6 Hypokalemia; E86.1 Hypovolemia; H91.91 Unspecified hearing loss, right ear; Z95.0 Presence of cardiac pacemaker; N18.3 Chronic kidney disease, stage 3 (moderate); F17.200 Nicotine dependence, unspecified, uncomplicated; G89.29 Other chronic pain; I48.91 Unspecified atrial fibrillation; Z79.82 Long term (current) use of aspirin; Z68.21 Body mass index [BMI] 21.0-21.9, adult; K74.60 Unspecified cirrhosis of liver
CPT/HCPCS: 10022; 36415; 36600; 70450; 71045; 72125; 73030; 76604; 76705; 76942; 80048; 80053; 80076; 80202; 80307; 80320; 81001; 82140; 82247; 82607; 82746; 82805; 82962; 83605; 83735; 83880; 83986; 84132; 84443; 84484; 85014; 85018; 85025; 85610; 85730; 87040; 87070; 87077; 87081; 87086; 87186; 87205; 89051; 93005; 94002; 94003; 96365; 96375; 97163; C9113; G0378; J0330; J2250; J2543; J3480; J3490

== ENCOUNTER 2019-10-23 18:00 | Inpatient (IN) | payer MEDICARE, OTHER ==
[~2019-10-23] VITALS: Ht 167.6 cm; Wt 68.8 kg
[~2019-10-23 18:00] MED LIST changes: -ASPI-231 PO; -CLON0.1T PO; +DABI75CA5 PO; +DOXY-286 PO; +FURO1TAB31 PO; -FURO80TA3 PO; +PANT40T PO; +SOTA80TA20 PO
[2019-10-23 18:52] LABS: Basophils # (auto) 0 10 ^3/uL (0-0.2); Basophils % (auto) 0.6 % (0.0-2.0); Eosinophils # (auto) 0 10 ^3/uL (0-0.8); Eosinophils % (auto) 0.5 % (0.0-7.0); Hematocrit 43.5 % (41.0-53.0); Hemoglobin 14.5 g/dL (13.5-17.5); Lymphocytes # (auto) 0.5 10 ^3/uL (0.4-5.4); Lymphocytes % (auto) 7.5 % (10.0-50.0); Mean Corpuscular Hemoglobin 31.6 pg (28.0-32.0); Mean Corpuscular Hgb Conc. 33.3 g/dL (32.0-36.0); Monocytes # (auto) 0.7 10 ^3/uL (0-1.3); Monocytes % (auto) 10.5 % (0.0-12.0); Neutrophils # (auto) 5.2 10 ^3/uL (1.6-8.6); Neutrophils % (auto) 80.9 % (37.0-80.0); Platelet Count (auto) 157 10^3/uL (140-450); Red Blood Cells 4.57 10^6/uL (4.5-5.90); Red Cell Distribution Width 18.2 % (11.8-14.3); White Blood Cell 6.5 10^3/uL (4.4-10.8)
[2019-10-23 19:02] LABS: Albumin 2.7 g/dL (3.4-5.0); Calcium 8.4 mg/dL (8.5-10.1); Magnesium 2.7 mg/dL (1.6-2.6); Potassium 3.7 mmol/L (3.5-5.1)
[2019-10-23 19:07] LABS: BUN/Creatinine Ratio 19.2; Bilirubin, Total 1.1 mg/dL (0.2-1.0); Total Protein 6.8 g/dL (6.4-8.2)
[2019-10-23 19:08] LABS: INR 1.21 (0.9-1.15); Partial Thromboplastin Time 27.4 sec (23.0-31.2)
[2019-10-23] MEDS ORDERED: FUROSEMIDE 40 MG/4 ML VIAL IV ONE (20:30)
[2019-10-23] MEDS ORDERED: MORPHINE SULF INJ 2 MG/ML SYRINGE 1ML IV PRN (22:15)
[2019-10-23] MEDS ORDERED: ACETAMINOPHEN 325 MG TAB PO PRN (22:15)
[2019-10-23] MEDS ORDERED: ONDANSETRON HCL 4 MG/2 ML VIAL IV PRN (22:15)
[2019-10-23] MEDS ORDERED: NITROGLYCERIN 0.4 MG SL TAB SL PRN (22:15)
[2019-10-23] MEDS ORDERED: levoFLOXacin 500MG 100 ML IV ONE ×2 (22:15)
[2019-10-23] MEDS: ATORVASTATIN 20 MG TAB PO SCH (23:05)
[2019-10-23] MEDS: DABIGATRAN 75 MG CAP PO SCH (23:05)
[2019-10-24 01:53] VITALS: BP 115/75
[2019-10-24 05:00] VITALS: BP 105/58
[2019-10-24] MEDS ORDERED: ASPI-231 PO (06:38)
[2019-10-24 07:11] LABS: Basophils # (auto) 0 10 ^3/uL (0-0.2); Basophils % (auto) 0.6 % (0.0-2.0); Eosinophils # (auto) 0 10 ^3/uL (0-0.8); Eosinophils % (auto) 0.6 % (0.0-7.0); Hematocrit 45.9 % (41.0-53.0); Hemoglobin 14.7 g/dL (13.5-17.5); Lymphocytes # (auto) 0.6 10 ^3/uL (0.4-5.4); Mean Corpuscular Hemoglobin 30.4 pg (28.0-32.0); Mean Corpuscular Volume 95.1 fL (80.0-100.0); Monocytes # (auto) 0.5 10 ^3/uL (0-1.3); Monocytes % (auto) 9.1 % (0.0-12.0); Neutrophils # (auto) 4.5 10 ^3/uL (1.6-8.6); Neutrophils % (auto) 79.7 % (37.0-80.0); Nucleated Red Blood Cells % 0.1 %; Platelet Count (auto) 131 10^3/uL (140-450); Red Blood Cells 4.82 10^6/uL (4.5-5.90); Red Cell Distribution Width 18.8 % (11.8-14.3); White Blood Cell 5.7 10^3/uL (4.4-10.8)
[2019-10-24 08:57] VITALS: BP 98/61
[2019-10-24] MEDS: DABIGATRAN 75 MG CAP PO SCH ×2 (09:26→21:42)
[2019-10-24] MEDS: PANTOPRAZOLE 40 MG TAB PO SCH (09:27)
[2019-10-24] MEDS ORDERED: ASPirin 81 mg TAB PO SCH (10:00)
[2019-10-24] MEDS ORDERED: levoFLOXacin 500MG 100 ML IV SCH ×2 (10:00)
[2019-10-24] MEDS: levoFLOXacin 250MG 50 ML IV SCH (11:00)
[2019-10-24] MEDS ORDERED: ALBUMIN 25% 100 ML IV ONE (14:30)
[2019-10-24 16:56] VITALS: BP 107/65
[2019-10-24] MEDS: FERROUS SULFATE 325 MG TAB PO SCH (17:31)
[2019-10-24] MEDS: FUROSEMIDE 40 MG TAB PO SCH (17:40)
[2019-10-24 17:45] VITALS: BP 107/65
[2019-10-24] MEDS: ALBUTEROL SULF 2.5 MG/0.5ML(0.5%) NEB SOLN NEB SCH ×2 (19:28→23:15)
[2019-10-24] MEDS: IPRATROPIUM BROM 0.5 MG/2.5ML INH SOL NEB SCH ×2 (19:28→23:15)
[2019-10-24 21:00] VITALS: BP 114/65
[2019-10-24] MEDS: ATORVASTATIN 20 MG TAB PO SCH (21:44)
[2019-10-24] MEDS ORDERED: TEMAZEPAM 15 MG CAP PO PRN (23:00)
[2019-10-25] MEDS: FUROSEMIDE 40 MG TAB PO SCH (06:00)
[2019-10-25] MEDS: ALBUTEROL SULF 2.5 MG/0.5ML(0.5%) NEB SOLN NEB SCH ×3 (06:38→18:00)
[2019-10-25] MEDS: IPRATROPIUM BROM 0.5 MG/2.5ML INH SOL NEB SCH ×3 (06:38→18:00)
[2019-10-25] MEDS: FERROUS SULFATE 325 MG TAB PO SCH ×2 (08:00→17:38)
[2019-10-25] MEDS: levoFLOXacin 250MG 50 ML IV SCH (09:20)
[2019-10-25] MEDS: DABIGATRAN 75 MG CAP PO SCH (09:21)
[2019-10-25] MEDS: PANTOPRAZOLE 40 MG TAB PO SCH (09:22)
[2019-10-25 09:43] LABS: Basophils # (auto) 0 10 ^3/uL (0-0.2); Basophils % (auto) 0.4 % (0.0-2.0); Eosinophils # (auto) 0.1 10 ^3/uL (0-0.8); Eosinophils % (auto) 0.9 % (0.0-7.0); Hematocrit 49.3 % (41.0-53.0); Hemoglobin 15.7 g/dL (13.5-17.5); Lymphocytes # (auto) 0.5 10 ^3/uL (0.4-5.4); Lymphocytes % (auto) 8.3 % (10.0-50.0); Mean Corpuscular Hemoglobin 30.4 pg (28.0-32.0); Mean Corpuscular Hgb Conc. 31.9 g/dL (32.0-36.0); Mean Corpuscular Volume 95.3 fL (80.0-100.0); Monocytes # (auto) 0.5 10 ^3/uL (0-1.3); Monocytes % (auto) 8.4 % (0.0-12.0); Neutrophils # (auto) 4.8 10 ^3/uL (1.6-8.6); Nucleated Red Blood Cells % 0.1 %; Platelet Count (auto) 139 10^3/uL (140-450); Red Blood Cells 5.17 10^6/uL (4.5-5.90); Red Cell Distribution Width 18.9 % (11.8-14.3); White Blood Cell 5.8 10^3/uL (4.4-10.8)
[2019-10-25] MEDS ORDERED: ASPirin 81 mg TAB PO SCH (10:00)
[2019-10-25] MEDS ORDERED: FUROSEMIDE 40 MG/4 ML VIAL IV ONE (10:15)
[2019-10-25] MEDS ORDERED: CARVEDILOL 3.125 MG TAB PO ONE (10:15)
[2019-10-25] MEDS ORDERED: fentaNYL CITRATE 100 MCG/2 ML VL IV ONE (11:30)
[2019-10-25] MEDS ORDERED: MIDAZOLAM HCL 1MG/1ML-2 ML VIAL IV ONE (11:30)
[2019-10-25 11:41] VITALS: BP 128/82
[2019-10-25 13:19] LABS: Anion Gap 6 (5-15); BUN/Creatinine Ratio 22.2; Blood Urea Nitrogen 30 mg/dL (7-18); Calcium 9.3 mg/dL (8.5-10.1); Carbon Dioxide 29 mmol/L (21-32); Chloride 106 mmol/L (98-107); GFR African American 66 mL/min; GFR Non-African American 55 mL/min; Glucose 119 mg/dL (74-106); Potassium 3.1 mmol/L (3.5-5.1); Sodium 141 mmol/L (136-145)
[2019-10-25] MEDS ORDERED: LIDOCAINE 2%HCL (LOCAL ANESTH.) INJ 20ML MDV ONE (13:32)
[2019-10-25] MEDS ORDERED: POTASSIUM CHL 20 Meq TABLET PO ONE (14:30)
[2019-10-25] MEDS ORDERED: MULTCAP45 PO (16:22)
[2019-10-25] MEDS ORDERED: CHOL20007 PO (16:22)
[2019-10-25 16:37] VITALS: BP 113/80
[2019-10-25] MEDS: FUROSEMIDE 40 MG/4 ML VIAL IV SCH (17:35)
[2019-10-25] MEDS: POTASSIUM CHL 20 Meq TABLET PO SCH (21:38)
[2019-10-25] MEDS: ATORVASTATIN 20 MG TAB PO SCH (21:39)
[2019-10-25] MEDS: CARVEDILOL 3.125 MG TAB PO SCH (21:45)
[2019-10-25 23:46] VITALS: BP 116/79
[2019-10-26] MEDS: IPRATROPIUM BROM 0.5 MG/2.5ML INH SOL NEB SCH ×4 (00:25→19:06)
[2019-10-26] MEDS: ALBUTEROL SULF 2.5 MG/0.5ML(0.5%) NEB SOLN NEB SCH ×4 (00:25→19:06)
[2019-10-26] MEDS: FUROSEMIDE 40 MG/4 ML VIAL IV SCH ×2 (05:14→17:26)
[2019-10-26 05:32] VITALS: BP 104/70
[2019-10-26 06:10] LABS: INR 1.29 (0.9-1.15); Partial Thromboplastin Time 34.3 sec (23.0-31.2); Potassium 3.8 mmol/L (3.5-5.1)
[2019-10-26 06:14] LABS: Calcium 8.7 mg/dL (8.5-10.1)
[2019-10-26 08:55] VITALS: BP 114/68
[2019-10-26] MEDS: levoFLOXacin 250MG 50 ML IV SCH (09:03)
[2019-10-26] MEDS: FERROUS SULFATE 325 MG TAB PO SCH ×2 (09:04→17:26)
[2019-10-26] MEDS: CARVEDILOL 3.125 MG TAB PO SCH ×2 (09:06→21:41)
[2019-10-26] MEDS: POTASSIUM CHL 20 Meq TABLET PO SCH ×2 (09:07→21:43)
[2019-10-26] MEDS: PANTOPRAZOLE 40 MG TAB PO SCH (09:07)
[2019-10-26 13:00] VITALS: BP 111/64
[2019-10-26] MEDS ORDERED: VANCOMYCIN 1GM/250ML 250 ML IV ONE (13:15)
[2019-10-26] MEDS ORDERED: VANCOMYCIN PER PHARMACY 0 MG IV SCH (13:15)
[2019-10-26 17:00] VITALS: BP 110/73
[2019-10-26] MEDS: ATORVASTATIN 20 MG TAB PO SCH (21:42)
[2019-10-26 22:00] VITALS: BP 100/57
[2019-10-27 05:00] VITALS: BP 117/80
[2019-10-27] MEDS: FUROSEMIDE 40 MG/4 ML VIAL IV SCH (05:34)
[2019-10-27] MEDS: ALBUTEROL SULF 2.5 MG/0.5ML(0.5%) NEB SOLN NEB SCH ×4 (06:00→11:34)
[2019-10-27] MEDS: IPRATROPIUM BROM 0.5 MG/2.5ML INH SOL NEB SCH ×4 (06:00→11:34)
[2019-10-27 06:06] LABS: Basophils # (auto) 0.1 10 ^3/uL (0-0.2); Basophils % (auto) 1.3 % (0.0-2.0); Eosinophils # (auto) 0.2 10 ^3/uL (0-0.8); Eosinophils % (auto) 3.6 % (0.0-7.0); Hematocrit 45.2 % (41.0-53.0); Hemoglobin 14.8 g/dL (13.5-17.5); Lymphocytes # (auto) 0.5 10 ^3/uL (0.4-5.4); Lymphocytes % (auto) 9.4 % (10.0-50.0); Mean Corpuscular Hemoglobin 31.3 pg (28.0-32.0); Mean Corpuscular Hgb Conc. 32.7 g/dL (32.0-36.0); Monocytes # (auto) 0.7 10 ^3/uL (0-1.3); Monocytes % (auto) 13.1 % (0.0-12.0); Neutrophils # (auto) 3.9 10 ^3/uL (1.6-8.6); Neutrophils % (auto) 72.6 % (37.0-80.0); Nucleated Red Blood Cells % 0.1 %; Platelet Count (auto) 143 10^3/uL (140-450); Red Blood Cells 4.71 10^6/uL (4.5-5.90); Red Cell Distribution Width 18.4 % (11.8-14.3); White Blood Cell 5.4 10^3/uL (4.4-10.8)
[2019-10-27 06:33] LABS: Potassium 4.2 mmol/L (3.5-5.1)
[2019-10-27 06:38] LABS: BUN/Creatinine Ratio 24.4; Calcium 8.8 mg/dL (8.5-10.1)
[2019-10-27] MEDS: levoFLOXacin 250MG 50 ML IV SCH (09:30)
[2019-10-27] MEDS: FERROUS SULFATE 325 MG TAB PO SCH (09:30)
[2019-10-27] MEDS: PANTOPRAZOLE 40 MG TAB PO SCH (09:31)
[2019-10-27] MEDS: POTASSIUM CHL 20 Meq TABLET PO SCH (09:31)
[2019-10-27] MEDS: CARVEDILOL 3.125 MG TAB PO SCH (11:42)
[2019-10-27 13:04] VITALS: BP 117/80
[2019-10-27] MEDS ORDERED: VANCOMYCIN 1GM/250ML 250 ML IV SCH (14:00)
== END 2019-10-27 15:31 | disposition home health service (06) | DRG 280 ==
LOC: EDUNIT# 18:00 → EDBD 18:00 → ER 18:00 → EDBD 18:01 → TELE-DOU 18:01 → TELE-EAST 23:17 → TELE-CENTR 10-24 15:27
PROVIDERS: ADMIT Nurse Practitioner; ATTEND Internal Medicine
PROC: 0W9930Z Drainage of Right Pleural Cavity with Drainage Device, Percutaneous Approach (ICD-10-PCS; principal; 2019-10-25)
PROC: 4B02XTZ Measurement of Cardiac Defibrillator, External Approach (ICD-10-PCS; 2019-10-26)
DX: I13.0 Hypertensive heart and chronic kidney disease with heart failure and stage 1 through stage 4 chronic kidney disease, or unspecified chronic kidney disease (principal); I50.43 Acute on chronic combined systolic (congestive) and diastolic (congestive) heart failure; I21.A1 Myocardial infarction type 2; J15.6 Pneumonia due to other Gram-negative bacteria; N17.0 Acute kidney failure with tubular necrosis; E43 Unspecified severe protein-calorie malnutrition; J44.0 Chronic obstructive pulmonary disease with (acute) lower respiratory infection; J91.8 Pleural effusion in other conditions classified elsewhere; Z20.828 Contact with and (suspected) exposure to other viral communicable diseases; I42.9 Cardiomyopathy, unspecified; N18.3 Chronic kidney disease, stage 3 (moderate); F03.90 Unspecified dementia, unspecified severity, without behavioral disturbance, psychotic disturbance, mood disturbance, and anxiety; K74.60 Unspecified cirrhosis of liver; F32.9 Major depressive disorder, single episode, unspecified; E87.6 Hypokalemia; I25.10 Atherosclerotic heart disease of native coronary artery without angina pectoris; I27.20 Pulmonary hypertension, unspecified; Z82.49 Family history of ischemic heart disease and other diseases of the circulatory system; Z95.1 Presence of aortocoronary bypass graft; Z95.5 Presence of coronary angioplasty implant and graft; Z95.810 Presence of automatic (implantable) cardiac defibrillator
CPT/HCPCS: 10022; 36415; 71045; 71250; 76604; 76942; 77002; 80048; 80053; 83615; 83735; 83880; 83986; 84443; 84484; 85025; 85379; 85610; 85730; 87040; 87070; 87077; 87081; 87186; 87205; 87426; 89051; 93005; 93306; 94640; G0378; J1956; J2250; P9047

== ENCOUNTER 2019-12-19 15:14 | Inpatient (IN) | payer MEDICARE, OTHER ==
[~2019-12-19] VITALS: Ht 162.6 cm; Wt 63.0 kg
[~2019-12-19 15:14] MED LIST changes: +ASPI-231 PO; +CHOL20007 PO; -DABI75CA5 PO; -DOXY-286 PO; -FER325T PO; +MULTCAP45 PO; -PANT40T PO; -SACU1TAB PO
[2019-12-19 15:55] LABS: Basophils # (auto) 0 10 ^3/uL (0-0.2); Basophils % (auto) 0.6 % (0.0-2.0); Eosinophils # (auto) 0 10 ^3/uL (0-0.8); Eosinophils % (auto) 0.2 % (0.0-7.0); Hematocrit 44.9 % (41.0-53.0); Lymphocytes # (auto) 0.9 10 ^3/uL (0.4-5.4); Lymphocytes % (auto) 14.5 % (10.0-50.0); Mean Corpuscular Hgb Conc. 33.4 g/dL (32.0-36.0); Mean Corpuscular Volume 95.8 fL (80.0-100.0); Monocytes # (auto) 0.8 10 ^3/uL (0-1.3); Monocytes % (auto) 13.1 % (0.0-12.0); Neutrophils # (auto) 4.3 10 ^3/uL (1.6-8.6); Neutrophils % (auto) 71.6 % (37.0-80.0); Nucleated Red Blood Cells % 0.3 %; Platelet Count (auto) 191 10^3/uL (140-450); Red Blood Cells 4.68 10^6/uL (4.5-5.90); Red Cell Distribution Width 17.3 % (11.8-14.3); White Blood Cell 5.9 10^3/uL (4.4-10.8)
[2019-12-19] MEDS ORDERED: LORazepam 2MG/ML-1ML VIAL IV ONE ×2 (16:00→19:45)
[2019-12-19 16:10] LABS: Lactic Acid w/Reflex 5.3 mmol/L (0.4-2.0)
[2019-12-19 16:12] LABS: Albumin 2.8 g/dL (3.4-5.0); Anion Gap 9 (5-15); Blood Urea Nitrogen 28 mg/dL (7-18); Calcium 8.5 mg/dL (8.5-10.1); Carbon Dioxide 20 mmol/L (21-32); Chloride 106 mmol/L (98-107); Glucose 135 mg/dL (74-106); Magnesium 2.3 mg/dL (1.6-2.6); Potassium 4.3 mmol/L (3.5-5.1); Sodium 135 mmol/L (136-145)
[2019-12-19 16:14] LABS: Alanine Aminotransferase 19 U/L (16-61); Aspartate Aminotransferase 37 U/L (15-37); BUN/Creatinine Ratio 17.7; GFR African American 55 mL/min; GFR Non-African American 46 mL/min
[2019-12-19 16:22] LABS: Alkaline Phosphatase 137 U/L (45-117); Bilirubin, Total 1.2 mg/dL (0.2-1.0)
[2019-12-19] MEDS ORDERED: cefTRIAXone 1GM/50ML D5W 50 ML IV ONE (17:00)
[2019-12-19] MEDS ORDERED: NITROGLYCERIN 0.4 MG SL TAB SL PRN (17:00)
[2019-12-19] MEDS ORDERED: FUROSEMIDE 40 MG/4 ML VIAL IV ONE (17:15)
[2019-12-19] MEDS ORDERED: LEVO25TA6 PO (17:28)
[2019-12-19] MEDS ORDERED: APIX2.5T PO (17:32)
[2019-12-19] MEDS ORDERED: SOTA80TA20 PO (17:32)
[2019-12-19] MEDS ORDERED: POTA10TA32 PO (17:33)
[2019-12-19] MEDS ORDERED: FURO1TAB31 PO (17:36)
[2019-12-19] MEDS ORDERED: FUROSEMIDE 40 MG TAB PO SCH (18:00)
--- NOTE | 2019-12-19 18:45 | NUR ---
ADMIT Admit to [facility] admitted to [facility] via gurney on cat swamper, and portable 02at 3L NC. Patient transfered to bed, connected to unit monitoring and oxygen, and weighed by bedscale. Patient oriented to CARLOS BRASHER, primary RN, unit, room, bed, and unit policies regarding patient care and visiting hours. All questions and concerns addressed, patient verbalized understanding. Vital Signs: 105/54 78 11 97 on 3L NC
--- NOTE | 2019-12-19 18:58 | NUR ---
MD Dr Angeles at bedside. Orders received to transfer service to Dr Elias.
--- NOTE | 2019-12-19 19:00 | NUR ---
REPORT RECEIVED REPORT FROM NURSE DIAZ TO RESUME CARE OF PATIENT.
--- NOTE | 2019-12-19 19:08 | NUR ---
END OF SHIFT NOTE Report given to NOC RNSkylar. Endorsed care of patient.
[2019-12-19] MEDS ORDERED: LORazepam 2MG/ML-1ML VIAL ONE (19:48)
--- NOTE | 2019-12-19 19:50 | NUR ---
COMBATIVE CONFUSED AND AGGITATION PATIENT IS ALERT AWAKE BUT CONFUSED UNABLE TO REDIRECT. PATIENT ATTEMPTING TO GET OUT OF BED AND THINKS HE IS AT HOME. PATIENT VERBALLY ABUSIVE AND SWINGING HIS ARMS ATTEMPTING TO STRIKE THE NURSES. CALLED EQUIPMENT SERVICE ASSOCIATE LULU MARIE WHO WORKS ALONG WITH DR GOODSON INFORMED PATIENT STATUS AND BEHAVIOR. RECEIVED ORDER FOR ATIVAN 1MG IV X1 NOW. TORBO.
[2019-12-19 20:00] VITALS: BP 97/52
--- NOTE | 2019-12-19 20:15 | NUR ---
PATIENT CONTINUES TO BE COMBATIVE AND AGGITATED. ADMINISTERED ATIVAN 1MG IV PRESCRIBED. PLACED MITTENS TO BILATERAL HANDS FOR PATIENT SAFETY. PATIENT CALMED DOWN AND IS ASLEEP. PATIENT IN NO APPARENT CARDIAC OR RESPIRATORY DISTRESS. WILL CONTINUE TO MONITOR PATIENT, BED ALARM ARMED.
[2019-12-19] MEDS: AZITHROMYCIN 500MG/ 250ML 250 ML IV SCH (20:50)
[2019-12-19] MEDS: PIPERACILLIN-TAZOB 3.375GM 100 ML IV SCH (22:57)
[2019-12-20] VITALS (15 sets, daily range): BP systolic 99–131; BP diastolic 56–78
[2019-12-20] MEDS: MORPHINE SULF INJ 2 MG/ML SYRINGE 1ML IV PRN ×2 (02:17→13:30)
[2019-12-20 03:40] LABS: Basophils # (auto) 0 10 ^3/uL (0-0.2); Basophils % (auto) 0.7 % (0.0-2.0); Eosinophils # (auto) 0 10 ^3/uL (0-0.8); Eosinophils % (auto) 0.1 % (0.0-7.0); Hematocrit 42.6 % (41.0-53.0); Hemoglobin 14.1 g/dL (13.5-17.5); Lymphocytes # (auto) 0.5 10 ^3/uL (0.4-5.4); Lymphocytes % (auto) 9.6 % (10.0-50.0); Mean Corpuscular Hemoglobin 31.2 pg (28.0-32.0); Mean Corpuscular Volume 94.5 fL (80.0-100.0); Monocytes # (auto) 0.6 10 ^3/uL (0-1.3); Monocytes % (auto) 13.3 % (0.0-12.0); Neutrophils # (auto) 3.6 10 ^3/uL (1.6-8.6); Neutrophils % (auto) 76.3 % (37.0-80.0); Nucleated Red Blood Cells % 0.2 %; Platelet Count (auto) 146 10^3/uL (140-450); Red Blood Cells 4.51 10^6/uL (4.5-5.90); Red Cell Distribution Width 17.2 % (11.8-14.3); White Blood Cell 4.7 10^3/uL (4.4-10.8)
[2019-12-20 03:58] LABS: Albumin 2.3 g/dL (3.4-5.0); Calcium 8.2 mg/dL (8.5-10.1)
[2019-12-20 04:06] LABS: BUN/Creatinine Ratio 19.4; Total Protein 5.8 g/dL (6.4-8.2)
[2019-12-20 04:15] LABS: Potassium 2.9 mmol/L (3.5-5.1)
[2019-12-20] MEDS: PIPERACILLIN-TAZOB 3.375GM 100 ML IV SCH ×3 (04:46→14:15)
[2019-12-20] MEDS ORDERED: FUROSEMIDE 100 MG/10ML VIAL IV SCH (06:00)
[2019-12-20] MEDS ORDERED: FUROSEMIDE 40 MG TAB PO SCH (06:00)
--- NOTE | 2019-12-20 06:20 | NUR ---
CRITICAL LAB VALUE AND STATUS UPDATE INFORMED STANLEY MARIE WHO IS WORKING WITH DR GOODSON PT CURRENT K-2.9 INFORMED HER PATIENT IS ON LASIX, AND THAT PATIENT STARTING TO WAKE UP CONFUSED. STANLEY MARIE WILL PUT ORDERS. AWAITING ORDERS.
[2019-12-20] MEDS: POTASSIUM CHL 20MEQ/100ML 100 ML IV SCH ×3 (06:45→10:30)
--- NOTE | 2019-12-20 07:00 | NUR ---
Received report from Skylar SNYDER Patient asleep with NC 2L, mittens on bilateral wrists for patient safety and a spitbag over head d/t spitting. Patient is COVID 19 positive and in airbornne isolation. Dr. Pang bedside at 0730 for examination. Ultrasound bedside for DVT ultrasound. Patient AOx1 at this time. Moves all extremities, does not follow commands. Patient is vpaced rate of 70, pulses present. [place] catheter, clear yellow urine. Will continue to monitor.
--- NOTE | 2019-12-20 07:02 | NUR ---
PT. ASSESSED, NO RESP.DISTRESS OR SOB NOTED. PT. IS SLEEPING AT THIS TIME, HR=71,RR=18, SP02=96% ON 4LPM NC. NO CHANGES TO BE MADE AT THIS TIME.
[2019-12-20 07:10] LABS: Magnesium 2.4 mg/dL (1.6-2.6)
[2019-12-20 07:13] LABS: Phosphorus 3.4 mg/dL (2.5-4.90)
--- NOTE | 2019-12-20 08:59 | NUR ---
Per Dr. Pang Pulmonology consult, call Dr. Elias or is LINE MOVER for order.
[2019-12-20] MEDS: DexAMETHasone SOD PHOS 10MG/1ML VIAL INJ IV SCH (09:40)
[2019-12-20] MEDS: PANTOPRAZOLE 40 MG/10 ML VIAL INJ IV SCH (09:40)
[2019-12-20] MEDS: ASCORBIC ACID 500 MG TAB PO SCH (10:00)
[2019-12-20] MEDS ORDERED: ENOXAPARIN SOD 100 MG/1 ML SYRINGE SC SCH (10:00)
[2019-12-20] MEDS ORDERED: AZITHROMYCIN 500MG/ 250ML 250 ML IV SCH (10:00)
[2019-12-20] MEDS: ZINC SULFATE 220mg CAP or TAB PO SCH (10:00)
[2019-12-20] MEDS: MULTIPLE VITAMIN TAB PO SCH (10:00)
[2019-12-20] MEDS: ASPirin-EC 81 mg tab PO SCH (10:00)
[2019-12-20] MEDS: CHOLECALCIFEROL (VITD3) 2,000 UNIT CAP PO SCH (10:00)
[2019-12-20] MEDS ORDERED: SOTALOL HCL 80 MG TAB PO SCH (10:00)
[2019-12-20] MEDS: QUEtiapine FUMARATE 25 MG TAB PO SCH ×2 (10:00→21:49)
[2019-12-20] MEDS ORDERED: ENOXAPARIN SOD 40 MG/0.4 ML SYRINGE SC SCH (10:00)
--- NOTE | 2019-12-20 10:00 | NUR ---
Cannot take PO medications Patient is not waking up or following commands,
--- NOTE | 2019-12-20 10:00 | NUR ---
RN bedside Patient still drowsy and sleeping. Patient repositioned.
--- NOTE | 2019-12-20 11:30 | NUR ---
RN bedside Patient arousable now and following commands. He is complains of being very cold and saturations are 90%, RN put patient on non rebreather at 12 L.
--- NOTE | 2019-12-20 13:34 | NUR ---
RN bedside Patient now awake, complaining of back pain 09/16, Patient was repositioned and pillows put under back and he states there is not relief. Patient given Morphine 2 mg for pain.
--- NOTE | 2019-12-20 15:10 | NUR ---
ATTEMPTED TO TAKE PATIENT TO RADIOLOGY FOR C.T. CHEST - PATIENT'S SBP 78-90. PATIENT ON NRB AT 12L - SAO2 100%. PATIENT DROWSY. PATIENT'S RN MOOKIE STATES TO HOLD C.T. FOR TODAY AND WILL NOTIFY
[2019-12-20] MEDS ORDERED: NOREPINEPHRINE 8 MG/250ML KIT 250 ML IV ONE (15:44)
[2019-12-20] MEDS ORDERED: NOREPINEPHRINE 8 MG/250ML KIT 250 ML IV SCH (15:45)
--- NOTE | 2019-12-20 15:45 | NUR ---
RN called Mitra DYNAMICIST patient is now hypotensive after agressive diuresis with total output of 3000 ml on phlebotomy specialist and 1900 mL during day shift. Patient started on Levophed per Dr. Abdalla who was on unit. Mitra is in hospital and will be by to see the patient.
--- NOTE | 2019-12-20 16:26 | NUR ---
RN bedside Patient arouses from sleep and complains of abdominal pain and back pain and states he cannot take it anymore and refuses repositioning to help alleviate. RN awaiting Skylar MANAGER PERFORMANCE IMPROVEMENT to round.
--- NOTE | 2019-12-20 16:43 | NUR ---
Skylar HOSPICE TEAM LEAD bedside Discussed hypotensive status, negative output status, and patient symptoms. New order for 250 ml IV fluid bolus, turn off Levophed and new order for Albumin x3 bottles. RN will follow up with Skylar ANGEL after BNP.
--- NOTE | 2019-12-20 16:44 | NUR ---
Skylar SALESPERSON WIGS albumin Okay to give albumin one right after another so that patient can hopefully get off of levophed.
[2019-12-20] MEDS: ALBUMIN 25% 100 ML IV SCH ×7 (16:45→18:59)
[2019-12-20] MEDS ORDERED: SODIUM CHLORIDE 0.9% 250 ML IV ONE (16:45)
--- NOTE | 2019-12-20 16:55 | NUR ---
RN speaking with Pavan and Hector is other son - Kerri is and decision maker for patient: [phone] Updated on status. Patient comes from home with and daughter. Rest of family got tested
[2019-12-20 17:05] LABS: Calcium 8.8 mg/dL (8.5-10.1)
--- NOTE | 2019-12-20 18:30 | NUR ---
END of shift Patient remains on Norephinephrine at 20 mcg with BP 121/62 HR 73 RR 18 SPO2 100%, non rebreather at 12L. Patient sleeping calm in bed, experiences pain when turning and at times will request pillow to be taken out from back. Patient still needs chest CT when hemodynamically stable. Spoke with family today, is decision maker for patient.
--- NOTE | 2019-12-20 19:30 | NUR ---
Skylar Ge ELECTRONIC DATA INTERCHANGE SPECIALIST New orders for Morphine 2 mg Q4hrs for apin 7-10.
--- NOTE | 2019-12-20 19:40 | NUR ---
REPORT RECEIVED AND ASSUMED CARE; SEE INTERVENTION FOR ASSESSMENT; VS STABLE AT THIS TIME WITH PT. ON 10L NRB MASK; WILL CHANGE PT. TO SIMPLE MASK AT 10L; PT. SLEEPING IN BED AND NODS HEAD YES TO PAIN SCALE OF 0-3/10 HIS GOAL; PAIN IS AGGRAVATED WITH ADL'S AND REPOSITION; ADJUSTED ROOM TEMPERATURE SO IT IS WARMER PT. VERY COLD; WILL CONT. TO MONITOR.
[2019-12-20 20:33] LABS: Basophils # (auto) 0 10 ^3/uL (0-0.2); Basophils % (auto) 0.2 % (0.0-2.0); Eosinophils # (auto) 0 10 ^3/uL (0-0.8); Eosinophils % (auto) 0.1 % (0.0-7.0); Hemoglobin 14.2 g/dL (13.5-17.5); Lymphocytes # (auto) 0.2 10 ^3/uL (0.4-5.4); Lymphocytes % (auto) 3.9 % (10.0-50.0); Mean Corpuscular Hemoglobin 31.6 pg (28.0-32.0); Mean Corpuscular Hgb Conc. 33.1 g/dL (32.0-36.0); Mean Corpuscular Volume 95.6 fL (80.0-100.0); Monocytes # (auto) 0.2 10 ^3/uL (0-1.3); Neutrophils # (auto) 5.1 10 ^3/uL (1.6-8.6); Neutrophils % (auto) 92.8 % (37.0-80.0); Nucleated Red Blood Cells % 0.1 %; Platelet Count (auto) 161 10^3/uL (140-450); Red Cell Distribution Width 16.8 % (11.8-14.3); White Blood Cell 5.5 10^3/uL (4.4-10.8)
[2019-12-20 20:44] LABS: Potassium 3.6 mmol/L (3.5-5.1)
[2019-12-20 20:48] LABS: BUN/Creatinine Ratio 20.7; Calcium 8.4 mg/dL (8.5-10.1)
[2019-12-20] MEDS: ENOXAPARIN SOD 80 MG/0.8ML SYRINGE SC SCH (21:50)
[2019-12-20] MEDS: AZITHROMYCIN 500MG/ 250ML 250 ML IV SCH (21:51)
[2019-12-21 04:00] VITALS: BP 112/64
[2019-12-21 04:03] LABS: Basophils # (auto) 0 10 ^3/uL (0-0.2); Basophils % (auto) 0.2 % (0.0-2.0); Eosinophils # (auto) 0 10 ^3/uL (0-0.8); Hematocrit 45.7 % (41.0-53.0); Hemoglobin 15.2 g/dL (13.5-17.5); Lymphocytes # (auto) 0.3 10 ^3/uL (0.4-5.4); Lymphocytes % (auto) 5.6 % (10.0-50.0); Mean Corpuscular Hemoglobin 31.7 pg (28.0-32.0); Mean Corpuscular Hgb Conc. 33.2 g/dL (32.0-36.0); Mean Corpuscular Volume 95.4 fL (80.0-100.0); Monocytes # (auto) 0.3 10 ^3/uL (0-1.3); Neutrophils % (auto) 87.2 % (37.0-80.0); Platelet Count (auto) 146 10^3/uL (140-450); Red Blood Cells 4.79 10^6/uL (4.5-5.90); Red Cell Distribution Width 17.3 % (11.8-14.3); White Blood Cell 4.6 10^3/uL (4.4-10.8)
[2019-12-21 04:21] LABS: BUN/Creatinine Ratio 21.1; Calcium 8.5 mg/dL (8.5-10.1); Magnesium 2.5 mg/dL (1.6-2.6); Potassium 3.5 mmol/L (3.5-5.1)
[2019-12-21] MEDS: PIPERACILLIN-TAZOB 3.375GM 100 ML IV SCH ×3 (06:02→22:39)
--- NOTE | 2019-12-21 07:41 | NUR ---
updated son (azalia maurice) on pt. condition and plan of care; i was able to answer all of the son's questions/concerns; the pt. son really wants dad to come home if able, and quarantine there; will discuss with am rn and have her follow up with primary doctor.
[2019-12-21 08:00] VITALS: BP 116/57
--- NOTE | 2019-12-21 08:45 | NUR ---
SPOKE TO JAX SNYDER RE: CT CHEST - STATES PATIENT MAY BE DISCHARGED HOME INSTEAD OF CONTINUING AGGRESSIVE TREATMENT. WILL SPEAK WITH MD. DIRECTOR MICROBIOLOGY WILL FOLLOW UP.
--- NOTE | 2019-12-21 09:50 | NUR ---
DR SMALLS AT BEDSIDE DISCUSSED PATIENT STATUS, NEW ORDERS PLACED.
[2019-12-21] MEDS: DexAMETHasone SOD PHOS 10MG/1ML VIAL INJ IV SCH (10:00)
[2019-12-21] MEDS: QUEtiapine FUMARATE 25 MG TAB PO SCH ×2 (10:00→22:40)
[2019-12-21] MEDS: PANTOPRAZOLE 40 MG/10 ML VIAL INJ IV SCH (10:00)
[2019-12-21] MEDS ORDERED: FUROSEMIDE 20 MG/2 ML VIAL IV SCH (11:30)
--- NOTE | 2019-12-21 11:50 | NUR ---
LULU MARIE QUILL CLEANER AT BEDSIDE DISCUSSED PATIENTS STATUS, NEW ORDERS RECEIVED
[2019-12-21 12:00] VITALS: BP 96/63
[2019-12-21] MEDS: ASCORBIC ACID 500 MG TAB PO SCH (12:00)
[2019-12-21] MEDS: ENOXAPARIN SOD 80 MG/0.8ML SYRINGE SC SCH ×2 (12:00→22:40)
[2019-12-21] MEDS: SOTALOL HCL 80 MG TAB PO SCH ×2 (12:00→22:40)
[2019-12-21] MEDS: CHOLECALCIFEROL (VITD3) 2,000 UNIT CAP PO SCH (12:00)
[2019-12-21] MEDS: POTASSIUM CHL 20MEQ/100ML 100 ML IV SCH ×2 (12:00→13:51)
[2019-12-21] MEDS: MULTIPLE VITAMIN TAB PO SCH (12:00)
[2019-12-21] MEDS: ASPirin-EC 81 mg tab PO SCH (12:00)
[2019-12-21] MEDS: ZINC SULFATE 220mg CAP or TAB PO SCH (12:00)
--- NOTE | 2019-12-21 12:00 | NUR ---
PER DR CANALES- REMOVE UP TO 1 LITER PATIENT TOLERATES USING EXISTING PLEURX CATHETER USING STERILE TECHNIQUE ACCESSED CATHETER AND REMOVED 1L. VITALS REMAINED STABLE.
[2019-12-21] MEDS ORDERED: ALBUMIN 25% 100 ML IV ONE (12:15)
--- NOTE | 2019-12-21 13:30 | NUR ---
PATIENT CONFUSED/ ATTEMPTING TO GET OUT OF BED PATIENT STATED HE WANTS TO GO HOME. HE WANTS TO BE WITH HIS FAMILY. WAS NOT ABLE TO VERBALIZE WHERE HE IS. RN REORIENTED HIM, EXPLAINED TO PATIENT FOR HIS SAFETY HE NEEDED TO STAY IN BED. BLANKETS PLACED FOR COMFORT. ASSISTED PATIENT WITH WATER. PATIENT AGREED TO STAY IN BED. IN VIEW OF NURSES STATION. WILL CONTINUE TO MONITOR CLOSELY
--- NOTE | 2019-12-21 14:59 | NUR ---
assessment Patient is a 74 year old male. Per patients Kerri prior to admission patient lived home with her and needed assistance. Per Kerri patient will be returning home with her on discharge. Kerri informed il patient has a fww, cane, wheelchair and oxygen for home use. Patients PCP is Dr Garces. I informed Kerri patient has a ss consult for home health and Kerri informed il patient is on service with [facility]. MD order has been sent to [facility]. Per Bianca at [facility] patient will resume service within 48 hours of discharge. Kerri verbalized understanding and agreed to discharge plan home. Addendum: 12/21/19 at 1504 by Carol DUVALL Amended: Links added.
--- NOTE | 2019-12-21 15:50 | NUR ---
PATIENTS SON AGUSTO CALLED FOR UPDATE PROVIDED PASSWORD. UPDATED HIM ON CURRENT STATUS AND POSSIBLE DISCHARGE TOMORROW. SON IS CONCERNED BECAUSE FAMILY GOT COVID TESTED BUT STILL AWAITING RESULTS. RN HAD TO END CONVERSATION EARLY AT PATIENT WAS TRYING TO GET OUT OF BED
[2019-12-21 16:05] VITALS: BP 114/81
--- NOTE | 2019-12-21 18:20 | NUR ---
BED ASSIGNMENT GIVEN 232, REPORT GIVEN TO ALBERTINA PATIENT TRANSFERRED TO [facility] BED, AND CONNECTED TO PORTABLE TELE BOX AND TRANSPORTED TO [facility]. VITALS STABL AT TIME OF TRANSFER
--- NOTE | 2019-12-21 18:36 | NUR ---
Patient arrived to unit bed 232 BIPIN RAPHAEL admitted to Telemetry unit after SBAR received. Patient oriented to PHOEBE ROMERO RN primary RN, unit, room, bed, and unit policies regarding patient care and visiting hours. Patient now on continuous telemetry monitoring, tele box # 13 and telemetry reading on arrival to unit is paced 70. Patient placed on bedside oxygen, weighed by bedscale and encouraged to call if they need something. All questions and concerns addressed, patient verbalized understanding.
--- NOTE | 2019-12-21 18:47 | NUR ---
CALLED AND UPDATED PATIENTS ALONDRA REGARDING PATIENTS STATUS AND ROOM CHANGE. ADDRESSED HER CONCERNS. SHE IS WAITING FOR HER COVID TEST RESULTS AND WORRIES IF SHE IS NEGATIVE WHO WILL TAKE CARE OF HER AT HOME. SHE STATED SHE WILL ADDRESS IT WITH THE DOCTOR BEFORE DISCHARGE
[2019-12-21 22:00] VITALS: BP 103/60
[2019-12-21] MEDS: AZITHROMYCIN 500MG/ 250ML 250 ML IV SCH (22:39)
[2019-12-22] MEDS: PIPERACILLIN-TAZOB 3.375GM 100 ML IV SCH ×3 (05:46→21:23)
[2019-12-22 05:54] VITALS: BP 100/58
--- NOTE | 2019-12-22 07:06 | NUR ---
closing note pt resting in semi fowlers with HOB at 30 degrees. pt is on 2.5Lnc. no s/s of respiratory distress. endorsed care to day shift RN.
--- NOTE | 2019-12-22 07:12 | NUR ---
Respiratory note: PT IS RESTING COMFORTABLY. NO RESPIRATORY DISTRESS NOTED. SPO2 98% ON 2L NC, HR 68, RR 16, BS CLEAR/DIMINISHED BILATERALLY. NO FURTHER RESPIRATORY INTERVENTIONS INDICATED AT THIS TIME. WILL CONTINUE TO MONITOR PT.
--- NOTE | 2019-12-22 08:00 | NUR ---
ASSESSMENT NOTE PT IS RESTING IN BED COMFORTABLY, LETHARGIC, GENERALIS WEAKNESS NOTED, CONFUSED [id number] ON HIS ADL, AND , PATEL CATHETER TO GRAVITY, WITH YELLOW URINE, PT HAS A DRY CLEAN DRESSING AT RT UPPER CHEST, CHEST DRAINAGE TUBE NOTED, INTACT, REPOSITION EVERY 2 HOURS AT , BED ALARM ACTIVATED, NEXT TO THE NURSING STATION, CALL LIGHT WITHIN REACH
--- NOTE | 2019-12-22 08:30 | NUR ---
BREAKFAST ASSISTING IN FEEDING, HEAD OF BED ELEVATED FOR ASPIRATION PRECAUTIONS
[2019-12-22 09:00] VITALS: BP 101/65
--- NOTE | 2019-12-22 09:50 | NUR ---
PATIENT IS MORE AWAKE AT THIS TIME, QUESTIONING HIS MEDICATIONS, AWARE THAT HE IS AT A HOSPITAL, CONFUSED TO TIME AND PERSON
[2019-12-22] MEDS: ASPirin-EC 81 mg tab PO SCH (09:51)
[2019-12-22] MEDS: MULTIPLE VITAMIN TAB PO SCH (09:51)
[2019-12-22] MEDS: PANTOPRAZOLE 40 MG/10 ML VIAL INJ IV SCH (09:51)
[2019-12-22] MEDS: ZINC SULFATE 220mg CAP or TAB PO SCH (09:51)
[2019-12-22] MEDS: DexAMETHasone SOD PHOS 10MG/1ML VIAL INJ IV SCH (09:51)
[2019-12-22] MEDS: ENOXAPARIN SOD 80 MG/0.8ML SYRINGE SC SCH ×2 (09:52→21:24)
[2019-12-22] MEDS: ASCORBIC ACID 500 MG TAB PO SCH (09:52)
[2019-12-22] MEDS: CHOLECALCIFEROL (VITD3) 2,000 UNIT CAP PO SCH (09:52)
[2019-12-22] MEDS: SOTALOL HCL 80 MG TAB PO SCH ×2 (10:00→22:00)
[2019-12-22] MEDS: QUEtiapine FUMARATE 25 MG TAB PO SCH ×2 (10:00→21:23)
--- NOTE | 2019-12-22 11:11 | NUR ---
DR NOGUEIRA AT BED SIDE FOLLOWING UP ON PT, WITH NEW ORDERS TO HOLD LASIX TODAY AND REPEAT LABS FOR TODAY AND TOMORROW
--- NOTE | 2019-12-22 11:14 | NUR ---
DR NOGUEIRA MADE AWARE THAT [facility] ON HOLD, BP IS LOW
--- NOTE | 2019-12-22 12:15 | NUR ---
DR HENRY AT BED SIDE ASSESSING PT, AWARE OF PATIENT'S WEAKNESS
[2019-12-22 12:22] VITALS: BP 105/64
[2019-12-22 13:47] LABS: Basophils # (auto) 0 10 ^3/uL (0-0.2); Basophils % (auto) 0.1 % (0.0-2.0); Eosinophils # (auto) 0 10 ^3/uL (0-0.8); Hematocrit 48.9 % (41.0-53.0); Hemoglobin 16.5 g/dL (13.5-17.5); Lymphocytes # (auto) 0.3 10 ^3/uL (0.4-5.4); Lymphocytes % (auto) 3.7 % (10.0-50.0); Mean Corpuscular Hemoglobin 31.7 pg (28.0-32.0); Mean Corpuscular Hgb Conc. 33.7 g/dL (32.0-36.0); Mean Corpuscular Volume 93.9 fL (80.0-100.0); Monocytes # (auto) 0.4 10 ^3/uL (0-1.3); Monocytes % (auto) 4.7 % (0.0-12.0); Neutrophils # (auto) 7.4 10 ^3/uL (1.6-8.6); Neutrophils % (auto) 91.5 % (37.0-80.0); Nucleated Red Blood Cells % 0.1 %; Platelet Count (auto) 173 10^3/uL (140-450); Red Cell Distribution Width 16.9 % (11.8-14.3); White Blood Cell 8.1 10^3/uL (4.4-10.8)
--- NOTE | 2019-12-22 14:00 | NUR ---
FAMILY PATIENT'S SON CALLED, UPDATE GIVEN TO HIM, SAID TO MAKE SURE THAT HIS DAD HAS BOTH OF HIS DENTURES, PT HAS BOTH OF THEM ON HIS MOUTH
[2019-12-22 14:05] LABS: Albumin 3.1 g/dL (3.4-5.0); Calcium 9.2 mg/dL (8.5-10.1); Potassium 4.1 mmol/L (3.5-5.1)
[2019-12-22 14:08] LABS: BUN/Creatinine Ratio 21.5; Bilirubin, Total 1.1 mg/dL (0.2-1.0); Total Protein 6.9 g/dL (6.4-8.2)
--- NOTE | 2019-12-22 15:30 | NUR ---
ALARM WENT OFF PT GOT OUT OF BED, WITH LOOSE BM, KEPT DRY AND CLEAN, COMPLETE BED LINEN CHANGE DONE, JACOB CHARGE NURSE MADE AWARE, THAT PT IS CONFUSED AND HE MAY NEED A SITTER
--- NOTE | 2019-12-22 16:56 | NUR ---
PT IS SLEEPING, NO DISTRESS NOTED, CONTINUE MONITORING
[2019-12-22 16:57] LABS: INR 1.24 (0.9-1.15)
[2019-12-22 17:10] VITALS: BP 103/56
--- NOTE | 2019-12-22 18:50 | NUR ---
DINNER PT CONTINUE SLEEPING, NO DISTRESS NOTED, NURSE AIDE WILL REPORT TO NEXT OUTREACH ASSOCIATE AID TO FEED PT, CONTINUE CARE
[2019-12-22 20:40] VITALS: BP 103/56
[2019-12-22] MEDS: AZITHROMYCIN 500MG/ 250ML 250 ML IV SCH (21:23)
[2019-12-22 22:00] VITALS: BP 89/55
[2019-12-23 05:00] VITALS: BP 103/71
[2019-12-23] MEDS: PIPERACILLIN-TAZOB 3.375GM 100 ML IV SCH (05:35)
[2019-12-23 05:38] LABS: Basophils # (auto) 0 10 ^3/uL (0-0.2); Eosinophils # (auto) 0 10 ^3/uL (0-0.8); Hematocrit 49.6 % (41.0-53.0); Hemoglobin 16.6 g/dL (13.5-17.5); Lymphocytes # (auto) 0.5 10 ^3/uL (0.4-5.4); Lymphocytes % (auto) 6.9 % (10.0-50.0); Mean Corpuscular Hemoglobin 31.9 pg (28.0-32.0); Mean Corpuscular Hgb Conc. 33.5 g/dL (32.0-36.0); Mean Corpuscular Volume 95.3 fL (80.0-100.0); Monocytes # (auto) 0.6 10 ^3/uL (0-1.3); Monocytes % (auto) 8.2 % (0.0-12.0); Neutrophils # (auto) 6.4 10 ^3/uL (1.6-8.6); Neutrophils % (auto) 84.9 % (37.0-80.0); Nucleated Red Blood Cells % 0.2 %; Platelet Count (auto) 141 10^3/uL (140-450); Red Blood Cells 5.21 10^6/uL (4.5-5.90); Red Cell Distribution Width 17.2 % (11.8-14.3); White Blood Cell 7.5 10^3/uL (4.4-10.8)
[2019-12-23 05:56] LABS: Potassium 4.2 mmol/L (3.5-5.1)
[2019-12-23 06:11] LABS: Albumin 2.7 g/dL (3.4-5.0); BUN/Creatinine Ratio 26.6; Total Protein 6.1 g/dL (6.4-8.2)
--- NOTE | 2019-12-23 06:55 | NUR ---
closing note pt resting in semi fowlers with HOB at thirty degrees. no s/s of pain or respiratory distress. endorsed care to day shift RN.
--- NOTE | 2019-12-23 07:30 | NUR ---
Opening Shift Note RECEIVED REPORT FROM NOC RN. Assumed care of patient, awake and alert. PATIENT ON OXYGEN AT 2 LPM VIA NASAL CANNULA WITH mo S/S of distress/SOB or pain. BED IN LOWEST, LOCKED POSITION WITH SIDERAILS UP x2 AND CALL LIGHT WITHIN REACH. Instructed on POC and to call for assist PRN, will continue to monitor for changes Q1hr and PRN.
[2019-12-23 09:00] VITALS: BP 102/69
[2019-12-23] MEDS: ASPirin-EC 81 mg tab PO SCH (10:13)
[2019-12-23] MEDS: ZINC SULFATE 220mg CAP or TAB PO SCH (10:13)
[2019-12-23] MEDS: DexAMETHasone SOD PHOS 10MG/1ML VIAL INJ IV SCH (10:13)
[2019-12-23] MEDS: PANTOPRAZOLE 40 MG/10 ML VIAL INJ IV SCH (10:13)
[2019-12-23] MEDS: SOTALOL HCL 80 MG TAB PO SCH ×2 (10:13→21:45)
[2019-12-23] MEDS: QUEtiapine FUMARATE 25 MG TAB PO SCH ×2 (10:14→21:45)
[2019-12-23] MEDS: ENOXAPARIN SOD 80 MG/0.8ML SYRINGE SC SCH ×2 (10:14→21:45)
[2019-12-23] MEDS: ASCORBIC ACID 500 MG TAB PO SCH (10:14)
[2019-12-23] MEDS: MULTIPLE VITAMIN TAB PO SCH (10:14)
[2019-12-23] MEDS: CHOLECALCIFEROL (VITD3) 2,000 UNIT CAP PO SCH (10:14)
--- NOTE | 2019-12-23 12:05 | NUR ---
Nutrition Assessment Notes Please refer to link for full assessment notes. Est Energy needs: 1895-9618 kcals (30-35 kcal/kgBW) d/t elev RFTs Est Protein needs: 37-47 gms/day (0.6-0.75 gm/kgBW) d/t elev RFTs Will continue to monitor and reassess prn. Addendum: 12/23/19 at [address] Amended: Links added.
[2019-12-23 13:00] VITALS: BP 103/67
[2019-12-23 17:00] VITALS: BP 110/55
[2019-12-23] MEDS: PIPERACILLIN-TAZOB 2.25GM 50 ML IV SCH (17:52)
[2019-12-23] MEDS: AZITHROMYCIN 500MG/ 250ML 250 ML IV SCH (21:44)
[2019-12-23 22:00] VITALS: BP 104/68
[2019-12-24] MEDS: PIPERACILLIN-TAZOB 2.25GM 50 ML IV SCH ×2 (00:22→05:50)
[2019-12-24 05:00] VITALS: BP 106/66
--- NOTE | 2019-12-24 06:17 | NUR ---
Respiratory note: ASSESSED PT , NO RESP DISTRESS NOTED, WITH SITTER AT BEDSIDE. HR 77, RR 20, SPO2 94% ON ROOM AIR.
--- NOTE | 2019-12-24 07:20 | NUR ---
closing note pt resting in semi fowlers with HOB at 30 degrees. pt has a sitter. no s/s of respiratory distress. pt is on 2Lnc. endorsed care to day shift CLAUDIO Tripp.
[2019-12-24 07:24] LABS: Basophils # (auto) 0 10 ^3/uL (0-0.2); Eosinophils # (auto) 0 10 ^3/uL (0-0.8); Hematocrit 46.4 % (41.0-53.0); Hemoglobin 15.7 g/dL (13.5-17.5); Lymphocytes # (auto) 0.3 10 ^3/uL (0.4-5.4); Lymphocytes % (auto) 3.8 % (10.0-50.0); Mean Corpuscular Hemoglobin 31.3 pg (28.0-32.0); Mean Corpuscular Hgb Conc. 33.7 g/dL (32.0-36.0); Mean Corpuscular Volume 92.7 fL (80.0-100.0); Monocytes # (auto) 0.5 10 ^3/uL (0-1.3); Monocytes % (auto) 7.3 % (0.0-12.0); Neutrophils # (auto) 6.6 10 ^3/uL (1.6-8.6); Neutrophils % (auto) 88.9 % (37.0-80.0); Nucleated Red Blood Cells % 0.2 %; Platelet Count (auto) 153 10^3/uL (140-450); Red Blood Cells 5.01 10^6/uL (4.5-5.90); Red Cell Distribution Width 16.8 % (11.8-14.3); White Blood Cell 7.4 10^3/uL (4.4-10.8)
--- NOTE | 2019-12-24 07:30 | NUR ---
Opening Shift Note RECEIVED REPORT FROM NOC RN. Assumed care of patient, awake and alert. PATIENT ON OXYGEN AT 2 LPM VIA NASAL CANNULA WITH no S/S of distress/SOB or pain. BED IN LOWEST, LOCKED POSITION WITH SIDERAILS UP x2 AND CALL LIGHT WITHIN REACH AND SITTER AT BEDSIDE. PATIENT IS STILL CONFUSED. Instructed on POC and to call for assist PRN, will continue to monitor for changes Q1hr and PRN.
[2019-12-24 07:44] LABS: BUN/Creatinine Ratio 26.6; Potassium 3.7 mmol/L (3.5-5.1)
[2019-12-24 09:00] VITALS: BP 107/60
[2019-12-24] MEDS: ASCORBIC ACID 500 MG TAB PO SCH (10:00)
[2019-12-24] MEDS: DexAMETHasone SOD PHOS 10MG/1ML VIAL INJ IV SCH (10:09)
[2019-12-24] MEDS: ZINC SULFATE 220mg CAP or TAB PO SCH (10:09)
[2019-12-24] MEDS: PANTOPRAZOLE 40 MG/10 ML VIAL INJ IV SCH (10:09)
[2019-12-24] MEDS: SOTALOL HCL 80 MG TAB PO SCH (10:10)
[2019-12-24] MEDS: MULTIPLE VITAMIN TAB PO SCH (10:10)
[2019-12-24] MEDS: ASPirin-EC 81 mg tab PO SCH (10:10)
[2019-12-24] MEDS: CHOLECALCIFEROL (VITD3) 2,000 UNIT CAP PO SCH (10:11)
[2019-12-24] MEDS: QUEtiapine FUMARATE 25 MG TAB PO SCH (10:11)
[2019-12-24] MEDS: ENOXAPARIN SOD 80 MG/0.8ML SYRINGE SC SCH (10:11)
--- NOTE | 2019-12-24 10:45 | NUR ---
S/W FAMILY REGARDING PATIENT STATUS. FAMILY IS ADAMANT ABOUT HAVING PATIENT DISCHARGED TODAY.
--- NOTE | 2019-12-24 11:45 | NUR ---
STANLEY LAWSON AT BEDSIDE.
[2019-12-24 13:07] VITALS: BP 100/56
[2019-12-24 13:28] VITALS: BP 100/56
--- NOTE | 2019-12-24 14:00 | NUR ---
Discharge instructions given as ordered. Encourage to follow up with PMD as instructed. All questions and concerns addressed. Patient verbalized understanding. Medication reconciliation form completed and copy given to patient. IV removed with catheter intact, pressure dressing applied, alves catheter removed. Telemetry unit returned to ICU. Patient taken to vehicle via wheelchair with all personal belongings, accompanied by staff. No distress noted at time of departure.
--- NOTE | 2019-12-24 14:46 | NUR ---
re-assessment Per consult needs HH for safety eval. Per Kerri patients she wants patient to resume with [facility]. MD order has been sent to [facility] [facility]. Per Bianca at [employer] [facility] service will resume on 12/26/2019 and she has been informed that patient is Covid positive. Kerri campa has been notified. Addendum: 12/24/19 at 1457 by Carol Lorenz Amended: Links added.
== END 2019-12-24 14:00 | disposition home health service (06) | DRG 871 ==
LOC: ER 15:14 → EDBD 15:14 → TELE 15:15 → DOU IN ICU 18:35 → TELE-EAST 12-21 18:37
PROVIDERS: ADMIT Specialist; ATTEND Internal Medicine
PROC: 5A09357 Assistance with Respiratory Ventilation, Less than 24 Consecutive Hours, Continuous Positive Airway Pressure (ICD-10-PCS; principal; 2019-12-19)
DX: A41.89 Other specified sepsis (principal); U07.1 COVID-19; J96.01 Acute respiratory failure with hypoxia; I50.43 Acute on chronic combined systolic (congestive) and diastolic (congestive) heart failure; J12.89 Other viral pneumonia; J98.11 Atelectasis; I42.9 Cardiomyopathy, unspecified; I13.0 Hypertensive heart and chronic kidney disease with heart failure and stage 1 through stage 4 chronic kidney disease, or unspecified chronic kidney disease; J44.0 Chronic obstructive pulmonary disease with (acute) lower respiratory infection; E03.9 Hypothyroidism, unspecified; I73.9 Peripheral vascular disease, unspecified; D64.9 Anemia, unspecified; N18.9 Chronic kidney disease, unspecified; K21.9 Gastro-esophageal reflux disease without esophagitis; I48.91 Unspecified atrial fibrillation; F32.9 Major depressive disorder, single episode, unspecified; I25.10 Atherosclerotic heart disease of native coronary artery without angina pectoris; F03.90 Unspecified dementia, unspecified severity, without behavioral disturbance, psychotic disturbance, mood disturbance, and anxiety; H91.90 Unspecified hearing loss, unspecified ear; Z79.82 Long term (current) use of aspirin; Z79.01 Long term (current) use of anticoagulants; Z95.0 Presence of cardiac pacemaker; Z95.1 Presence of aortocoronary bypass graft; Z82.49 Family history of ischemic heart disease and other diseases of the circulatory system; Z79.899 Other long term (current) drug therapy
CPT/HCPCS: 36415; 36600; 71045; 80048; 80053; 80061; 82140; 82728; 82805; 83036; 83605; 83615; 83735; 83880; 84100; 84443; 84484; 85025; 85379; 85610; 86141; 87040; 87426; 93005; 93970; 94660; 96365; 96367; 96375; 99291; C9113; G0378; J0696; J1100; J2543; J3480; P9047

== ENCOUNTER 2020-01-05 15:10 | Inpatient (IN) | payer MEDICARE, OTHER ==
[~2020-01-05] VITALS: Ht 172.7 cm; Wt 65.6 kg
[~2020-01-05 15:10] MED LIST changes: +APIX2.5T PO; -ASPI-231 PO; +LEVO25TA6 PO; +POTA10TA32 PO
[2020-01-05] MEDS ORDERED: ASCORBIC ACID 500 MG TAB PO ONE (17:15)
[2020-01-05] MEDS ORDERED: DexAMETHasone SOD PHOS 10MG/1ML VIAL INJ IV ONE (17:15)
[2020-01-05] MEDS ORDERED: DOXYCYCLINE 100MG/250ML 250 ML IV ONE (17:15)
[2020-01-05] MEDS ORDERED: ZINC SULFATE 220mg CAP or TAB PO ONE (17:15)
[2020-01-05 18:36] LABS: Basophils # (auto) 0.1 10 ^3/uL (0-0.2); Basophils % (auto) 1.7 % (0.0-2.0); Eosinophils # (auto) 0.1 10 ^3/uL (0-0.8); Eosinophils % (auto) 2.2 % (0.0-7.0); Hematocrit 37.4 % (41.0-53.0); Hemoglobin 12.4 g/dL (13.5-17.5); Lymphocytes # (auto) 0.9 10 ^3/uL (0.4-5.4); Lymphocytes % (auto) 14.6 % (10.0-50.0); Mean Corpuscular Hemoglobin 31.4 pg (28.0-32.0); Mean Corpuscular Volume 95.1 fL (80.0-100.0); Monocytes # (auto) 0.5 10 ^3/uL (0-1.3); Neutrophils # (auto) 4.6 10 ^3/uL (1.6-8.6); Neutrophils % (auto) 73.5 % (37.0-80.0); Nucleated Red Blood Cells % 0.1 %; Platelet Count (auto) 219 10^3/uL (140-450); Red Blood Cells 3.94 10^6/uL (4.5-5.90); Red Cell Distribution Width 18.2 % (11.8-14.3); White Blood Cell 6.3 10^3/uL (4.4-10.8)
[2020-01-05 18:51] LABS: Albumin 2.6 g/dL (3.4-5.0); BUN/Creatinine Ratio 21.6; Calcium 8.3 mg/dL (8.5-10.1); Potassium 3.7 mmol/L (3.5-5.1)
[2020-01-05 18:56] LABS: Bilirubin, Total 0.7 mg/dL (0.2-1.0); Total Protein 6.8 g/dL (6.4-8.2)
[2020-01-05 18:58] LABS: INR 1.13 (0.9-1.15); Partial Thromboplastin Time 28.3 sec (23.0-31.2)
[2020-01-05 19:13] LABS: CRP High Sensitivity 0.85 mg/dL (< 0.3)
--- NOTE | 2020-01-05 22:30 | NUR ---
Telemetry admit from ER BIPIN RAPHAEL admitted to Telemetry unit after SBAR not received. Patient oriented to Giovanna manriquez RN, unit, room, bed, and unit policies regarding patient care and visiting hours. Patient now on continuous telemetry monitoring, tele box #19 and telemetry reading on arrival to unit is SR in the 80s. Patient placed on bedside oxygen, weighed by bedscale and encouraged to call if they need something. All questions and concerns addressed, patient verbalized understanding.
[2020-01-05] MEDS: cefTRIAXone 1GM/50ML D5W 50 ML IV SCH (23:17)
--- NOTE | 2020-01-06 01:12 | NUR ---
Patient confused and not sure where he is at. Patient stating that he wants to go home and that we are trying to harm him. Patient alert and oriented to self. patient does not know why he is here.
--- NOTE | 2020-01-06 01:15 | NUR ---
paged, patient is having anxiety and trouble sleeping. Will continue to monitor patient.
--- NOTE | 2020-01-06 02:00 | NUR ---
[facility] inhouse Covid swab done and taken to lab.
[2020-01-06 03:01] VITALS: BP 128/54
[2020-01-06 05:00] VITALS: BP 122/72
--- NOTE | 2020-01-06 05:55 | NUR ---
Respiratory note: PT SEEN, ASLEEP, NO RESP DISTRESS NOTED. HR 74, RR16, SPO2 99% ON ROOM AIR.
[2020-01-06 06:26] LABS: Basophils # (auto) 0 10 ^3/uL (0-0.2); Basophils % (auto) 0.5 % (0.0-2.0); Eosinophils # (auto) 0 10 ^3/uL (0-0.8); Eosinophils % (auto) 0.1 % (0.0-7.0); Lymphocytes # (auto) 0.6 10 ^3/uL (0.4-5.4); Mean Corpuscular Hemoglobin 31.4 pg (28.0-32.0); Mean Corpuscular Hgb Conc. 32.7 g/dL (32.0-36.0); Mean Corpuscular Volume 96.2 fL (80.0-100.0); Monocytes # (auto) 0.1 10 ^3/uL (0-1.3); Monocytes % (auto) 1.2 % (0.0-12.0); Neutrophils # (auto) 4.6 10 ^3/uL (1.6-8.6); Neutrophils % (auto) 87.2 % (37.0-80.0); Nucleated Red Blood Cells % 0.1 %; Platelet Count (auto) 222 10^3/uL (140-450); Red Blood Cells 4.47 10^6/uL (4.5-5.90); Red Cell Distribution Width 17.9 % (11.8-14.3); White Blood Cell 5.3 10^3/uL (4.4-10.8)
[2020-01-06 06:47] LABS: Albumin 2.7 g/dL (3.4-5.0); Calcium 8.7 mg/dL (8.5-10.1); Potassium 3.8 mmol/L (3.5-5.1)
[2020-01-06 06:55] LABS: BUN/Creatinine Ratio 24.8; Bilirubin, Total 0.7 mg/dL (0.2-1.0); Total Protein 7.1 g/dL (6.4-8.2)
[2020-01-06 09:00] VITALS: BP 104/68
[2020-01-06] MEDS: cefTRIAXone 1GM/50ML D5W 50 ML IV SCH ×2 (09:58→21:48)
[2020-01-06] MEDS: PATIENTS OWN MEDICATION (Cholecalciferol (Vitamin D3) 1 TAB) PO SCH (09:58)
[2020-01-06] MEDS ORDERED: SOTALOL HCL 80 MG TAB PO SCH (10:00)
[2020-01-06] MEDS: POTASSIUM CHL 10 Meq TABLET PO SCH (10:00)
[2020-01-06] MEDS ORDERED: PATIENTS OWN MEDICATION (Potassium Chloride (Potassium Chloride ER) 10 MEQ) PO SCH (10:00)
[2020-01-06] MEDS ORDERED: PATIENTS OWN MEDICATION (Multiple Vitamin (Multivitamins) 1 CAP) PO SCH (10:00)
[2020-01-06] MEDS: APIXABAN 2.5 MG TAB PO SCH (10:00)
[2020-01-06] MEDS: AZITHROMYCIN 500MG/ 250ML 250 ML IV SCH (10:00)
[2020-01-06] MEDS: FUROSEMIDE 40 MG TAB PO SCH (10:01)
[2020-01-06] MEDS: MULTIPLE VITAMIN TAB PO SCH (10:01)
--- NOTE | 2020-01-06 10:55 | NUR ---
Dr. Angeles at bed side, new orders received, read back and verified.
--- NOTE | 2020-01-06 11:03 | NUR ---
Call out to [employer] [phone], per Ingrid salazar, will send message to [employer], and someone will be calling back.
[2020-01-06 13:00] VITALS: BP 113/73
--- NOTE | 2020-01-06 15:06 | NUR ---
GI Consultation Dr. Ellison updated on patients status via telephone. No new orders received.
--- NOTE | 2020-01-06 15:45 | NUR ---
Carlos Alberto with [employer] at bed side
--- NOTE | 2020-01-06 16:04 | NUR ---
Carlos Alberto updating MD Angeles with interrogation findings via telephone.
[2020-01-06 17:00] VITALS: BP 100/64
--- NOTE | 2020-01-06 17:59 | NUR ---
STANLEY Ge at bed side
--- NOTE | 2020-01-06 19:37 | NUR ---
Opening Shift Note Received report and assumed care of patient. Patient is awake and alert to self only. No signs or symptoms of distress noted. Instructed patient on plan of care and to call for assistance as needed. Sitter at bedside. Will continue to monitor.
[2020-01-06] MEDS: AMIODARONE HCL 200 MG TAB PO SCH (21:47)
[2020-01-06] MEDS: QUEtiapine FUMARATE 25 MG TAB PO SCH (21:48)
[2020-01-06 22:00] VITALS: BP 116/71
--- NOTE | 2020-01-07 00:22 | NUR ---
IV removal Patient accidently removed 20g IV to the Left AC. Catheter tip noted to be fully intact. Pressure dressing applied to site. NOTE: Inserted 20g IV to the right forearm. Patient tolerated well.
[2020-01-07 05:00] VITALS: BP 126/84
[2020-01-07 06:18] LABS: Urine Bacteria FEW /hpf (None Seen); Urine Blood Negative /uL (Negative); Urine Hyaline Cast MOD /lpf (0 - 2); Urine Specific Gravity 1.016 (1.001-1.035); Urine WBC 2 /hpf (0 - 3)
[2020-01-07] MEDS: LEVOTHYROXINE SODIUM 25 MCG TAB PO SCH (06:51)
[2020-01-07 08:00] VITALS: BP 117/81
--- NOTE | 2020-01-07 08:00 | NUR ---
Opening Shift Note Assumed care of patient, awake and alert to name. Patient has a sitter at bedside for safety. No S/S of distress or SOB, pain. Patient is on 4L NC. Instructed on POC and to call for assist PRN, will continue to monitor for changes Q1hr and PRN. Bed is locked, bed alarm on and in lowest position. Call light within reach.
[2020-01-07 08:17] LABS: Hemoglobin 14.4 g/dL (13.5-17.5); Mean Corpuscular Hemoglobin 31.3 pg (28.0-32.0); Mean Corpuscular Hgb Conc. 32.7 g/dL (32.0-36.0); Mean Corpuscular Volume 95.8 fL (80.0-100.0); Platelet Count (auto) 222 10^3/uL (140-450); Red Blood Cells 4.59 10^6/uL (4.5-5.90); Red Cell Distribution Width 19.2 % (11.8-14.3); White Blood Cell 11.1 10^3/uL (4.4-10.8)
[2020-01-07 08:30] LABS: Potassium 3.6 mmol/L (3.5-5.1)
[2020-01-07 08:38] LABS: Basophils % (manual) 0 (0.0-2.0); Blast Cells 0; Myelocytes % 0; Promyelocytes % 0; Reactive Lymphocytes 0
[2020-01-07 08:45] LABS: Albumin 2.9 g/dL (3.4-5.0); BUN/Creatinine Ratio 25.9; Bilirubin, Total 0.7 mg/dL (0.2-1.0); Calcium 8.9 mg/dL (8.5-10.1); Magnesium 2.6 mg/dL (1.6-2.6); Phosphorus 3.4 mg/dL (2.5-4.90); Total Protein 7.5 g/dL (6.4-8.2)
[2020-01-07 09:17] VITALS: BP 117/81
[2020-01-07] MEDS: cefTRIAXone 1GM/50ML D5W 50 ML IV SCH ×2 (09:28→21:46)
[2020-01-07] MEDS: AMIODARONE HCL 200 MG TAB PO SCH ×2 (09:29→21:47)
[2020-01-07] MEDS: PATIENTS OWN MEDICATION (Cholecalciferol (Vitamin D3) 1 TAB) PO SCH (09:29)
[2020-01-07] MEDS: AZITHROMYCIN 500MG/ 250ML 250 ML IV SCH (09:29)
[2020-01-07] MEDS: APIXABAN 2.5 MG TAB PO SCH (09:30)
[2020-01-07] MEDS: POTASSIUM CHL 10 Meq TABLET PO SCH (09:30)
[2020-01-07] MEDS: FUROSEMIDE 40 MG TAB PO SCH (09:31)
[2020-01-07] MEDS: MULTIPLE VITAMIN TAB PO SCH (09:31)
[2020-01-07] MEDS: QUEtiapine FUMARATE 25 MG TAB PO SCH ×2 (09:31→21:47)
[2020-01-07 12:39] LABS: Band Neutrophils % (manual) 3; Eosinophils % (manual) 2 (0-7); Lymphocytes % (manual) 5 (10.0-50.0); Metamyelocytes % 2; Monocytes % (manual) 4 (0-12)
[2020-01-07 13:00] VITALS: BP 101/63
[2020-01-07 17:00] VITALS: BP 113/73
[2020-01-07 21:56] VITALS: BP 96/47
[2020-01-08 05:16] VITALS: BP 123/81
[2020-01-08] MEDS: LEVOTHYROXINE SODIUM 25 MCG TAB PO SCH (06:29)
--- NOTE | 2020-01-08 07:45 | NUR ---
Opening Shift Note Assumed care of patient, asleep in bed. No S/S of distress/SOB or pain. Sitter at bedside for safety. Patient is on 4L NC. Will continue to monitor for changes Q1hr and PRN. Bed is locked and in lowest position. Call light within reach.
--- NOTE | 2020-01-08 09:03 | NUR ---
Assessment Patient is a 74 year old male, patient is unable to participate with SW for initial assessment. SW called [facility] for initial assessment. Per , patient is alert and oriented, per patient cognitive abilities are intact. Per , patient can do all ADL's and ambulates independently. Per , patient lives at home with her, patient will return home post discharge. Per , patient receives social security and pension as income. Per , patient does not have advance directive completed. Discharge planning: Patient will return home post discharge, patient will follow up with PCP post discharge. SW will provide Advance Directive forms to patient. There are no other discharge planning to address at the moment. Addendum: 01/08/20 at 0908 by DANY DUVALL Amended: Links added.
[2020-01-08] MEDS: PATIENTS OWN MEDICATION (Cholecalciferol (Vitamin D3) 1 TAB) PO SCH (10:00)
[2020-01-08] MEDS: cefTRIAXone 1GM/50ML D5W 50 ML IV SCH ×2 (10:10→22:04)
[2020-01-08] MEDS: AZITHROMYCIN 500MG/ 250ML 250 ML IV SCH (10:10)
[2020-01-08] MEDS: CARVEDILOL 3.125 MG TAB PO SCH ×2 (10:12→22:05)
[2020-01-08] MEDS: AMIODARONE HCL 200 MG TAB PO SCH ×3 (10:12→22:04)
[2020-01-08] MEDS: POTASSIUM CHL 10 Meq TABLET PO SCH (10:12)
[2020-01-08] MEDS: APIXABAN 2.5 MG TAB PO SCH (10:12)
[2020-01-08] MEDS: FUROSEMIDE 40 MG TAB PO SCH (10:13)
[2020-01-08] MEDS: MULTIPLE VITAMIN TAB PO SCH (10:13)
[2020-01-08] MEDS: QUEtiapine FUMARATE 25 MG TAB PO SCH ×2 (10:13→22:04)
--- NOTE | 2020-01-08 12:00 | NUR ---
STANLEY MARIE AT BEDSIDE FOR POC. INFORMED STANLEY MARIE PATIENT FAMILY WOULD LIKE AN UPDATE ON POC. PATIENT CONTINUES TO BE CONFUSED. STANLEY MARIE WILL CALL FAMILY. STANLEY MARIE WILL LIKE DR. RAPHAEL TO ASSESS RIGHT SIDE CHEST TUBE IN PLACE PRIOR TO ADMISSION DUE TO PLEURAL EFFUSION. WILL NOTIFY DR. RAPHAEL. WILL AWAIT NEW ORDERS. WILL CONTINUE TO MONITOR PATIENT.
--- NOTE | 2020-01-08 16:10 | NUR ---
Reassessment Per spouse, patient has home equipment walker, wheelchair, cane, and home oxygen. Patient has a chest tube, if discharge with chest tube, patient would benefit from home health care for chest tube.
--- NOTE | 2020-01-08 17:30 | NUR ---
DR. NOGUEIRA PAGED DR. NOGUEIRA MRI MANAGER REGARDING EKG CHANGES SEEN. EKG STRIPS FILLED IN CHART. NEW ORDERS RECEIVED. WILL CONTINUE WITH POC AND CONTINUE TO MONITOR PATIENT.
--- NOTE | 2020-01-08 18:40 | NUR ---
DR. DONAVON RAPHAEL AT BEDSIDE FOR POC REGARDING RIGHT PLEURAL EFFUSION AND RIGHT PLEURAL CATHETER. PER DR. RAPHAEL RIGHT PLEURAL CATHETER CAN BE DRAINED. DRESSING CHANGED ON PLEURAL CATHETER USING STERILE TECHNIQUE. SKIN SURROUNDING CATHETER IS DRY AND INTACT, NO SIGNS OF INFECTION. WILL AWAIT KIT TO DRAIN CATHETER. WILL CONTINUE TO MONITOR PATIENT.
[2020-01-08 20:27] LABS: Albumin 2.6 g/dL (3.4-5.0); Calcium 8.2 mg/dL (8.5-10.1); Magnesium 2.6 mg/dL (1.6-2.6); Potassium 3.8 mmol/L (3.5-5.1)
[2020-01-08 20:36] LABS: BUN/Creatinine Ratio 26.4; Bilirubin, Total 0.5 mg/dL (0.2-1.0); Total Protein 6.5 g/dL (6.4-8.2)
[2020-01-09] MEDS: LEVOTHYROXINE SODIUM 25 MCG TAB PO SCH (06:16)
--- NOTE | 2020-01-09 07:45 | NUR ---
AT BEDSIDE DR SMALLS AT BEDSIDE EVALUATING PATIENT. PER DR SMALLS PATIENT SHOULD STAY ONE MORE DAY D/T RUN OF V-TACH. WILL CONTINUE CARE.
--- NOTE | 2020-01-09 08:00 | NUR ---
OPENING SHIFT NOTE ASSUMED CARE OF PATIENT AWAKE AND ALERT TO SELF. NO S/S OF DISTRESS NOTED OR COMPLAINTS OF PAIN. PATIENT'S OXYGEN TITRATED FROM 4L NC TO 2L, TOLERATING WELL WITH AN OXYGEN SATURATION OF 96%. PATIENT UPDATED ON POC FOR THE DAY AND ALL QUESTIONS ANSWERED. BED IS IN LOWEST, LOCKED POSITION WITH SIDE RAILS UP X2, CALL LIGHT WITHIN REACH, AND SITTER AT BEDSIDE FOR SAFETY. WILL CONTINUE TO MONITOR Q1H AND PRN.
[2020-01-09 09:00] VITALS: BP_SYST 111; BP_SYST 121; BP_DIAS 63; BP_DIAS 76
[2020-01-09] MEDS: AZITHROMYCIN 500MG/ 250ML 250 ML IV SCH (10:13)
[2020-01-09] MEDS: cefTRIAXone 1GM/50ML D5W 50 ML IV SCH (10:13)
[2020-01-09] MEDS: APIXABAN 2.5 MG TAB PO SCH (10:14)
[2020-01-09] MEDS: CARVEDILOL 3.125 MG TAB PO SCH ×2 (10:14→21:17)
[2020-01-09] MEDS: AMIODARONE HCL 200 MG TAB PO SCH ×2 (10:14→21:14)
[2020-01-09] MEDS: CHOLECALCIFEROL (VITD3) 2,000 UNIT CAP PO SCH (10:15)
[2020-01-09] MEDS: POTASSIUM CHL 10 Meq TABLET PO SCH (10:15)
[2020-01-09] MEDS: QUEtiapine FUMARATE 25 MG TAB PO SCH ×2 (10:15→21:15)
[2020-01-09] MEDS: MULTIPLE VITAMIN TAB PO SCH (10:15)
[2020-01-09] MEDS: FUROSEMIDE 40 MG TAB PO SCH (10:15)
--- NOTE | 2020-01-09 12:27 | NUR ---
1215 01/09/20 - Faxed to [facility] at [phone], face sheet, order to resume home health for drainage of Pleurx and safety eval. Contacted [facility] at [phone] and spoke with qualitative field coordinator who stated they will accept patient back for services when discharged home.
--- NOTE | 2020-01-09 12:33 | NUR ---
BEHAVIOR PATIENT IS BECOMING AGITATED AND HITTING HIS BEDSIDE RAIL. PATIENT STATES "I WANT TO GO OUTSIDE AND . I'M GOING TO COMMIT SUICIDE, WHY THE FUCK DO I NEED TO BE ALIVE?" PATIENT'S THOUGHTS REDIRECTED AND COMFORT GIVEN. WILL NOTIFY MD AND CONTINUE CARE.
[2020-01-09 13:00] VITALS: BP 113/63
--- NOTE | 2020-01-09 14:47 | NUR ---
Nutrition Assessment Notes Please see attached link for complete assessment Est energy needs BW 72k-2160kcal (25-30 kcal/kg BW), Est protein needs 57-72g (0.8-1g/kg BW r/t elev RFT CKD). Will monitor and reassess prn. Addendum: 01/09/20 at [address] Amended: Links added.
--- NOTE | 2020-01-09 15:07 | NUR ---
Patient does not have discharge orders, confirm by Ita SNYDER.
--- NOTE | 2020-01-09 16:10 | NUR ---
PLEURX DRAINAGE PATIENT HAVING SOME DISCOMFORT AT HIS RIGHT SIDE. PLEURX DRAINAGE INITIATION USING STERILE TECHNIQUE. 1000ML OF CLEAR, YELLOW FLUID ASPIRATED. PATIENT TOLERATED WELL. VS AT START: 122/72 AND HR 76 VS AT END: 108/67 AND HR 72. WILL CONTINUE CARE.
--- NOTE | 2020-01-09 16:16 | NUR ---
Reassessment Based on she has additional nurse to assist his care, Sharon casas [facility] has accepted him back, and will resume care once patient has return home post [facility] from [facility]. Addendum: 01/09/20 at 1619 by DANY DUVALL Amended: Links added.
[2020-01-09 17:00] VITALS: BP 111/60
--- NOTE | 2020-01-09 18:20 | NUR ---
CLAM BED LABORER AT BEDSIDE CLAM BED LABORER FRANK AT BEDSIDE EVALUATING PATIENT.
[2020-01-09 22:00] VITALS: BP 104/68
[2020-01-10 05:00] VITALS: BP 112/75
[2020-01-10] MEDS: LEVOTHYROXINE SODIUM 25 MCG TAB PO SCH (06:35)
--- NOTE | 2020-01-10 08:43 | NUR ---
Dr. Pang at nurses station Discussing POC with this nurse. Patient may be discharged tomorrow from cardio standpoint.
[2020-01-10 09:20] VITALS: BP 98/63
[2020-01-10] MEDS: FUROSEMIDE 40 MG TAB PO SCH (10:00)
[2020-01-10] MEDS: CARVEDILOL 12.5 MG TAB PO SCH ×2 (10:00→21:58)
[2020-01-10] MEDS: POTASSIUM CHL 10 Meq TABLET PO SCH (10:41)
[2020-01-10] MEDS: QUEtiapine FUMARATE 25 MG TAB PO SCH ×2 (10:41→22:00)
[2020-01-10] MEDS: AMIODARONE HCL 200 MG TAB PO SCH ×2 (10:41→22:00)
[2020-01-10] MEDS: MULTIPLE VITAMIN TAB PO SCH (10:41)
[2020-01-10] MEDS: CHOLECALCIFEROL (VITD3) 2,000 UNIT CAP PO SCH (10:41)
[2020-01-10] MEDS: cefTRIAXone 1GM/50ML D5W 50 ML IV SCH (10:41)
[2020-01-10] MEDS: APIXABAN 2.5 MG TAB PO SCH (10:41)
[2020-01-10] MEDS: AZITHROMYCIN 500MG/ 250ML 250 ML IV SCH (11:50)
[2020-01-10 13:00] VITALS: BP 98/58
[2020-01-10 17:00] VITALS: BP 92/53
[2020-01-10 22:36] VITALS: BP 102/61
[2020-01-11 04:39] VITALS: BP 117/75
[2020-01-11] MEDS: LEVOTHYROXINE SODIUM 25 MCG TAB PO SCH (06:59)
[2020-01-11 08:00] VITALS: BP 100/55
--- NOTE | 2020-01-11 08:05 | NUR ---
Dr Pang bedside with patient
[2020-01-11 09:00] VITALS: BP 100/55
[2020-01-11] MEDS ORDERED: AZITHROMYCIN 250 MG TAB PO SCH (10:00)
[2020-01-11] MEDS: CARVEDILOL 12.5 MG TAB PO SCH (10:00)
[2020-01-11] MEDS: cefTRIAXone 1GM/50ML D5W 50 ML IV SCH (10:23)
[2020-01-11] MEDS: AMIODARONE HCL 200 MG TAB PO SCH (10:24)
[2020-01-11] MEDS: APIXABAN 2.5 MG TAB PO SCH (10:24)
[2020-01-11] MEDS: POTASSIUM CHL 10 Meq TABLET PO SCH (10:24)
[2020-01-11] MEDS: QUEtiapine FUMARATE 25 MG TAB PO SCH (10:25)
[2020-01-11] MEDS: CHOLECALCIFEROL (VITD3) 2,000 UNIT CAP PO SCH (10:25)
[2020-01-11] MEDS: FUROSEMIDE 40 MG TAB PO SCH (10:25)
[2020-01-11] MEDS: MULTIPLE VITAMIN TAB PO SCH (10:25)
[2020-01-11 12:34] VITALS: BP 111/69
--- NOTE | 2020-01-11 12:45 | NUR ---
Patient moved from 244-8 to 249B. All belongings moved with patient
[2020-01-11 15:57] VITALS: BP 111/69
--- NOTE | 2020-01-11 16:15 | NUR ---
Patient does not have portable oxygen to get home from hospital. Spoke with Eugenia in who will notify [facility] for oxygen delivery
--- NOTE | 2020-01-11 16:21 | NUR ---
Per Geno, from [employer] patient has oxygen equipment at home, per Geno, patient has additional tank to satisfy 4LNC
[2020-01-11 17:00] VITALS: BP 102/69
--- NOTE | 2020-01-11 17:02 | NUR ---
Per Gavino, from [facility], SW notify [facility] that patient need oxygen to delivered to bedside. Per Gavino, oxygen will be delivered between 5-7 pm tonight.
--- NOTE | 2020-01-11 17:30 | NUR ---
Informed patients family that oxygen will be delivered to the hospital between 5-7 and patient will be ready to discharge once delivered
--- NOTE | 2020-01-11 19:03 | NUR ---
Oxygen delivered bedside
--- NOTE | 2020-01-11 20:25 | NUR ---
Discharge Note Patient's IV removed. Tele box discontinued and sent back. Patient's discharge instructions provided, personal belongings and oxygen sent with him. Patient wheeled out without incident.
== END 2020-01-11 20:25 | disposition home health service (06) | DRG 177 ==
LOC: EDBD 15:10 → EDUNIT# 15:10 → ER 15:22 → TELE 17:26 → TELE-EAST 22:45 → TELE-E-ADS 01-06 14:23 → TELE-EAST 01-11 14:05
PROVIDERS: ADMIT Specialist; ATTEND Specialist
PROC: 4B02XSZ Measurement of Cardiac Pacemaker, External Approach (ICD-10-PCS; principal; 2020-01-06)
DX: U07.1 COVID-19 (principal); J12.89 Other viral pneumonia; J96.01 Acute respiratory failure with hypoxia; I47.2 Ventricular tachycardia; I20.0 Unstable angina; N17.9 Acute kidney failure, unspecified; I13.0 Hypertensive heart and chronic kidney disease with heart failure and stage 1 through stage 4 chronic kidney disease, or unspecified chronic kidney disease; J91.8 Pleural effusion in other conditions classified elsewhere; I50.22 Chronic systolic (congestive) heart failure; K74.60 Unspecified cirrhosis of liver; N18.30 Chronic kidney disease, stage 3 unspecified; R55 Syncope and collapse; I73.9 Peripheral vascular disease, unspecified; I48.0 Paroxysmal atrial fibrillation; F03.90 Unspecified dementia, unspecified severity, without behavioral disturbance, psychotic disturbance, mood disturbance, and anxiety; Z79.899 Other long term (current) drug therapy; I25.2 Old myocardial infarction; Z79.01 Long term (current) use of anticoagulants; Z82.49 Family history of ischemic heart disease and other diseases of the circulatory system; Z87.891 Personal history of nicotine dependence; Z95.0 Presence of cardiac pacemaker; Z95.1 Presence of aortocoronary bypass graft
CPT/HCPCS: 36415; 70450; 71045; 76700; 80053; 80061; 81001; 82728; 83615; 83735; 83880; 84100; 84443; 84484; 85007; 85025; 85027; 85379; 85610; 85730; 86141; 87081; 87086; 87426; 93005; 96365; 96375; G0378; J0696; J1100

== ENCOUNTER 2020-02-18 09:40 | Inpatient (IN) | payer MEDICARE, OTHER ==
[~2020-02-18] VITALS: Ht 170.2 cm; Wt 58.0 kg
[~2020-02-18 09:40] MED LIST changes: -SOTA80TA20 PO
[2020-02-18 10:04] LABS: Basophils # (auto) 0.1 10 ^3/uL (0-0.2); Basophils % (auto) 1.4 % (0.0-2.0); Eosinophils # (auto) 0.2 10 ^3/uL (0-0.8); Eosinophils % (auto) 3.4 % (0.0-7.0); Hematocrit 37.8 % (41.0-53.0); Lymphocytes # (auto) 0.7 10 ^3/uL (0.4-5.4); Lymphocytes % (auto) 13.9 % (10.0-50.0); Mean Corpuscular Hemoglobin 33.4 pg (28.0-32.0); Mean Corpuscular Hgb Conc. 34.4 g/dL (32.0-36.0); Mean Corpuscular Volume 97.2 fL (80.0-100.0); Monocytes # (auto) 0.6 10 ^3/uL (0-1.3); Monocytes % (auto) 11.1 % (0.0-12.0); Neutrophils # (auto) 3.8 10 ^3/uL (1.6-8.6); Neutrophils % (auto) 70.2 % (37.0-80.0); Platelet Count (auto) 224 10^3/uL (140-450); Red Blood Cells 3.89 10^6/uL (4.5-5.90); Red Cell Distribution Width 18.4 % (11.8-14.3); White Blood Cell 5.4 10^3/uL (4.4-10.8)
[2020-02-18 10:21] LABS: INR 1.14 (0.9-1.15); Partial Thromboplastin Time 30.5 sec (23.0-31.2)
[2020-02-18 10:40] LABS: Albumin 3.3 g/dL (3.4-5.0); BUN/Creatinine Ratio 18.8; Calcium 8.9 mg/dL (8.5-10.1); Potassium 3.7 mmol/L (3.5-5.1)
[2020-02-18 10:45] LABS: Bilirubin, Total 0.7 mg/dL (0.2-1.0); Total Protein 7.9 g/dL (6.4-8.2)
[2020-02-18] MEDS ORDERED: cefTRIAXone 1GM/50ML D5W 50 ML IV ONE ×2 (10:45→11:00)
[2020-02-18] MEDS ORDERED: FUROSEMIDE 40 MG/4 ML VIAL IV ONE (11:00)
[2020-02-18 12:40] LABS: CRP High Sensitivity 0.97 mg/dL (< 0.3)
[2020-02-18] MEDS ORDERED: AZITHROMYCIN 500MG/ 250ML 250 ML IV ONE (13:15)
[2020-02-18] MEDS ORDERED: ONDANSETRON HCL 4 MG/2 ML VIAL IV PRN (13:15)
[2020-02-18] MEDS ORDERED: NITROGLYCERIN 0.4 MG SL TAB SL PRN (13:15)
[2020-02-18] MEDS ORDERED: MORPHINE SULF INJ 2 MG/ML SYRINGE 1ML IV PRN (13:15)
[2020-02-18] MEDS ORDERED: SODIUM CHLORIDE 0.9% 1,000 ML IV ONE (13:15)
[2020-02-18 14:35] LABS: Urine WBC None Seen /hpf (0 - 3)
[2020-02-18 14:48] LABS: Urine Bacteria NONE SEEN /hpf (None Seen); Urine Blood Negative /uL (Negative); Urine Specific Gravity 1.006 (1.001-1.035)
[2020-02-18] MEDS ORDERED: HYDROcodone-ACET 5/325MG TAB PO PRN (18:15)
[2020-02-18] MEDS ORDERED: ACETAMINOPHEN 500 MG TAB PO PRN (18:15)
[2020-02-18] MEDS ORDERED: hydrALAZINE HCL 20 MG/ML VL IV PRN (18:15)
[2020-02-18] MEDS ORDERED: SOTALOL HCL 80 MG TAB PO SCH (22:00)
[2020-02-19] MEDS: AZITHROMYCIN 500MG/ 250ML 250 ML IV SCH (07:28)
[2020-02-19] MEDS ORDERED: LORazepam 2MG/ML-1ML VIAL IM ONE (07:30)
[2020-02-19] MEDS ORDERED: diphenhdrAMINE HCL 50 MG/1 ML VL ONE (08:10)
[2020-02-19 09:22] LABS: Basophils # (auto) 0.2 10 ^3/uL (0-0.2); Basophils % (auto) 2.6 % (0.0-2.0); Eosinophils # (auto) 0.1 10 ^3/uL (0-0.8); Eosinophils % (auto) 2.3 % (0.0-7.0); Hematocrit 40.5 % (41.0-53.0); Hemoglobin 13.5 g/dL (13.5-17.5); Lymphocytes # (auto) 0.6 10 ^3/uL (0.4-5.4); Lymphocytes % (auto) 9.8 % (10.0-50.0); Mean Corpuscular Hemoglobin 32.6 pg (28.0-32.0); Mean Corpuscular Hgb Conc. 33.4 g/dL (32.0-36.0); Mean Corpuscular Volume 97.5 fL (80.0-100.0); Monocytes # (auto) 0.7 10 ^3/uL (0-1.3); Neutrophils # (auto) 4.8 10 ^3/uL (1.6-8.6); Neutrophils % (auto) 74.3 % (37.0-80.0); Platelet Count (auto) 258 10^3/uL (140-450); Red Blood Cells 4.16 10^6/uL (4.5-5.90); Red Cell Distribution Width 17.9 % (11.8-14.3); White Blood Cell 6.5 10^3/uL (4.4-10.8)
[2020-02-19] MEDS: AMIODARONE HCL 200 MG TAB PO SCH ×2 (09:27→20:41)
[2020-02-19] MEDS: PANTOPRAZOLE 40 MG TAB PO SCH (09:27)
[2020-02-19] MEDS: POTASSIUM CHL 10 Meq TABLET PO SCH (09:27)
[2020-02-19] MEDS: LEVOTHYROXINE SODIUM 25 MCG TAB PO SCH (09:27)
[2020-02-19 09:44] LABS: Calcium 8.9 mg/dL (8.5-10.1); Magnesium 2.7 mg/dL (1.6-2.6); Potassium 3.8 mmol/L (3.5-5.1)
[2020-02-19 09:48] LABS: Bilirubin, Total 0.9 mg/dL (0.2-1.0); Total Protein 7.4 g/dL (6.4-8.2)
[2020-02-19] MEDS ORDERED: FUROSEMIDE 40 MG TAB PO SCH (10:00)
[2020-02-19] MEDS ORDERED: TAM04C PO (10:59)
[2020-02-19] MEDS ORDERED: QUET25TA46 PO (10:59)
[2020-02-19] MEDS ORDERED: LEVO50TA7 PO (11:02)
[2020-02-19] MEDS ORDERED: SOTA80TA7 PO (11:04)
[2020-02-19] MEDS ORDERED: LACTULOSE 20Gm/30ML SOLN PO PRN (14:45)
[2020-02-19] MEDS: FUROSEMIDE 40 MG/4 ML VIAL IV SCH (18:16)
[2020-02-19] MEDS: QUEtiapine FUMARATE 25 MG TAB PO SCH (20:41)
[2020-02-19] MEDS: LORazepam 0.5 MG TAB PO PRN (20:41)
[2020-02-19] MEDS ORDERED: diphenhdrAMINE HCL 50 MG/1 ML VL IV ONE (20:45)
[2020-02-19] MEDS ORDERED: LORazepam 2MG/ML-1ML VIAL IV ONE (20:45)
[2020-02-20] MEDS: FUROSEMIDE 40 MG/4 ML VIAL IV SCH ×2 (06:35→10:22)
[2020-02-20] MEDS: LEVOTHYROXINE SODIUM 25 MCG TAB PO SCH (07:00)
[2020-02-20 07:26] LABS: Basophils # (auto) 0.1 10 ^3/uL (0-0.2); Basophils % (auto) 0.6 % (0.0-2.0); Eosinophils # (auto) 0 10 ^3/uL (0-0.8); Eosinophils % (auto) 0.1 % (0.0-7.0); Hematocrit 38.2 % (41.0-53.0); Hemoglobin 13.4 g/dL (13.5-17.5); Lymphocytes # (auto) 0.8 10 ^3/uL (0.4-5.4); Lymphocytes % (auto) 8.5 % (10.0-50.0); Mean Corpuscular Hemoglobin 33.8 pg (28.0-32.0); Mean Corpuscular Hgb Conc. 35.1 g/dL (32.0-36.0); Mean Corpuscular Volume 96.2 fL (80.0-100.0); Monocytes # (auto) 0.9 10 ^3/uL (0-1.3); Monocytes % (auto) 9.6 % (0.0-12.0); Neutrophils # (auto) 7.3 10 ^3/uL (1.6-8.6); Neutrophils % (auto) 81.2 % (37.0-80.0); Nucleated Red Blood Cells % 0.1 %; Platelet Count (auto) 215 10^3/uL (140-450); Red Blood Cells 3.97 10^6/uL (4.5-5.90); Red Cell Distribution Width 17.8 % (11.8-14.3)
[2020-02-20 07:34] LABS: Potassium 3.7 mmol/L (3.5-5.1)
[2020-02-20 07:51] LABS: Albumin 3.3 g/dL (3.4-5.0); BUN/Creatinine Ratio 18.3; Bilirubin, Total 1.2 mg/dL (0.2-1.0); Calcium 8.9 mg/dL (8.5-10.1); Magnesium 2.5 mg/dL (1.6-2.6); Total Protein 7.5 g/dL (6.4-8.2)
[2020-02-20] MEDS: QUEtiapine FUMARATE 25 MG TAB PO SCH ×2 (10:00→22:26)
[2020-02-20] MEDS: DOCUSATE SOD 100 MG CAP PO SCH ×2 (10:00→17:04)
[2020-02-20] MEDS: PANTOPRAZOLE 40 MG TAB PO SCH ×2 (10:00→17:04)
[2020-02-20] MEDS: POTASSIUM CHL 10 Meq TABLET PO SCH ×2 (10:00→17:04)
[2020-02-20] MEDS: AMIODARONE HCL 200 MG TAB PO SCH ×3 (10:00→22:26)
[2020-02-20] MEDS: AZITHROMYCIN 500MG/ 250ML 250 ML IV SCH (10:10)
[2020-02-20] MEDS: LACTULOSE 20Gm/30ML SOLN PO SCH ×2 (12:00→17:03)
[2020-02-21] MEDS: LACTULOSE 20Gm/30ML SOLN PO SCH ×3 (00:24→12:00)
[2020-02-21] MEDS: LEVOTHYROXINE SODIUM 25 MCG TAB PO SCH (07:00)
[2020-02-21 07:35] LABS: Basophils # (auto) 0.1 10 ^3/uL (0-0.2); Basophils % (auto) 0.7 % (0.0-2.0); Eosinophils # (auto) 0.1 10 ^3/uL (0-0.8); Eosinophils % (auto) 1.4 % (0.0-7.0); Hematocrit 41.2 % (41.0-53.0); Hemoglobin 14.1 g/dL (13.5-17.5); Lymphocytes # (auto) 0.6 10 ^3/uL (0.4-5.4); Lymphocytes % (auto) 6.2 % (10.0-50.0); Mean Corpuscular Hgb Conc. 34.1 g/dL (32.0-36.0); Mean Corpuscular Volume 96.8 fL (80.0-100.0); Monocytes % (auto) 11.1 % (0.0-12.0); Neutrophils # (auto) 7.4 10 ^3/uL (1.6-8.6); Neutrophils % (auto) 80.6 % (37.0-80.0); Platelet Count (auto) 209 10^3/uL (140-450); Red Blood Cells 4.25 10^6/uL (4.5-5.90); Red Cell Distribution Width 17.4 % (11.8-14.3); White Blood Cell 9.2 10^3/uL (4.4-10.8)
[2020-02-21] MEDS: LORazepam 0.5 MG TAB PO PRN (07:54)
[2020-02-21 07:58] LABS: Albumin 3.4 g/dL (3.4-5.0); Magnesium 2.4 mg/dL (1.6-2.6); Potassium 3.2 mmol/L (3.5-5.1)
[2020-02-21 08:02] LABS: BUN/Creatinine Ratio 17.6; Bilirubin, Total 1.5 mg/dL (0.2-1.0); Total Protein 7.6 g/dL (6.4-8.2)
[2020-02-21] MEDS: FUROSEMIDE 40 MG/4 ML VIAL IV SCH (09:30)
[2020-02-21] MEDS: AZITHROMYCIN 500MG/ 250ML 250 ML IV SCH (09:30)
[2020-02-21] MEDS: PANTOPRAZOLE 40 MG TAB PO SCH (09:31)
[2020-02-21] MEDS: AMIODARONE HCL 200 MG TAB PO SCH ×2 (09:31→21:55)
[2020-02-21] MEDS: POTASSIUM CHL 10 Meq TABLET PO SCH (09:31)
[2020-02-21] MEDS: DOCUSATE SOD 100 MG CAP PO SCH (09:31)
[2020-02-21] MEDS: QUEtiapine FUMARATE 25 MG TAB PO SCH ×2 (09:32→21:55)
[2020-02-22] MEDS: LEVOTHYROXINE SODIUM 25 MCG TAB PO SCH (06:30)
[2020-02-22] MEDS ORDERED: POTASSIUM EFFERVESENT TAB 25 MEQ ONE (07:29)
[2020-02-22] MEDS: QUEtiapine FUMARATE 25 MG TAB PO SCH ×2 (07:33→21:27)
[2020-02-22] MEDS: DOCUSATE SOD 100 MG CAP PO SCH (07:33)
[2020-02-22] MEDS: POTASSIUM CHL 10 Meq TABLET PO SCH (07:33)
[2020-02-22] MEDS: AMIODARONE HCL 200 MG TAB PO SCH ×2 (07:33→21:27)
[2020-02-22] MEDS: AZITHROMYCIN 500MG/ 250ML 250 ML IV SCH (07:33)
[2020-02-22] MEDS: PANTOPRAZOLE 40 MG TAB PO SCH (07:33)
[2020-02-22] MEDS ORDERED: POTASSIUM EFFERVESENT TAB 25 MEQ PO ONE (07:45)
[2020-02-22 09:48] LABS: Basophils # (auto) 0 10 ^3/uL (0-0.2); Basophils % (auto) 0.4 % (0.0-2.0); Eosinophils # (auto) 0.1 10 ^3/uL (0-0.8); Eosinophils % (auto) 1.2 % (0.0-7.0); Hematocrit 42.5 % (41.0-53.0); Hemoglobin 14.3 g/dL (13.5-17.5); Lymphocytes # (auto) 0.5 10 ^3/uL (0.4-5.4); Lymphocytes % (auto) 6.1 % (10.0-50.0); Mean Corpuscular Hgb Conc. 33.7 g/dL (32.0-36.0); Mean Corpuscular Volume 97.9 fL (80.0-100.0); Monocytes # (auto) 1.1 10 ^3/uL (0-1.3); Monocytes % (auto) 12.7 % (0.0-12.0); Neutrophils # (auto) 6.9 10 ^3/uL (1.6-8.6); Neutrophils % (auto) 79.6 % (37.0-80.0); Nucleated Red Blood Cells % 0.1 %; Platelet Count (auto) 189 10^3/uL (140-450); Red Blood Cells 4.34 10^6/uL (4.5-5.90); Red Cell Distribution Width 17.6 % (11.8-14.3); White Blood Cell 8.7 10^3/uL (4.4-10.8)
[2020-02-22 10:22] LABS: Albumin 2.8 g/dL (3.4-5.0); Calcium 8.7 mg/dL (8.5-10.1); Potassium 4.4 mmol/L (3.5-5.1)
[2020-02-22 10:26] LABS: BUN/Creatinine Ratio 19.7; Bilirubin, Total 1.3 mg/dL (0.2-1.0); Total Protein 7.3 g/dL (6.4-8.2)
[2020-02-22] MEDS: FAMOTIDINE 20 MG TAB PO SCH (21:27)
[2020-02-23 05:51] VITALS: BP 114/72
[2020-02-23] MEDS: LEVOTHYROXINE SODIUM 25 MCG TAB PO SCH (06:30)
[2020-02-23 08:00] VITALS: BP 111/71
[2020-02-23] MEDS: AMIODARONE HCL 200 MG TAB PO SCH ×3 (10:00→22:00)
[2020-02-23] MEDS: THIAMINE HCL 100 MG TAB PO SCH ×2 (10:00→10:36)
[2020-02-23] MEDS: FOLIC ACID 1 MG TAB PO SCH ×2 (10:00→10:35)
[2020-02-23] MEDS: POTASSIUM CHL 10 Meq TABLET PO SCH ×2 (10:00→10:36)
[2020-02-23] MEDS: DOCUSATE SOD 100 MG CAP PO SCH ×2 (10:00→10:36)
[2020-02-23] MEDS: PANTOPRAZOLE 40 MG TAB PO SCH ×2 (10:00→10:36)
[2020-02-23] MEDS: AZITHROMYCIN 500MG/ 250ML 250 ML IV SCH (10:35)
[2020-02-23] MEDS: QUEtiapine FUMARATE 25 MG TAB PO SCH ×2 (10:37→22:00)
[2020-02-23 16:18] VITALS: BP 112/56
[2020-02-23] MEDS: LACTULOSE 20Gm/30ML SOLN PO SCH (22:00)
[2020-02-23] MEDS: FAMOTIDINE 20 MG TAB PO SCH (22:00)
[2020-02-23] MEDS: APIXABAN 2.5 MG TAB PO SCH (22:00)
[2020-02-24] MEDS: LEVOTHYROXINE SODIUM 25 MCG TAB PO SCH (06:30)
[2020-02-24 08:00] VITALS: BP 133/76
[2020-02-24] MEDS: FOLIC ACID 1 MG TAB PO SCH (10:00)
[2020-02-24] MEDS: THIAMINE HCL 100 MG TAB PO SCH (10:00)
[2020-02-24] MEDS: PANTOPRAZOLE 40 MG TAB PO SCH (10:00)
[2020-02-24] MEDS: LACTULOSE 20Gm/30ML SOLN PO SCH ×2 (10:00→22:00)
[2020-02-24] MEDS: DOCUSATE SOD 100 MG CAP PO SCH (10:00)
[2020-02-24] MEDS: POTASSIUM CHL 10 Meq TABLET PO SCH (10:00)
[2020-02-24] MEDS: AZITHROMYCIN 500MG/ 250ML 250 ML IV SCH (10:57)
[2020-02-24] MEDS: AMIODARONE HCL 200 MG TAB PO SCH ×2 (10:58→22:00)
[2020-02-24] MEDS: APIXABAN 2.5 MG TAB PO SCH ×2 (10:58→22:00)
[2020-02-24 10:59] VITALS: BP 133/76
[2020-02-24] MEDS: QUEtiapine FUMARATE 25 MG TAB PO SCH ×2 (10:59→22:00)
[2020-02-24 16:10] VITALS: BP 109/70
[2020-02-24] MEDS ORDERED: LORazepam 2MG/ML-1ML VIAL IV ONE (20:45)
[2020-02-24] MEDS ORDERED: HALOPERIDOL LACTATE 5 MG/ML INJ VIAL IM ONE (21:45)
[2020-02-24 22:00] VITALS: BP 104/52
[2020-02-24] MEDS: FAMOTIDINE 20 MG TAB PO SCH (22:00)
[2020-02-25 05:05] VITALS: BP 109/64
[2020-02-25] MEDS: LEVOTHYROXINE SODIUM 25 MCG TAB PO SCH (06:25)
[2020-02-25 07:44] VITALS: BP 103/64
[2020-02-25] MEDS: POTASSIUM CHL 10 Meq TABLET PO SCH (10:00)
[2020-02-25] MEDS: PANTOPRAZOLE 40 MG TAB PO SCH (10:00)
[2020-02-25] MEDS: LACTULOSE 20Gm/30ML SOLN PO SCH (10:00)
[2020-02-25] MEDS: AMIODARONE HCL 200 MG TAB PO SCH (10:00)
[2020-02-25] MEDS: AZITHROMYCIN 500MG/ 250ML 250 ML IV SCH (10:00)
[2020-02-25] MEDS: FOLIC ACID 1 MG TAB PO SCH (10:00)
[2020-02-25] MEDS: THIAMINE HCL 100 MG TAB PO SCH (10:00)
[2020-02-25] MEDS: DOCUSATE SOD 100 MG CAP PO SCH (10:00)
[2020-02-25] MEDS: QUEtiapine FUMARATE 25 MG TAB PO SCH (10:00)
[2020-02-25] MEDS: APIXABAN 2.5 MG TAB PO SCH (10:00)
[2020-02-25 10:23] LABS: Hepatitis B Surface Antibody Negative
[2020-02-25 10:57] LABS: Hepatitis A Total Antibody Positive
[2020-02-25 11:17] LABS: Hepatitis B Core Total AB Negative; Hepatitis B Surface Antigen Negative (Negative); Hepatitis C Antibody Negative (Negative)
[2020-02-25 15:36] VITALS: BP 110/68
[2020-02-25 18:17] VITALS: BP 110/68
== END 2020-02-25 19:29 | disposition home health service (06) | DRG 186 ==
LOC: EDBD 09:40 → EDUNIT# 09:40 → ER 09:40 → TELE 09:41 → TELE-CENTR 02-22 23:58
PROVIDERS: ADMIT Internal Medicine; ATTEND Internal Medicine
PROC: 0W9930Z Drainage of Right Pleural Cavity with Drainage Device, Percutaneous Approach (ICD-10-PCS; principal; 2020-02-21)
DX: J90 Pleural effusion, not elsewhere classified (principal); G93.41 Metabolic encephalopathy; I50.43 Acute on chronic combined systolic (congestive) and diastolic (congestive) heart failure; I13.0 Hypertensive heart and chronic kidney disease with heart failure and stage 1 through stage 4 chronic kidney disease, or unspecified chronic kidney disease; J96.11 Chronic respiratory failure with hypoxia; E44.1 Mild protein-calorie malnutrition; K70.31 Alcoholic cirrhosis of liver with ascites; E03.9 Hypothyroidism, unspecified; F03.90 Unspecified dementia, unspecified severity, without behavioral disturbance, psychotic disturbance, mood disturbance, and anxiety; Z20.822 Contact with and (suspected) exposure to COVID-19; I08.3 Combined rheumatic disorders of mitral, aortic and tricuspid valves; I25.10 Atherosclerotic heart disease of native coronary artery without angina pectoris; I25.2 Old myocardial infarction; I48.91 Unspecified atrial fibrillation; I73.9 Peripheral vascular disease, unspecified; J44.9 Chronic obstructive pulmonary disease, unspecified; K40.90 Unilateral inguinal hernia, without obstruction or gangrene, not specified as recurrent; K57.30 Diverticulosis of large intestine without perforation or abscess without bleeding; Z79.01 Long term (current) use of anticoagulants; Z79.899 Other long term (current) drug therapy; Z82.49 Family history of ischemic heart disease and other diseases of the circulatory system; Z86.16 Personal history of COVID-19; Z87.01 Personal history of pneumonia (recurrent); Z91.19 Patient's noncompliance with other medical treatment and regimen; Z95.1 Presence of aortocoronary bypass graft; Z99.81 Dependence on supplemental oxygen; D64.9 Anemia, unspecified; F32.9 Major depressive disorder, single episode, unspecified; K21.9 Gastro-esophageal reflux disease without esophagitis; N18.30 Chronic kidney disease, stage 3 unspecified
CPT/HCPCS: 36415; 51702; 71045; 73070; 74176; 80053; 81001; 82140; 82728; 83615; 83735; 83880; 84484; 85025; 85610; 85730; 86141; 86704; 86706; 86708; 86803; 87340; 87426; 93005; 96365; 96375; 97110; 99291; G0378; J0696

== ENCOUNTER 2020-04-04 14:04 | Inpatient (IN) | payer MEDICARE, OTHER ==
[~2020-04-04] VITALS: Ht 175.3 cm; Wt 72.2 kg
[~2020-04-04 14:04] MED LIST changes: -LEVO25TA6 PO; +LEVO50TA7 PO; -POTA10TA32 PO; +QUET1TAB11 PO; +SOTA80TA39 PO; +TAM04C PO
[2020-04-04 14:51] LABS: Basophils # (auto) 0 10 ^3/uL (0-0.2); Basophils % (auto) 0.4 % (0.0-2.0); Eosinophils # (auto) 0 10 ^3/uL (0-0.8); Eosinophils % (auto) 0.1 % (0.0-7.0); Hematocrit 39.8 % (41.0-53.0); Hemoglobin 13.5 g/dL (13.5-17.5); Lymphocytes # (auto) 0.8 10 ^3/uL (0.4-5.4); Lymphocytes % (auto) 10.4 % (10.0-50.0); Mean Corpuscular Hemoglobin 32.4 pg (28.0-32.0); Mean Corpuscular Hgb Conc. 33.9 g/dL (32.0-36.0); Mean Corpuscular Volume 95.7 fL (80.0-100.0); Monocytes # (auto) 1.1 10 ^3/uL (0-1.3); Monocytes % (auto) 14.3 % (0.0-12.0); Neutrophils # (auto) 5.6 10 ^3/uL (1.6-8.6); Neutrophils % (auto) 74.8 % (37.0-80.0); Nucleated Red Blood Cells % 0.1 %; Red Blood Cells 4.16 10^6/uL (4.5-5.90); Red Cell Distribution Width 16.3 % (11.8-14.3); White Blood Cell 7.5 10^3/uL (4.4-10.8)
[2020-04-04 15:06] LABS: Albumin 3.2 g/dL (3.4-5.0); Magnesium 2.5 mg/dL (1.6-2.6); Potassium 3.5 mmol/L (3.5-5.1)
[2020-04-04 15:12] LABS: BUN/Creatinine Ratio 17.4; Bilirubin, Total 1.8 mg/dL (0.2-1.0); Total Protein 7.5 g/dL (6.4-8.2)
[2020-04-04] MEDS ORDERED: HYDROcodone-ACET 5/325MG TAB PO PRN (16:15)
[2020-04-04] MEDS ORDERED: ACETAMINOPHEN 325 MG TAB PO PRN (16:15)
[2020-04-04] MEDS ORDERED: DOCUSATE SOD 100 MG CAP PO PRN (16:15)
[2020-04-04] MEDS ORDERED: MORPHINE SULFATE INJECTION 2 MG/ML SYRG IV PRN (16:15)
[2020-04-04] MEDS ORDERED: ONDANSETRON HCL 4 MG/2 ML VIAL IV PRN (16:15)
[2020-04-04] MEDS ORDERED: NITROGLYCERIN 0.4 MG SL TAB SL PRN (16:15)
[2020-04-04] MEDS: cefTRIAXone 1GM/50ML D5W 50 ML IV SCH (17:29)
[2020-04-04] MEDS ORDERED: [UNRECOGNIZED DRUG - CODE] PO (17:59)
[2020-04-04] MEDS ORDERED: B-CO1TAB8 PO (17:59)
[2020-04-04] MEDS: APIXABAN 2.5 MG TAB PO SCH (22:00)
[2020-04-04] MEDS: QUEtiapine FUMARATE 25 MG TAB PO SCH (22:00)
[2020-04-05 05:25] VITALS: BP 109/73
[2020-04-05] MEDS: LEVOTHYROXINE SODIUM 50 MCG TAB PO SCH (06:47)
[2020-04-05] MEDS: cefTRIAXone 1GM/50ML D5W 50 ML IV SCH (08:31)
[2020-04-05 08:48] LABS: Basophils # (auto) 0 10 ^3/uL (0-0.2); Basophils % (auto) 0.6 % (0.0-2.0); Eosinophils # (auto) 0 10 ^3/uL (0-0.8); Eosinophils % (auto) 0.6 % (0.0-7.0); Hemoglobin 13.6 g/dL (13.5-17.5); Lymphocytes # (auto) 0.8 10 ^3/uL (0.4-5.4); Lymphocytes % (auto) 10.1 % (10.0-50.0); Mean Corpuscular Hemoglobin 32.8 pg (28.0-32.0); Mean Corpuscular Hgb Conc. 34.1 g/dL (32.0-36.0); Mean Corpuscular Volume 96.1 fL (80.0-100.0); Monocytes % (auto) 13.7 % (0.0-12.0); Neutrophils # (auto) 5.7 10 ^3/uL (1.6-8.6); Red Blood Cells 4.16 10^6/uL (4.5-5.90); Red Cell Distribution Width 16.2 % (11.8-14.3); White Blood Cell 7.6 10^3/uL (4.4-10.8)
[2020-04-05 09:04] LABS: Potassium 3.2 mmol/L (3.5-5.1)
[2020-04-05 09:11] LABS: Bilirubin, Total 1.9 mg/dL (0.2-1.0); Total Protein 7.4 g/dL (6.4-8.2)
[2020-04-05] MEDS ORDERED: cefTRIAXone 1GM/50ML D5W 50 ML IV ONE (10:00)
[2020-04-05] MEDS ORDERED: APIXABAN 2.5 MG TAB PO SCH (10:00)
[2020-04-05] MEDS: SOTALOL HCL 80 MG TAB PO SCH ×2 (10:45→14:18)
[2020-04-05] MEDS: APIXABAN 2.5 MG TAB PO SCH ×3 (10:45→21:48)
[2020-04-05] MEDS: TAMSULOSIN HYDROCHLORIDE 0.4 MG CAP PO SCH ×2 (10:45→14:19)
[2020-04-05] MEDS: FUROSEMIDE 40 MG TAB PO SCH ×2 (10:46→14:19)
[2020-04-05] MEDS ORDERED: AZITHROMYCIN 500MG/ 250ML 250 ML IV ONE (12:30)
[2020-04-05] MEDS ORDERED: levoFLOXacin 500MG 100 ML IV ONE (12:45)
[2020-04-05] MEDS: CLINDAMYCIN 600MG IV 50 ML IV SCH ×2 (14:12→21:48)
[2020-04-05 21:00] VITALS: BP 104/58
[2020-04-05] MEDS: DONEPEZIL HYDROCHLORIDE 5 MG TAB PO SCH (21:48)
[2020-04-05] MEDS: QUEtiapine FUMARATE 25 MG TAB PO SCH (21:48)
[2020-04-06 05:00] VITALS: BP 118/50
[2020-04-06] MEDS: CLINDAMYCIN 600MG IV 50 ML IV SCH ×3 (06:23→21:18)
[2020-04-06] MEDS: LEVOTHYROXINE SODIUM 50 MCG TAB PO SCH (06:28)
[2020-04-06 09:00] VITALS: BP 132/52
[2020-04-06] MEDS ORDERED: levoFLOXacin 500MG 100 ML IV SCH (10:00)
[2020-04-06] MEDS ORDERED: AZITHROMYCIN 500MG/ 250ML 250 ML IV SCH (10:00)
[2020-04-06] MEDS: ASPirin 81 mg TAB PO SCH (10:35)
[2020-04-06] MEDS: APIXABAN 2.5 MG TAB PO SCH ×2 (10:36→21:18)
[2020-04-06] MEDS: risperiDONE 1 MG TAB PO SCH (10:37)
[2020-04-06] MEDS: TAMSULOSIN HYDROCHLORIDE 0.4 MG CAP PO SCH (10:37)
[2020-04-06] MEDS: SOTALOL HCL 80 MG TAB PO SCH (10:38)
[2020-04-06] MEDS: FUROSEMIDE 40 MG TAB PO SCH (10:39)
[2020-04-06 13:00] VITALS: BP 98/54
[2020-04-06] MEDS ORDERED: POTASSIUM EFFERVESENT TAB 25 MEQ PO ONE (16:45)
[2020-04-06 18:13] VITALS: BP_SYST 100; BP_SYST 132; BP_DIAS 52
[2020-04-06 21:00] VITALS: BP 96/48
[2020-04-06] MEDS: DONEPEZIL HYDROCHLORIDE 5 MG TAB PO SCH (21:18)
[2020-04-06] MEDS: QUEtiapine FUMARATE 25 MG TAB PO SCH (21:19)
[2020-04-07 05:00] VITALS: BP 107/70
[2020-04-07] MEDS: CLINDAMYCIN 600MG IV 50 ML IV SCH ×4 (05:44→22:00)
[2020-04-07] MEDS: LEVOTHYROXINE SODIUM 50 MCG TAB PO SCH (05:45)
[2020-04-07] MEDS: ASPirin 81 mg TAB PO SCH (07:55)
[2020-04-07] MEDS: APIXABAN 2.5 MG TAB PO SCH ×2 (07:56→22:00)
[2020-04-07] MEDS: TAMSULOSIN HYDROCHLORIDE 0.4 MG CAP PO SCH (07:56)
[2020-04-07] MEDS: SOTALOL HCL 80 MG TAB PO SCH (07:57)
[2020-04-07] MEDS: risperiDONE 1 MG TAB PO SCH (07:57)
[2020-04-07] MEDS: FUROSEMIDE 40 MG TAB PO SCH (07:57)
[2020-04-07 09:00] VITALS: BP 101/64
[2020-04-07 11:04] LABS: Basophils # (auto) 0.1 10 ^3/uL (0-0.2); Basophils % (auto) 1.1 % (0.0-2.0); Eosinophils # (auto) 0.2 10 ^3/uL (0-0.8); Eosinophils % (auto) 4.7 % (0.0-7.0); Hematocrit 38.5 % (41.0-53.0); Hemoglobin 12.7 g/dL (13.5-17.5); Lymphocytes # (auto) 0.6 10 ^3/uL (0.4-5.4); Lymphocytes % (auto) 11.6 % (10.0-50.0); Mean Corpuscular Hgb Conc. 33.1 g/dL (32.0-36.0); Mean Corpuscular Volume 96.8 fL (80.0-100.0); Monocytes # (auto) 0.5 10 ^3/uL (0-1.3); Monocytes % (auto) 10.9 % (0.0-12.0); Neutrophils # (auto) 3.6 10 ^3/uL (1.6-8.6); Neutrophils % (auto) 71.7 % (37.0-80.0); Red Blood Cells 3.98 10^6/uL (4.5-5.90); Red Cell Distribution Width 16.6 % (11.8-14.3)
[2020-04-07 11:33] LABS: Albumin 2.4 g/dL (3.4-5.0); BUN/Creatinine Ratio 23.5; Bilirubin, Total 0.6 mg/dL (0.2-1.0); Calcium 8.7 mg/dL (8.5-10.1); Magnesium 2.2 mg/dL (1.6-2.6); Potassium 3.8 mmol/L (3.5-5.1); Total Protein 6.4 g/dL (6.4-8.2)
[2020-04-07 13:43] VITALS: BP 112/72
[2020-04-07 17:36] VITALS: BP 116/68
[2020-04-07 21:43] VITALS: BP 103/66
[2020-04-07] MEDS: QUEtiapine FUMARATE 25 MG TAB PO SCH (22:00)
[2020-04-07] MEDS: DONEPEZIL HYDROCHLORIDE 5 MG TAB PO SCH (22:00)
[2020-04-08 04:36] VITALS: BP 126/78
[2020-04-08] MEDS: CLINDAMYCIN 600MG IV 50 ML IV SCH ×3 (06:00→22:04)
[2020-04-08] MEDS: LEVOTHYROXINE SODIUM 50 MCG TAB PO SCH ×2 (06:54→07:00)
[2020-04-08] MEDS: FUROSEMIDE 40 MG TAB PO SCH (09:08)
[2020-04-08] MEDS: SOTALOL HCL 80 MG TAB PO SCH (09:08)
[2020-04-08] MEDS: TAMSULOSIN HYDROCHLORIDE 0.4 MG CAP PO SCH (09:09)
[2020-04-08] MEDS: APIXABAN 2.5 MG TAB PO SCH ×2 (09:09→22:03)
[2020-04-08] MEDS: risperiDONE 1 MG TAB PO SCH (09:09)
[2020-04-08] MEDS: ASPirin 81 mg TAB PO SCH (09:09)
[2020-04-08 09:11] VITALS: BP 131/71
[2020-04-08 16:00] VITALS: BP 116/73
[2020-04-08 21:40] VITALS: BP 102/53
[2020-04-08] MEDS: DONEPEZIL HYDROCHLORIDE 5 MG TAB PO SCH (22:03)
[2020-04-08] MEDS: QUEtiapine FUMARATE 25 MG TAB PO SCH (22:03)
[2020-04-09 05:00] VITALS: BP 97/58
[2020-04-09] MEDS: LEVOTHYROXINE SODIUM 50 MCG TAB PO SCH (06:34)
[2020-04-09] MEDS: CLINDAMYCIN 600MG IV 50 ML IV SCH (06:34)
[2020-04-09] MEDS: FUROSEMIDE 40 MG TAB PO SCH (09:20)
[2020-04-09] MEDS: APIXABAN 2.5 MG TAB PO SCH (09:21)
[2020-04-09] MEDS: TAMSULOSIN HYDROCHLORIDE 0.4 MG CAP PO SCH (09:21)
[2020-04-09] MEDS: risperiDONE 1 MG TAB PO SCH (09:21)
[2020-04-09] MEDS: SOTALOL HCL 80 MG TAB PO SCH (09:21)
[2020-04-09] MEDS: ASPirin 81 mg TAB PO SCH (09:21)
[2020-04-09 09:27] VITALS: BP 114/68
[2020-04-09 13:00] VITALS: BP 118/72
[2020-04-09] MEDS ORDERED: DOXY-340 PO (13:41)
[2020-04-09] MEDS ORDERED: CLINDAMYCIN HCL 150 MG CAP PO SCH (14:00)
[2020-04-09 16:40] VITALS: BP 120/67
[2020-04-09 17:11] VITALS: BP 120/67
[2020-04-09 19:30] VITALS: BP 114/62
[2020-04-10] MEDS ORDERED: levoFLOXacin 500 MG TAB PO SCH (10:00)
[2020-06-01] MEDS ORDERED: SILV1CRE98 TOP (11:51)
[2020-06-01] MEDS ORDERED: RISP1TAB63 PO (11:51)
[2020-06-01] MEDS ORDERED: MEMA28CA15 PO (11:51)
== END 2020-04-09 19:55 | disposition home health service (06) | DRG 306 ==
LOC: ER 14:04 → TELE 14:05 → TELE-CENTR 04-05 04:40
PROVIDERS: ADMIT Internal Medicine; ATTEND Nurse Practitioner
PROC: 0W9930Z Drainage of Right Pleural Cavity with Drainage Device, Percutaneous Approach (ICD-10-PCS; principal; 2020-04-06)
PROC: 0W9930Z Drainage of Right Pleural Cavity with Drainage Device, Percutaneous Approach (ICD-10-PCS; 2020-04-07)
DX: I08.3 Combined rheumatic disorders of mitral, aortic and tricuspid valves (principal); J96.01 Acute respiratory failure with hypoxia; I50.43 Acute on chronic combined systolic (congestive) and diastolic (congestive) heart failure; N17.0 Acute kidney failure with tubular necrosis; G93.41 Metabolic encephalopathy; J91.8 Pleural effusion in other conditions classified elsewhere; I13.0 Hypertensive heart and chronic kidney disease with heart failure and stage 1 through stage 4 chronic kidney disease, or unspecified chronic kidney disease; L03.116 Cellulitis of left lower limb; J98.11 Atelectasis; D84.9 Immunodeficiency, unspecified; E44.0 Moderate protein-calorie malnutrition; I48.20 Chronic atrial fibrillation, unspecified; J44.0 Chronic obstructive pulmonary disease with (acute) lower respiratory infection; I25.10 Atherosclerotic heart disease of native coronary artery without angina pectoris; F03.90 Unspecified dementia, unspecified severity, without behavioral disturbance, psychotic disturbance, mood disturbance, and anxiety; E03.9 Hypothyroidism, unspecified; Z20.822 Contact with and (suspected) exposure to COVID-19; K74.60 Unspecified cirrhosis of liver; M17.12 Unilateral primary osteoarthritis, left knee; I25.5 Ischemic cardiomyopathy; K57.30 Diverticulosis of large intestine without perforation or abscess without bleeding; N18.31 Chronic kidney disease, stage 3a; Z86.16 Personal history of COVID-19; F32.9 Major depressive disorder, single episode, unspecified; G89.29 Other chronic pain; K21.9 Gastro-esophageal reflux disease without esophagitis; R26.2 Difficulty in walking, not elsewhere classified; R53.81 Other malaise; Z95.810 Presence of automatic (implantable) cardiac defibrillator; Z79.01 Long term (current) use of anticoagulants; Z79.890 Hormone replacement therapy; Z79.899 Other long term (current) drug therapy; Z82.49 Family history of ischemic heart disease and other diseases of the circulatory system; Z95.1 Presence of aortocoronary bypass graft; I25.2 Old myocardial infarction; Z68.23 Body mass index [BMI] 23.0-23.9, adult
CPT/HCPCS: 36415; 71045; 73560; 73721; 74176; 80053; 82140; 82962; 83735; 83880; 84443; 84484; 84550; 85025; 87040; 87426; 93005; 93306; G0378; J0696; J1956; J3490

== ENCOUNTER → 2020-04-17 | Outpatient (CLI) | payer MEDICARE, OTHER ==
[~2020-04-17] MED LIST changes: +B-CO1TAB8 PO; -CHOL20007 PO; +DOXY-340 PO; -MULTCAP45 PO; -QUET1TAB11 PO; +QUET25TA46 PO; -SOTA80TA39 PO; +SOTA80TA7 PO; +[UNRECOGNIZED DRUG - CODE] PO
== END | disposition home or self-care (01) ==
LOC: XY 08:53
PROVIDERS: ATTEND Internal Medicine
DX: I70.202 Unspecified atherosclerosis of native arteries of extremities, left leg (principal); L03.116 Cellulitis of left lower limb
CPT/HCPCS: 93926

== ENCOUNTER 2020-10-01 07:59 | Inpatient (IN) | payer MEDICARE, BC ==
[~2020-10-01] VITALS: Ht 175.3 cm; Wt 68.0 kg
[~2020-10-01 07:59] MED LIST changes: -DOXY-340 PO; +SILV1CRE98 TOP
[2020-10-01] MEDS ORDERED: SODIUM CHLORIDE 0.9% 1,000 ML IV ONE (09:45)
[2020-10-01 10:19] LABS: Basophils # (auto) 0.1 10 ^3/uL (0-0.2); Basophils % (auto) 1.4 % (0.0-2.0); Eosinophils # (auto) 0.3 10 ^3/uL (0-0.8); Eosinophils % (auto) 5.5 % (0.0-7.0); Hematocrit 39.9 % (41.0-53.0); Hemoglobin 13.7 g/dL (13.5-17.5); Lymphocytes # (auto) 0.9 10 ^3/uL (0.4-5.4); Mean Corpuscular Hemoglobin 32.1 pg (28.0-32.0); Mean Corpuscular Hgb Conc. 34.3 g/dL (32.0-36.0); Mean Corpuscular Volume 93.5 fL (80.0-100.0); Monocytes # (auto) 0.7 10 ^3/uL (0-1.3); Monocytes % (auto) 11.7 % (0.0-12.0); Neutrophils # (auto) 3.8 10 ^3/uL (1.6-8.6); Neutrophils % (auto) 66.4 % (37.0-80.0); Nucleated Red Blood Cells % 0.1 %; Red Blood Cells 4.26 10^6/uL (4.5-5.90); Red Cell Distribution Width 17.2 % (11.8-14.3); White Blood Cell 5.7 10^3/uL (4.4-10.8)
[2020-10-01 10:24] LABS: INR 1.16 (0.9-1.15); Partial Thromboplastin Time 33.1 sec (23.6-33.0)
[2020-10-01 10:45] LABS: Calcium 8.7 mg/dL (8.5-10.1); Magnesium 2.9 mg/dL (1.6-2.6); Potassium 4.2 mmol/L (3.5-5.1)
[2020-10-01 10:50] LABS: Albumin 2.7 g/dL (3.4-5.0); BUN/Creatinine Ratio 22.5; Total Protein 7.5 g/dL (6.4-8.2)
[2020-10-01] MEDS ORDERED: PROMETHAZINE HCL 25 MG/ML 1ML IV ONE (11:45)
[2020-10-01] MEDS ORDERED: HYDROmorphone HCL 2 MG/ML VL IV ONE (11:45)
[2020-10-01] MEDS ORDERED: LIDOCAINE HCL 2 % INJ 2ML MPF NEB ONE (11:45)
[2020-10-01] MEDS ORDERED: SODIUM CHLORIDE 0.9% 500 ML IV ONE (14:15)
[2020-10-01] MEDS ORDERED: NITROGLYCERIN 0.4 MG SL TAB SL PRN ×2 (15:15→19:00)
[2020-10-01] MEDS ORDERED: MORPHINE SULFATE INJECTION 2 MG/ML SYRG IV PRN ×2 (15:15→19:00)
[2020-10-01] MEDS ORDERED: METOCLOPRAMIDE HCL 5MG/ml INJ 2ml VIAL IV PRN (19:00)
[2020-10-01] MEDS ORDERED: cefTRIAXone 1GM/50ML D5W 50 ML IV ONE (19:00)
[2020-10-01] MEDS ORDERED: ACETAMINOPHEN 325 MG TAB PO PRN (19:00)
[2020-10-01] MEDS ORDERED: IPRATROPIUM BROM 0.5 MG/2.5ML INH SOL NEB ONE (19:00)
[2020-10-01] MEDS ORDERED: ALBUTEROL SULF 2.5 MG/0.5ML(0.5%) NEB SOLN NEB ONE (19:00)
[2020-10-01] MEDS ORDERED: ALBUTEROL SULF 2.5 MG/0.5ML(0.5%) NEB SOLN NEB PRN (19:00)
[2020-10-01] MEDS ORDERED: DOCUSATE SOD 100 MG CAP PO PRN (19:00)
[2020-10-01] MEDS ORDERED: LORazepam 0.5 MG TAB PO PRN (19:00)
[2020-10-01] MEDS ORDERED: IPRATROPIUM BROM 0.5 MG/2.5ML INH SOL ONE (20:11)
[2020-10-01] MEDS ORDERED: ALBUTEROL SULF 2.5 MG/0.5ML(0.5%) NEB SOLN ONE (20:11)
[2020-10-01] MEDS ORDERED: IPRATROPIUM BROM 0.5 MG/2.5ML INH SOL NEB PRN (21:00)
[2020-10-01 21:07] LABS: INR 1.11 (0.9-1.15)
[2020-10-01 21:09] LABS: Magnesium 2.7 mg/dL (1.6-2.6); Phosphorus 3.5 mg/dL (2.5-4.90)
[2020-10-01] MEDS ORDERED: IPRATROPIUM BROM 0.5 MG/2.5ML INH SOL NEB SCH (22:00)
[2020-10-01] MEDS: APIXABAN 2.5 MG TAB PO SCH (22:53)
[2020-10-01] MEDS: ATORVASTATIN 20 MG TAB PO SCH (22:53)
[2020-10-01] MEDS: QUEtiapine FUMARATE 25 MG TAB PO SCH (22:53)
[2020-10-01] MEDS: SOTALOL HCL 80 MG TAB PO SCH (22:53)
[2020-10-01] MEDS: SILVER SULFADIAZINE 1 % TOPICAL CREAM 50GM TOP SCH (22:54)
[2020-10-01] MEDS: SODIUM CHLOR 0.9% PF (SALINE LOCK) 10ML VIAL/SYR IV SCH (22:55)
[2020-10-01 23:03] VITALS: BP 130/67
[2020-10-02] MEDS: MORPHINE SULFATE INJECTION 2 MG/ML SYRG IV PRN (00:15)
[2020-10-02 02:52] VITALS: BP 110/73
[2020-10-02 05:00] VITALS: BP 110/73
[2020-10-02] MEDS: SODIUM CHLOR 0.9% PF (SALINE LOCK) 10ML VIAL/SYR IV SCH ×3 (05:59→22:34)
[2020-10-02] MEDS: LEVOTHYROXINE SODIUM 50 MCG TAB PO SCH (05:59)
[2020-10-02] MEDS: FUROSEMIDE 20 MG/2 ML VIAL IV SCH ×2 (06:00→18:08)
[2020-10-02 09:00] VITALS: BP 123/72
[2020-10-02] MEDS: cefTRIAXone 1GM/50ML D5W 50 ML IV SCH (12:16)
[2020-10-02] MEDS: ASPirin 81 mg TAB PO SCH (12:17)
[2020-10-02] MEDS: SOTALOL HCL 80 MG TAB PO SCH ×2 (12:20→22:00)
[2020-10-02] MEDS: APIXABAN 2.5 MG TAB PO SCH ×2 (12:21→22:34)
[2020-10-02] MEDS: TAMSULOSIN HYDROCHLORIDE 0.4 MG CAP PO SCH (12:21)
[2020-10-02] MEDS: POTASSIUM CHL 10 Meq TABLET PO SCH (12:22)
[2020-10-02] MEDS: CHOLECALCIFEROL (VITD3) 1,000UNIT=25mCg TAB PO SCH (12:22)
[2020-10-02] MEDS: SILVER SULFADIAZINE 1 % TOPICAL CREAM 50GM TOP SCH ×2 (12:23→22:35)
[2020-10-02] MEDS: LISINOPRIL 5 MG TAB PO SCH (12:23)
[2020-10-02 17:00] VITALS: BP_SYST 102; BP_SYST 103; BP_DIAS 58
[2020-10-02] MEDS ORDERED: LORazepam 2MG/ML-1ML VIAL IV PRN (18:45)
[2020-10-02] MEDS ORDERED: LORazepam 2MG/ML-1ML VIAL IV ONE ×2 (19:00)
[2020-10-02] MEDS: LORazepam 2MG/ML-1ML VIAL IV PRN (19:08)
[2020-10-02 21:00] VITALS: BP 107/64
[2020-10-02] MEDS: ATORVASTATIN 20 MG TAB PO SCH (22:34)
[2020-10-02] MEDS: QUEtiapine FUMARATE 25 MG TAB PO SCH (22:35)
[2020-10-03] MEDS: LORazepam 2MG/ML-1ML VIAL IV PRN (01:46)
[2020-10-03 04:27] VITALS: BP 113/86
[2020-10-03] MEDS: SODIUM CHLOR 0.9% PF (SALINE LOCK) 10ML VIAL/SYR IV SCH ×3 (06:00→21:41)
[2020-10-03] MEDS: LEVOTHYROXINE SODIUM 50 MCG TAB PO SCH (06:38)
[2020-10-03] MEDS: FUROSEMIDE 20 MG/2 ML VIAL IV SCH ×2 (06:38→18:00)
[2020-10-03] MEDS: cefTRIAXone 1GM/50ML D5W 50 ML IV SCH (09:00)
[2020-10-03 09:24] VITALS: BP 116/69
[2020-10-03] MEDS: POTASSIUM CHL 10 Meq TABLET PO SCH (10:00)
[2020-10-03] MEDS: CHOLECALCIFEROL (VITD3) 1,000UNIT=25mCg TAB PO SCH (10:00)
[2020-10-03] MEDS: SOTALOL HCL 80 MG TAB PO SCH ×2 (10:00→21:40)
[2020-10-03] MEDS: SILVER SULFADIAZINE 1 % TOPICAL CREAM 50GM TOP SCH ×2 (10:00→23:51)
[2020-10-03] MEDS: TAMSULOSIN HYDROCHLORIDE 0.4 MG CAP PO SCH (10:00)
[2020-10-03] MEDS: APIXABAN 2.5 MG TAB PO SCH ×2 (10:00→21:41)
[2020-10-03] MEDS: LISINOPRIL 5 MG TAB PO SCH (10:00)
[2020-10-03] MEDS: ASPirin 81 mg TAB PO SCH (10:00)
[2020-10-03 13:00] VITALS: BP 108/80
[2020-10-03] MEDS: MORPHINE SULFATE INJECTION 2 MG/ML SYRG IV PRN (15:41)
[2020-10-03 17:00] VITALS: BP 122/80
[2020-10-03] MEDS: QUEtiapine FUMARATE 25 MG TAB PO SCH (21:41)
[2020-10-03] MEDS: ATORVASTATIN 20 MG TAB PO SCH (21:41)
[2020-10-03 21:53] VITALS: BP 134/60
[2020-10-04] VITALS (7 sets, daily range): BP systolic 101–134; BP diastolic 55–79
[2020-10-04] MEDS: FUROSEMIDE 20 MG/2 ML VIAL IV SCH ×2 (05:58→18:25)
[2020-10-04] MEDS: SODIUM CHLOR 0.9% PF (SALINE LOCK) 10ML VIAL/SYR IV SCH ×3 (05:58→22:27)
[2020-10-04] MEDS: LEVOTHYROXINE SODIUM 50 MCG TAB PO SCH (06:00)
[2020-10-04 07:25] LABS: Basophils # (auto) 0.1 10 ^3/uL (0-0.2); Basophils % (auto) 0.7 % (0.0-2.0); Eosinophils # (auto) 0.2 10 ^3/uL (0-0.8); Eosinophils % (auto) 1.8 % (0.0-7.0); Hematocrit 46.4 % (41.0-53.0); Hemoglobin 15.9 g/dL (13.5-17.5); Lymphocytes # (auto) 0.8 10 ^3/uL (0.4-5.4); Lymphocytes % (auto) 9.2 % (10.0-50.0); Mean Corpuscular Hemoglobin 32.1 pg (28.0-32.0); Mean Corpuscular Hgb Conc. 34.2 g/dL (32.0-36.0); Mean Corpuscular Volume 93.8 fL (80.0-100.0); Monocytes # (auto) 1.1 10 ^3/uL (0-1.3); Neutrophils # (auto) 6.9 10 ^3/uL (1.6-8.6); Neutrophils % (auto) 76.3 % (37.0-80.0); Nucleated Red Blood Cells % 0.1 %; Red Blood Cells 4.95 10^6/uL (4.5-5.90); Red Cell Distribution Width 16.2 % (11.8-14.3); White Blood Cell 9.1 10^3/uL (4.4-10.8)
[2020-10-04 07:41] LABS: Potassium 4.1 mmol/L (3.5-5.1)
[2020-10-04 07:45] LABS: BUN/Creatinine Ratio 23.8
[2020-10-04] MEDS: cefTRIAXone 1GM/50ML D5W 50 ML IV SCH (10:08)
[2020-10-04] MEDS: ASPirin 81 mg TAB PO SCH (10:08)
[2020-10-04] MEDS: SOTALOL HCL 80 MG TAB PO SCH ×2 (10:11→22:00)
[2020-10-04] MEDS: APIXABAN 2.5 MG TAB PO SCH ×2 (10:12→22:00)
[2020-10-04] MEDS: TAMSULOSIN HYDROCHLORIDE 0.4 MG CAP PO SCH (10:12)
[2020-10-04] MEDS: POTASSIUM CHL 10 Meq TABLET PO SCH (10:13)
[2020-10-04] MEDS: CHOLECALCIFEROL (VITD3) 1,000UNIT=25mCg TAB PO SCH (10:13)
[2020-10-04] MEDS: LISINOPRIL 5 MG TAB PO SCH (10:14)
[2020-10-04] MEDS: SILVER SULFADIAZINE 1 % TOPICAL CREAM 50GM TOP SCH ×2 (10:15→22:00)
[2020-10-04] MEDS: LORazepam 2MG/ML-1ML VIAL IV PRN (15:34)
[2020-10-04] MEDS: ATORVASTATIN 20 MG TAB PO SCH (22:00)
[2020-10-04] MEDS: QUEtiapine FUMARATE 25 MG TAB PO SCH (22:00)
[2020-10-05 05:00] VITALS: BP 124/83
[2020-10-05] MEDS: FUROSEMIDE 20 MG/2 ML VIAL IV SCH ×2 (05:39→18:31)
[2020-10-05] MEDS: SODIUM CHLOR 0.9% PF (SALINE LOCK) 10ML VIAL/SYR IV SCH ×3 (05:39→19:33)
[2020-10-05] MEDS: LEVOTHYROXINE SODIUM 50 MCG TAB PO SCH (05:39)
[2020-10-05 09:00] VITALS: BP 89/45
[2020-10-05] MEDS: POTASSIUM CHL 10 Meq TABLET PO SCH (09:43)
[2020-10-05] MEDS: ASPirin 81 mg TAB PO SCH (09:45)
[2020-10-05] MEDS: LISINOPRIL 5 MG TAB PO SCH (09:45)
[2020-10-05] MEDS: APIXABAN 2.5 MG TAB PO SCH ×2 (09:45→19:35)
[2020-10-05] MEDS: CHOLECALCIFEROL (VITD3) 1,000UNIT=25mCg TAB PO SCH (09:45)
[2020-10-05] MEDS: TAMSULOSIN HYDROCHLORIDE 0.4 MG CAP PO SCH (09:45)
[2020-10-05] MEDS: SILVER SULFADIAZINE 1 % TOPICAL CREAM 50GM TOP SCH ×2 (10:00→19:35)
[2020-10-05] MEDS: SOTALOL HCL 80 MG TAB PO SCH ×2 (10:11→19:36)
[2020-10-05 13:00] VITALS: BP 90/59
[2020-10-05 17:00] VITALS: BP 120/76
[2020-10-05] MEDS: ATORVASTATIN 20 MG TAB PO SCH (19:34)
[2020-10-05] MEDS: QUEtiapine FUMARATE 25 MG TAB PO SCH (19:34)
[2020-10-05 22:00] VITALS: BP 103/70
[2020-10-06 05:00] VITALS: BP 98/57
[2020-10-06] MEDS: FUROSEMIDE 20 MG/2 ML VIAL IV SCH ×2 (06:00→17:52)
[2020-10-06] MEDS: SODIUM CHLOR 0.9% PF (SALINE LOCK) 10ML VIAL/SYR IV SCH ×3 (06:26→22:15)
[2020-10-06] MEDS: LEVOTHYROXINE SODIUM 50 MCG TAB PO SCH (06:27)
[2020-10-06 08:09] LABS: Basophils # (auto) 0.1 10 ^3/uL (0-0.2); Eosinophils # (auto) 0.3 10 ^3/uL (0-0.8); Eosinophils % (auto) 3.1 % (0.0-7.0); Hematocrit 37.2 % (41.0-53.0); Lymphocytes # (auto) 0.9 10 ^3/uL (0.4-5.4); Lymphocytes % (auto) 10.4 % (10.0-50.0); Mean Corpuscular Hemoglobin 32.1 pg (28.0-32.0); Mean Corpuscular Hgb Conc. 34.9 g/dL (32.0-36.0); Monocytes % (auto) 12.1 % (0.0-12.0); Neutrophils # (auto) 6.1 10 ^3/uL (1.6-8.6); Neutrophils % (auto) 73.4 % (37.0-80.0); Nucleated Red Blood Cells % 0.1 %; Red Blood Cells 4.04 10^6/uL (4.5-5.90); Red Cell Distribution Width 16.5 % (11.8-14.3); White Blood Cell 8.4 10^3/uL (4.4-10.8)
[2020-10-06 08:24] LABS: Calcium 8.6 mg/dL (8.5-10.1); Potassium 3.9 mmol/L (3.5-5.1)
[2020-10-06 08:27] LABS: BUN/Creatinine Ratio 29.4
[2020-10-06 09:00] VITALS: BP 106/62
[2020-10-06] MEDS: CHOLECALCIFEROL (VITD3) 1,000UNIT=25mCg TAB PO SCH (10:12)
[2020-10-06] MEDS: SOTALOL HCL 80 MG TAB PO SCH ×2 (10:12→22:00)
[2020-10-06] MEDS: APIXABAN 2.5 MG TAB PO SCH ×2 (10:13→22:00)
[2020-10-06] MEDS: ASPirin 81 mg TAB PO SCH (10:13)
[2020-10-06] MEDS: POTASSIUM CHL 10 Meq TABLET PO SCH (10:13)
[2020-10-06] MEDS: SILVER SULFADIAZINE 1 % TOPICAL CREAM 50GM TOP SCH (10:13)
[2020-10-06] MEDS: TAMSULOSIN HYDROCHLORIDE 0.4 MG CAP PO SCH (10:13)
[2020-10-06] MEDS: LISINOPRIL 5 MG TAB PO SCH (10:13)
[2020-10-06 13:00] VITALS: BP 100/53
[2020-10-06 17:00] VITALS: BP_SYST 103; BP_SYST 99; BP_DIAS 53; BP_DIAS 58
[2020-10-06] MEDS: LORazepam 2MG/ML-1ML VIAL IV PRN (17:52)
[2020-10-06 22:00] VITALS: BP 92/50
[2020-10-06] MEDS: ATORVASTATIN 20 MG TAB PO SCH (22:00)
[2020-10-06] MEDS: QUEtiapine FUMARATE 25 MG TAB PO SCH (22:00)
[2020-10-07] VITALS (8 sets, daily range): BP systolic 92–129; BP diastolic 50–72
[2020-10-07] MEDS: FUROSEMIDE 20 MG/2 ML VIAL IV SCH ×2 (05:33→18:00)
[2020-10-07] MEDS: SODIUM CHLOR 0.9% PF (SALINE LOCK) 10ML VIAL/SYR IV SCH ×3 (05:33→22:17)
[2020-10-07] MEDS: LEVOTHYROXINE SODIUM 50 MCG TAB PO SCH (06:41)
[2020-10-07] MEDS: SOTALOL HCL 80 MG TAB PO SCH ×2 (10:00→22:17)
[2020-10-07] MEDS: LISINOPRIL 5 MG TAB PO SCH (10:00)
[2020-10-07] MEDS: APIXABAN 2.5 MG TAB PO SCH ×2 (10:00→22:16)
[2020-10-07] MEDS: TAMSULOSIN HYDROCHLORIDE 0.4 MG CAP PO SCH (10:41)
[2020-10-07] MEDS: CHOLECALCIFEROL (VITD3) 1,000UNIT=25mCg TAB PO SCH (10:41)
[2020-10-07] MEDS: ASPirin 81 mg TAB PO SCH (10:41)
[2020-10-07] MEDS ORDERED: MIDAZOLAM HCL 2MG/2ML 2ml VIAL (1mg/ml) ONE (12:57)
[2020-10-07] MEDS ORDERED: fentaNYL CITRATE 100 MCG/2 ML VL ONE (12:58)
[2020-10-07] MEDS ORDERED: LIDOCAINE 2%HCL (LOCAL ANESTH.) INJ 20ML MDV ONE (13:37)
[2020-10-07] MEDS ORDERED: SODIUM CHLORIDE 0.9% 250 ML IV ONE (16:00)
[2020-10-07] MEDS ORDERED: HALOPERIDOL LACTATE 5 MG/ML INJ VIAL IM ONE (21:15)
[2020-10-07] MEDS: LORazepam 2MG/ML-1ML VIAL IV PRN (22:00)
[2020-10-07] MEDS: QUEtiapine FUMARATE 25 MG TAB PO SCH (22:16)
[2020-10-07] MEDS: ATORVASTATIN 20 MG TAB PO SCH (22:16)
[2020-10-07] MEDS: MORPHINE SULFATE INJECTION 2 MG/ML SYRG IV PRN (23:36)
[2020-10-08 05:06] VITALS: BP 90/52
[2020-10-08] MEDS: HYDROcodone-ACET 5/325MG TAB PO PRN ×2 (07:00→15:50)
[2020-10-08] MEDS: FUROSEMIDE 20 MG/2 ML VIAL IV SCH ×2 (07:00→18:00)
[2020-10-08] MEDS: SODIUM CHLOR 0.9% PF (SALINE LOCK) 10ML VIAL/SYR IV SCH ×3 (07:00→21:58)
[2020-10-08] MEDS: LEVOTHYROXINE SODIUM 50 MCG TAB PO SCH (07:13)
[2020-10-08 09:00] VITALS: BP 108/61
[2020-10-08] MEDS: TAMSULOSIN HYDROCHLORIDE 0.4 MG CAP PO SCH (11:45)
[2020-10-08] MEDS: APIXABAN 2.5 MG TAB PO SCH ×2 (11:45→21:58)
[2020-10-08] MEDS: SOTALOL HCL 80 MG TAB PO SCH ×2 (11:45→21:57)
[2020-10-08] MEDS: ASPirin 81 mg TAB PO SCH (11:46)
[2020-10-08] MEDS: LISINOPRIL 5 MG TAB PO SCH (11:46)
[2020-10-08] MEDS: CHOLECALCIFEROL (VITD3) 1,000UNIT=25mCg TAB PO SCH (11:46)
[2020-10-08 20:00] VITALS: BP 90/53
[2020-10-08] MEDS: QUEtiapine FUMARATE 25 MG TAB PO SCH (21:58)
[2020-10-08] MEDS: ATORVASTATIN 20 MG TAB PO SCH (21:58)
[2020-10-09] MEDS: FUROSEMIDE 20 MG/2 ML VIAL IV SCH ×2 (05:58→18:00)
[2020-10-09] MEDS: SODIUM CHLOR 0.9% PF (SALINE LOCK) 10ML VIAL/SYR IV SCH ×3 (05:59→21:38)
[2020-10-09] MEDS: LEVOTHYROXINE SODIUM 50 MCG TAB PO SCH (07:01)
[2020-10-09 09:00] VITALS: BP 88/58
[2020-10-09] MEDS: LISINOPRIL 5 MG TAB PO SCH (10:00)
[2020-10-09] MEDS: SOTALOL HCL 80 MG TAB PO SCH ×2 (10:00→21:39)
[2020-10-09] MEDS: ASPirin 81 mg TAB PO SCH (12:30)
[2020-10-09] MEDS: TAMSULOSIN HYDROCHLORIDE 0.4 MG CAP PO SCH (12:30)
[2020-10-09] MEDS: APIXABAN 2.5 MG TAB PO SCH ×2 (12:30→21:39)
[2020-10-09] MEDS: CHOLECALCIFEROL (VITD3) 1,000UNIT=25mCg TAB PO SCH (12:30)
[2020-10-09 13:00] VITALS: BP 85/47
[2020-10-09 17:00] VITALS: BP 87/50
[2020-10-09] MEDS: LORazepam 2MG/ML-1ML VIAL IV PRN (17:50)
[2020-10-09 20:15] VITALS: BP 100/55
[2020-10-09] MEDS: MORPHINE SULFATE INJECTION 2 MG/ML SYRG IV PRN (20:15)
[2020-10-09] MEDS: ATORVASTATIN 20 MG TAB PO SCH (21:39)
[2020-10-09] MEDS: QUEtiapine FUMARATE 25 MG TAB PO SCH (21:39)
[2020-10-09 22:00] VITALS: BP 100/55
[2020-10-10 05:00] VITALS: BP 108/60
[2020-10-10] MEDS: SODIUM CHLOR 0.9% PF (SALINE LOCK) 10ML VIAL/SYR IV SCH ×3 (06:00→23:00)
[2020-10-10] MEDS: FUROSEMIDE 20 MG/2 ML VIAL IV SCH ×2 (06:00→18:00)
[2020-10-10] MEDS: LEVOTHYROXINE SODIUM 50 MCG TAB PO SCH (06:12)
[2020-10-10] MEDS: APIXABAN 2.5 MG TAB PO SCH ×2 (10:00→23:00)
[2020-10-10] MEDS: TAMSULOSIN HYDROCHLORIDE 0.4 MG CAP PO SCH (10:00)
[2020-10-10] MEDS: CHOLECALCIFEROL (VITD3) 1,000UNIT=25mCg TAB PO SCH (10:00)
[2020-10-10] MEDS: ASPirin 81 mg TAB PO SCH (10:00)
[2020-10-10] MEDS: LISINOPRIL 5 MG TAB PO SCH (10:00)
[2020-10-10] MEDS: SOTALOL HCL 80 MG TAB PO SCH ×2 (10:00→23:00)
[2020-10-10] MEDS: MORPHINE SULFATE INJECTION 2 MG/ML SYRG IV PRN (13:00)
[2020-10-10] MEDS ORDERED: fentaNYL CITRATE 100 MCG/2 ML VL ONE (15:16)
[2020-10-10] MEDS ORDERED: MIDAZOLAM HCL 2MG/2ML 2ml VIAL (1mg/ml) ONE (15:16)
[2020-10-10] MEDS ORDERED: LIDOCAINE 2%HCL (LOCAL ANESTH.) INJ 20ML MDV ONE (15:26)
[2020-10-10 22:00] VITALS: BP 140/47
[2020-10-10] MEDS: QUEtiapine FUMARATE 25 MG TAB PO SCH (23:00)
[2020-10-10] MEDS: ATORVASTATIN 20 MG TAB PO SCH (23:00)
[2020-10-11 05:00] VITALS: BP 136/66
[2020-10-11] MEDS: FUROSEMIDE 20 MG/2 ML VIAL IV SCH ×2 (05:51→18:00)
[2020-10-11] MEDS: SODIUM CHLOR 0.9% PF (SALINE LOCK) 10ML VIAL/SYR IV SCH ×2 (05:52→14:00)
[2020-10-11] MEDS: LEVOTHYROXINE SODIUM 50 MCG TAB PO SCH (05:52)
[2020-10-11] MEDS: MORPHINE SULFATE INJECTION 2 MG/ML SYRG IV PRN (05:52)
[2020-10-11 09:00] VITALS: BP 98/62
[2020-10-11] MEDS: APIXABAN 2.5 MG TAB PO SCH (10:00)
[2020-10-11] MEDS: TAMSULOSIN HYDROCHLORIDE 0.4 MG CAP PO SCH (10:00)
[2020-10-11] MEDS: SOTALOL HCL 80 MG TAB PO SCH (10:02)
[2020-10-11] MEDS: LISINOPRIL 5 MG TAB PO SCH (10:02)
[2020-10-11] MEDS: CHOLECALCIFEROL (VITD3) 1,000UNIT=25mCg TAB PO SCH (10:03)
[2020-10-11] MEDS: ASPirin 81 mg TAB PO SCH (10:03)
[2020-10-11] MEDS ORDERED: METOPROLOL TARTRATE 50 MG TAB PO ONE (11:00)
[2020-10-11 13:00] VITALS: BP 112/70
[2020-10-11 17:00] VITALS: BP 110/67
[2020-10-11 17:29] VITALS: BP 98/62
[2020-10-11] MEDS ORDERED: METOPROLOL TARTRATE 50 MG TAB PO SCH (22:00)
== END 2020-10-11 20:10 | DRG 919 ==
LOC: ER 07:59 → TELE 15:14 → TELE-WESTW 10-02 01:26
PROVIDERS: ADMIT Hospitalist; ATTEND Internal Medicine Pulmonary Disease
PROC: 0W9930Z Drainage of Right Pleural Cavity with Drainage Device, Percutaneous Approach (ICD-10-PCS; principal; 2020-10-01)
PROC: 0W9930Z Drainage of Right Pleural Cavity with Drainage Device, Percutaneous Approach (ICD-10-PCS; 2020-10-10)
DX: T85.618A Breakdown (mechanical) of other specified internal prosthetic devices, implants and grafts, initial encounter (principal); J96.01 Acute respiratory failure with hypoxia; J93.0 Spontaneous tension pneumothorax; I13.0 Hypertensive heart and chronic kidney disease with heart failure and stage 1 through stage 4 chronic kidney disease, or unspecified chronic kidney disease; E44.0 Moderate protein-calorie malnutrition; J44.0 Chronic obstructive pulmonary disease with (acute) lower respiratory infection; I50.22 Chronic systolic (congestive) heart failure; I42.0 Dilated cardiomyopathy; I25.5 Ischemic cardiomyopathy; N18.31 Chronic kidney disease, stage 3a; I48.0 Paroxysmal atrial fibrillation; F01.50 Vascular dementia, unspecified severity, without behavioral disturbance, psychotic disturbance, mood disturbance, and anxiety; E03.9 Hypothyroidism, unspecified; Z68.22 Body mass index [BMI] 22.0-22.9, adult; G30.9 Alzheimer's disease, unspecified; F02.80 Dementia in other diseases classified elsewhere, unspecified severity, without behavioral disturbance, psychotic disturbance, mood disturbance, and anxiety; F32.9 Major depressive disorder, single episode, unspecified; K21.9 Gastro-esophageal reflux disease without esophagitis; I25.10 Atherosclerotic heart disease of native coronary artery without angina pectoris; I73.9 Peripheral vascular disease, unspecified; Z20.822 Contact with and (suspected) exposure to COVID-19; Z79.01 Long term (current) use of anticoagulants; Z79.899 Other long term (current) drug therapy; Z82.49 Family history of ischemic heart disease and other diseases of the circulatory system; Z87.891 Personal history of nicotine dependence; Z95.1 Presence of aortocoronary bypass graft; Z95.810 Presence of automatic (implantable) cardiac defibrillator; K70.30 Alcoholic cirrhosis of liver without ascites
CPT/HCPCS: 10022; 32551; 36415; 71045; 71046; 71250; 77002; 77012; 80048; 80053; 83036; 83735; 83880; 84100; 84443; 84484; 85025; 85610; 85730; 87040; 87426; 93005; 93306; 96361; 96374; 96375; A4565; C1729; G0378; J0696; J2250

== ENCOUNTER 2020-12-24 09:12 | Inpatient (IN) | payer MEDICARE, BC ==
[~2020-12-24] VITALS: Ht 167.6 cm; Wt 58.2 kg
[~2020-12-24 09:12] MED LIST changes: +QUET1TAB11 PO; -QUET25TA46 PO; +SOTA80TA39 PO; -SOTA80TA7 PO
[2020-12-24 10:56] LABS: Basophils # (auto) 0.1 10 ^3/uL (0-0.2); Basophils % (auto) 1.3 % (0.0-2.0); Eosinophils # (auto) 0.5 10 ^3/uL (0-0.8); Eosinophils % (auto) 6.3 % (0.0-7.0); Lymphocytes # (auto) 0.8 10 ^3/uL (0.4-5.4); Lymphocytes % (auto) 11.2 % (10.0-50.0); Mean Corpuscular Hemoglobin 29.3 pg (28.0-32.0); Mean Corpuscular Hgb Conc. 31.5 g/dL (32.0-36.0); Mean Corpuscular Volume 92.9 fL (80.0-100.0); Monocytes # (auto) 0.7 10 ^3/uL (0-1.3); Monocytes % (auto) 9.1 % (0.0-12.0); Neutrophils # (auto) 5.3 10 ^3/uL (1.6-8.6); Neutrophils % (auto) 72.1 % (37.0-80.0); Red Blood Cells 3.76 10^6/uL (4.5-5.90); Red Cell Distribution Width 18.4 % (11.8-14.3); White Blood Cell 7.4 10^3/uL (4.4-10.8)
[2020-12-24 11:12] LABS: Albumin 1.9 g/dL (3.4-5.0); BUN/Creatinine Ratio 27.2; Calcium 8.2 mg/dL (8.5-10.1); Magnesium 2.9 mg/dL (1.6-2.6); Potassium 3.3 mmol/L (3.5-5.1)
[2020-12-24 11:15] LABS: Bilirubin, Total 0.6 mg/dL (0.2-1.0); Total Protein 6.8 g/dL (6.4-8.2)
[2020-12-24] MEDS ORDERED: NITROGLYCERIN 0.4 MG SL TAB SL PRN ×2 (15:15→19:15)
[2020-12-24] MEDS ORDERED: POTASSIUM EFFERVESENT TAB 25 MEQ PO ONE (15:15)
[2020-12-24] MEDS ORDERED: MORPHINE SULFATE INJECTION 2 MG/ML SYRG IV PRN ×3 (15:15→19:15)
[2020-12-24] MEDS ORDERED: LORazepam 2MG/ML-1ML VIAL IV PRN (15:30)
[2020-12-24] MEDS ORDERED: HALOPERIDOL LACTATE 5 MG/ML INJ VIAL IM ONE (15:30)
[2020-12-24] MEDS ORDERED: LORazepam 2MG/ML-1ML VIAL IV ONE ×2 (15:30→17:30)
[2020-12-24 15:57] LABS: Urine Bacteria MANY /hpf (None Seen); Urine Blood 1+ /uL (Negative); Urine Hyaline Cast FEW /lpf (0 - 2); Urine Mucus FEW (None Seen); Urine WBC 470 /hpf (0 - 3); Urine WBC Clumps PRESENT /hpf (None Seen)
[2020-12-24] MEDS ORDERED: CHOL200021 PO (16:33)
[2020-12-24] MEDS ORDERED: PANT40T PO (16:35)
[2020-12-24] MEDS ORDERED: HYDR-4902 PO (16:35)
[2020-12-24] MEDS ORDERED: ASPI81TA92 PO (16:35)
[2020-12-24] MEDS ORDERED: ALPR0.5T8 PO (16:37)
[2020-12-24] MEDS ORDERED: LACT10SO3 PO (16:37)
[2020-12-24] MEDS ORDERED: FAMO-12 PO (16:38)
[2020-12-24] MEDS ORDERED: ENO30SY SC (16:38)
[2020-12-24] MEDS ORDERED: REVE175S INH (16:39)
[2020-12-24] MEDS ORDERED: cefTRIAXone 1GM/50ML D5W 50 ML IV ONE (19:00)
[2020-12-24] MEDS ORDERED: ONDANSETRON HCL 4 MG/2 ML VIAL IV PRN (19:15)
[2020-12-24] MEDS: FUROSEMIDE 40 MG/4 ML VIAL IV ONE ×2 (19:15→20:46)
[2020-12-24] MEDS ORDERED: ACETAMINOPHEN 325 MG TAB PO PRN (19:15)
[2020-12-24] MEDS ORDERED: PANTOPRAZOLE 40 MG/10 ML VIAL INJ IV ONE (19:15)
[2020-12-24] MEDS: SOTALOL HCL 80 MG TAB PO ONE ×2 (19:15→20:46)
[2020-12-24] MEDS ORDERED: HYDROcodone-ACET 5/325MG TAB PO PRN (19:15)
[2020-12-24] MEDS ORDERED: ALUM & MAG HYDROX-SIMETH LIQ(MAALOX) 30 ML PO PRN (19:15)
[2020-12-24] MEDS ORDERED: POTASSIUM CHL 20 Meq TABLET PO ONE (19:15)
[2020-12-24] MEDS ORDERED: DOCUSATE SOD 100 MG CAP PO PRN (19:15)
[2020-12-24] MEDS ORDERED: ENOXAPARIN SOD 40 MG/0.4 ML SYRINGE SC ONE (20:30)
[2020-12-24] MEDS: ATORVASTATIN 20 MG TAB PO SCH (21:14)
[2020-12-24 22:00] VITALS: BP 69/47
[2020-12-24] MEDS ORDERED: IPRATROPIUM BROM 0.5 MG/2.5ML INH SOL NEB SCH (22:00)
[2020-12-24] MEDS ORDERED: ALBUMIN 5% 250 ML IV ONE (22:45)
[2020-12-24] MEDS: ALPRAZolam 0.5 MG TAB PO SCH (23:15)
[2020-12-24] MEDS ORDERED: HALOPERIDOL LACTATE 5 MG/ML INJ VIAL IM PRN (23:30)
[2020-12-25 03:00] VITALS: BP 99/63
[2020-12-25 05:30] VITALS: BP 111/60
[2020-12-25] MEDS: ALPRAZolam 0.5 MG TAB PO SCH ×3 (05:31→18:00)
[2020-12-25] MEDS: FUROSEMIDE 40 MG/4 ML VIAL IV SCH ×2 (05:31→18:39)
[2020-12-25 05:40] LABS: Basophils # (auto) 0.1 10 ^3/uL (0-0.2); Basophils % (auto) 1.1 % (0.0-2.0); Eosinophils # (auto) 0.4 10 ^3/uL (0-0.8); Eosinophils % (auto) 4.6 % (0.0-7.0); Hematocrit 36.8 % (41.0-53.0); Hemoglobin 11.9 g/dL (13.5-17.5); Lymphocytes # (auto) 0.9 10 ^3/uL (0.4-5.4); Lymphocytes % (auto) 11.8 % (10.0-50.0); Mean Corpuscular Hemoglobin 29.6 pg (28.0-32.0); Mean Corpuscular Hgb Conc. 32.3 g/dL (32.0-36.0); Mean Corpuscular Volume 91.9 fL (80.0-100.0); Monocytes # (auto) 0.7 10 ^3/uL (0-1.3); Monocytes % (auto) 9.6 % (0.0-12.0); Neutrophils # (auto) 5.6 10 ^3/uL (1.6-8.6); Neutrophils % (auto) 72.9 % (37.0-80.0); Nucleated Red Blood Cells % 0.1 %; Red Cell Distribution Width 17.9 % (11.8-14.3); White Blood Cell 7.7 10^3/uL (4.4-10.8)
[2020-12-25 05:57] LABS: INR 1.19 (0.9-1.15); Partial Thromboplastin Time 35.9 sec (23.6-33.0)
[2020-12-25 05:58] LABS: Albumin 2.3 g/dL (3.4-5.0); Calcium 8.7 mg/dL (8.5-10.1); Magnesium 2.9 mg/dL (1.6-2.6); Potassium 3.8 mmol/L (3.5-5.1)
[2020-12-25 06:04] LABS: BUN/Creatinine Ratio 29.7; Bilirubin, Total 0.8 mg/dL (0.2-1.0); Phosphorus 1.9 mg/dL (2.5-4.90); Total Protein 8.1 g/dL (6.4-8.2)
[2020-12-25] MEDS ORDERED: POTASSIUM PHOSPHATE 26.4 MEQ in SODIUM CHL 0.9% 100 ML IV ONE (08:00)
[2020-12-25] MEDS: cefTRIAXone 1GM/50ML D5W 50 ML IV SCH (08:09)
[2020-12-25 09:00] VITALS: BP 120/86
[2020-12-25] MEDS: PANTOPRAZOLE 40 MG/10 ML VIAL INJ IV SCH (09:24)
[2020-12-25] MEDS: SOTALOL HCL 80 MG TAB PO SCH (09:26)
[2020-12-25] MEDS: ASPirin-EC 81 mg tab PO SCH (09:26)
[2020-12-25] MEDS: LISINOPRIL 5 MG TAB PO SCH (09:27)
[2020-12-25] MEDS: POTASSIUM CHL 20 Meq TABLET PO SCH (09:27)
[2020-12-25] MEDS: LEVOTHYROXINE SODIUM 50 MCG TAB PO SCH (09:46)
[2020-12-25] MEDS ORDERED: ENOXAPARIN SOD 40 MG/0.4 ML SYRINGE SC SCH (10:00)
[2020-12-25] MEDS ORDERED: ENOXAPARIN SOD 60 MG/0.6 ML SYRINGE SC SCH (10:00)
[2020-12-25] MEDS ORDERED: IOHEXOL 350 MG/ML 100ML IJ ONE (15:04)
[2020-12-25 18:00] VITALS: BP 115/68
[2020-12-25 22:00] VITALS: BP 82/38
[2020-12-25] MEDS: ATORVASTATIN 20 MG TAB PO SCH (22:03)
[2020-12-26] MEDS: ALPRAZolam 0.5 MG TAB PO SCH ×5 (00:15→23:58)
[2020-12-26 05:11] VITALS: BP 80/41
[2020-12-26] MEDS: FUROSEMIDE 40 MG/4 ML VIAL IV SCH (06:00)
[2020-12-26 06:07] LABS: Basophils # (auto) 0.1 10 ^3/uL (0-0.2); Basophils % (auto) 1.7 % (0.0-2.0); Eosinophils # (auto) 0.6 10 ^3/uL (0-0.8); Eosinophils % (auto) 8.8 % (0.0-7.0); Hematocrit 33.1 % (41.0-53.0); Hemoglobin 10.9 g/dL (13.5-17.5); Lymphocytes # (auto) 0.7 10 ^3/uL (0.4-5.4); Lymphocytes % (auto) 11.3 % (10.0-50.0); Mean Corpuscular Hemoglobin 30.4 pg (28.0-32.0); Mean Corpuscular Hgb Conc. 32.9 g/dL (32.0-36.0); Mean Corpuscular Volume 92.2 fL (80.0-100.0); Monocytes # (auto) 0.7 10 ^3/uL (0-1.3); Monocytes % (auto) 10.3 % (0.0-12.0); Neutrophils # (auto) 4.4 10 ^3/uL (1.6-8.6); Neutrophils % (auto) 67.9 % (37.0-80.0); Nucleated Red Blood Cells % 0.2 %; Red Blood Cells 3.59 10^6/uL (4.5-5.90); Red Cell Distribution Width 17.8 % (11.8-14.3); White Blood Cell 6.5 10^3/uL (4.4-10.8)
[2020-12-26 06:21] LABS: BUN/Creatinine Ratio 27.4; Calcium 8.2 mg/dL (8.5-10.1); Magnesium 2.7 mg/dL (1.6-2.6); Potassium 4.2 mmol/L (3.5-5.1)
[2020-12-26] MEDS: LEVOTHYROXINE SODIUM 50 MCG TAB PO SCH (07:00)
[2020-12-26] MEDS ORDERED: SODIUM CHLORIDE 0.9% 250 ML IV ONE (08:30)
[2020-12-26] MEDS ORDERED: ALBUMIN 5% 250 ML IV ONE (08:30)
[2020-12-26] MEDS ORDERED: IOHEXOL 350 MG/ML 100ML IJ ONE (08:35)
[2020-12-26] MEDS: SOTALOL HCL 80 MG TAB PO SCH (09:59)
[2020-12-26] MEDS: LISINOPRIL 5 MG TAB PO SCH (10:00)
[2020-12-26 10:02] VITALS: BP 75/54
[2020-12-26] MEDS: cefTRIAXone 1GM/50ML D5W 50 ML IV SCH (10:10)
[2020-12-26] MEDS: PANTOPRAZOLE 40 MG/10 ML VIAL INJ IV SCH (10:10)
[2020-12-26] MEDS: POTASSIUM CHL 20 Meq TABLET PO SCH (10:11)
[2020-12-26] MEDS: ENOXAPARIN SOD 60 MG/0.6 ML SYRINGE SC SCH (10:11)
[2020-12-26] MEDS: ASPirin-EC 81 mg tab PO SCH (10:11)
[2020-12-26 10:25] VITALS: BP 95/49
[2020-12-26] MEDS: DOBUTamine 1000MCG/ML 250 ML IV SCH (12:43)
[2020-12-26 13:00] VITALS: BP 95/48
[2020-12-26 20:00] VITALS: BP 105/67
[2020-12-26] MEDS: FUROSEMIDE 20 MG/2 ML VIAL IV SCH (20:18)
[2020-12-26 22:00] VITALS: BP 106/67
[2020-12-26] MEDS: ATORVASTATIN 20 MG TAB PO SCH (22:26)
[2020-12-27 05:00] VITALS: BP 104/56
[2020-12-27] MEDS: FUROSEMIDE 20 MG/2 ML VIAL IV SCH ×2 (05:45→17:45)
[2020-12-27] MEDS: ALPRAZolam 0.5 MG TAB PO SCH ×3 (05:46→17:45)
[2020-12-27 06:27] LABS: BUN/Creatinine Ratio 26.2; Calcium 8.5 mg/dL (8.5-10.1); Magnesium 3.1 mg/dL (1.6-2.6); Phosphorus 2.6 mg/dL (2.5-4.90); Potassium 4.5 mmol/L (3.5-5.1)
[2020-12-27] MEDS: LEVOTHYROXINE SODIUM 50 MCG TAB PO SCH (06:47)
[2020-12-27 08:00] VITALS: BP 91/51
[2020-12-27 09:20] VITALS: BP 91/59
[2020-12-27] MEDS: cefTRIAXone 1GM/50ML D5W 50 ML IV SCH (09:28)
[2020-12-27] MEDS: POTASSIUM CHL 20 Meq TABLET PO SCH (09:29)
[2020-12-27] MEDS: PANTOPRAZOLE 40 MG/10 ML VIAL INJ IV SCH (09:29)
[2020-12-27] MEDS: SOTALOL HCL 80 MG TAB PO SCH (09:30)
[2020-12-27] MEDS: ASPirin-EC 81 mg tab PO SCH (09:30)
[2020-12-27] MEDS: ENOXAPARIN SOD 60 MG/0.6 ML SYRINGE SC SCH (09:30)
[2020-12-27 14:01] VITALS: BP 99/58
[2020-12-27 16:41] VITALS: BP 96/46
[2020-12-27] MEDS: DOBUTamine 1000MCG/ML 250 ML IV SCH (17:45)
[2020-12-27 22:00] VITALS: BP 97/48
[2020-12-27] MEDS: ATORVASTATIN 20 MG TAB PO SCH (22:55)
[2020-12-28] MEDS: ALPRAZolam 0.5 MG TAB PO SCH ×5 (00:15→22:57)
[2020-12-28 05:43] VITALS: BP 127/49
[2020-12-28] MEDS: FUROSEMIDE 20 MG/2 ML VIAL IV SCH ×2 (06:00→17:04)
[2020-12-28 06:24] LABS: Basophils # (auto) 0 10 ^3/uL (0-0.2); Basophils % (auto) 0.7 % (0.0-2.0); Eosinophils # (auto) 0.6 10 ^3/uL (0-0.8); Eosinophils % (auto) 8.9 % (0.0-7.0); Hematocrit 35.3 % (41.0-53.0); Hemoglobin 11.7 g/dL (13.5-17.5); Lymphocytes # (auto) 0.8 10 ^3/uL (0.4-5.4); Lymphocytes % (auto) 11.7 % (10.0-50.0); Mean Corpuscular Hemoglobin 30.2 pg (28.0-32.0); Mean Corpuscular Hgb Conc. 33.3 g/dL (32.0-36.0); Mean Corpuscular Volume 90.7 fL (80.0-100.0); Monocytes # (auto) 0.7 10 ^3/uL (0-1.3); Monocytes % (auto) 9.4 % (0.0-12.0); Neutrophils % (auto) 69.3 % (37.0-80.0); Nucleated Red Blood Cells % 0.1 %; Red Blood Cells 3.89 10^6/uL (4.5-5.90); Red Cell Distribution Width 17.3 % (11.8-14.3); White Blood Cell 7.2 10^3/uL (4.4-10.8)
[2020-12-28] MEDS: LEVOTHYROXINE SODIUM 50 MCG TAB PO SCH (06:38)
[2020-12-28 06:39] LABS: Calcium 8.2 mg/dL (8.5-10.1); Potassium 5.2 mmol/L (3.5-5.1)
[2020-12-28 06:41] LABS: BUN/Creatinine Ratio 23.2
[2020-12-28 08:52] VITALS: BP 131/54
[2020-12-28] MEDS: cefTRIAXone 1GM/50ML D5W 50 ML IV SCH (11:19)
[2020-12-28] MEDS: PANTOPRAZOLE 40 MG/10 ML VIAL INJ IV SCH (11:19)
[2020-12-28] MEDS: ASPirin-EC 81 mg tab PO SCH (11:19)
[2020-12-28] MEDS: SOTALOL HCL 80 MG TAB PO SCH (11:20)
[2020-12-28 13:17] VITALS: BP 106/71
[2020-12-28 17:17] VITALS: BP 112/72
[2020-12-28 22:29] VITALS: BP 100/48
[2020-12-28] MEDS: APIXABAN 5 MG TAB PO SCH (22:57)
[2020-12-28] MEDS: ATORVASTATIN 20 MG TAB PO SCH (22:57)
[2020-12-29 05:00] VITALS: BP 124/41
[2020-12-29] MEDS: ALPRAZolam 0.5 MG TAB PO SCH ×2 (06:13→12:22)
[2020-12-29] MEDS: FUROSEMIDE 20 MG/2 ML VIAL IV SCH ×2 (06:13→17:44)
[2020-12-29] MEDS: LEVOTHYROXINE SODIUM 50 MCG TAB PO SCH (06:14)
[2020-12-29 06:22] LABS: Calcium 8.2 mg/dL (8.5-10.1); Potassium 4.1 mmol/L (3.5-5.1)
[2020-12-29 06:25] LABS: BUN/Creatinine Ratio 20.5
[2020-12-29 09:00] VITALS: BP 138/50
[2020-12-29] MEDS: PANTOPRAZOLE 40 MG/10 ML VIAL INJ IV SCH (09:36)
[2020-12-29] MEDS: cefTRIAXone 1GM/50ML D5W 50 ML IV SCH (09:37)
[2020-12-29] MEDS: ASPirin-EC 81 mg tab PO SCH (09:37)
[2020-12-29] MEDS: SOTALOL HCL 80 MG TAB PO SCH (09:37)
[2020-12-29] MEDS: APIXABAN 5 MG TAB PO SCH ×2 (09:37→21:59)
[2020-12-29 13:00] VITALS: BP 106/74
[2020-12-29 17:00] VITALS: BP 101/48
[2020-12-29 22:00] VITALS: BP 81/47
[2020-12-29] MEDS: ATORVASTATIN 20 MG TAB PO SCH (22:00)
[2020-12-30 05:00] VITALS: BP 92/55
[2020-12-30] MEDS: LEVOTHYROXINE SODIUM 50 MCG TAB PO SCH (05:22)
[2020-12-30] MEDS: FUROSEMIDE 20 MG/2 ML VIAL IV SCH (05:29)
[2020-12-30 09:00] VITALS: BP 93/57
[2020-12-30] MEDS: APIXABAN 5 MG TAB PO SCH (09:16)
[2020-12-30] MEDS: ASPirin-EC 81 mg tab PO SCH (09:16)
[2020-12-30] MEDS: cefTRIAXone 1GM/50ML D5W 50 ML IV SCH (09:16)
[2020-12-30] MEDS: SOTALOL HCL 80 MG TAB PO SCH (09:21)
[2020-12-30 13:00] VITALS: BP 87/49
== END 2020-12-30 17:00 | DRG 871 ==
LOC: ER 09:12 → EDBD 09:12 → TELE 15:15 → TELE-CENTR 18:06
PROVIDERS: ADMIT Hospitalist; ATTEND Internal Medicine
PROC: 4B02XTZ Measurement of Cardiac Defibrillator, External Approach (ICD-10-PCS; principal; 2020-12-26)
DX: A41.9 Sepsis, unspecified organism (principal); N17.0 Acute kidney failure with tubular necrosis; G93.41 Metabolic encephalopathy; I50.23 Acute on chronic systolic (congestive) heart failure; E43 Unspecified severe protein-calorie malnutrition; I21.A1 Myocardial infarction type 2; I82.411 Acute embolism and thrombosis of right femoral vein; I13.0 Hypertensive heart and chronic kidney disease with heart failure and stage 1 through stage 4 chronic kidney disease, or unspecified chronic kidney disease; I42.0 Dilated cardiomyopathy; N39.0 Urinary tract infection, site not specified; Z66 Do not resuscitate; I50.82 Biventricular heart failure; N18.31 Chronic kidney disease, stage 3a; I25.5 Ischemic cardiomyopathy; I48.0 Paroxysmal atrial fibrillation; F01.50 Vascular dementia, unspecified severity, without behavioral disturbance, psychotic disturbance, mood disturbance, and anxiety; E03.9 Hypothyroidism, unspecified; F02.80 Dementia in other diseases classified elsewhere, unspecified severity, without behavioral disturbance, psychotic disturbance, mood disturbance, and anxiety; G30.9 Alzheimer's disease, unspecified; I73.9 Peripheral vascular disease, unspecified; J44.9 Chronic obstructive pulmonary disease, unspecified; Z20.822 Contact with and (suspected) exposure to COVID-19; F32.A Depression, unspecified; K21.9 Gastro-esophageal reflux disease without esophagitis; I25.10 Atherosclerotic heart disease of native coronary artery without angina pectoris; N13.9 Obstructive and reflux uropathy, unspecified; E87.6 Hypokalemia; E87.5 Hyperkalemia; S80.819A Abrasion, unspecified lower leg, initial encounter; Z68.20 Body mass index [BMI] 20.0-20.9, adult; Z95.810 Presence of automatic (implantable) cardiac defibrillator; Z95.1 Presence of aortocoronary bypass graft; Z79.01 Long term (current) use of anticoagulants; Z79.890 Hormone replacement therapy; Z79.899 Other long term (current) drug therapy; Z82.49 Family history of ischemic heart disease and other diseases of the circulatory system; Z87.891 Personal history of nicotine dependence; Y93.89 Activity, other specified; Y92.89 Other specified places as the place of occurrence of the external cause; Y99.8 Other external cause status
CPT/HCPCS: 36415; 36600; 70450; 71045; 71275; 80048; 80053; 81001; 82140; 82805; 82962; 83036; 83735; 83880; 84100; 84443; 84484; 85025; 85379; 85610; 85730; 87040; 87081; 87086; 87088; 87186; 87426; 93005; 93306; 93970; 96374; 97163; C9113; G0378; J0696